=== PATIENT | female | born 1940 | race Hispanic/Latino ===

== ENCOUNTER 2018-08-16 10:13 | Emergency (ER) | payer OTHER ==
[2018-08-16 10:54] LABS: Absolute Lymphocytes (CBC) 1.3 K/uL (0.7-4.9); Absolute Monocytes 0.6 K/uL (0.1-1.3); Absolute Neutrophil 8.6 K/uL (1.8-8.0); Basophils % 0.9 % (0-1.3); Eosinophils % 0.8 % (0-4.4); Hematocrit 32.8 % (36.0-45.0); Lymphocytes % 12.2 % (15.3-44.8); MPV 8.2 fL (7.6-11.3); Monocytes % 5.5 % (3.3-12.3); RBC Red Blood Cell Count 3.62 M/uL (3.86-4.86)
--- NOTE | 2018-08-16 11:08 | RAD REPORT ---
EXAM DESCRIPTION: CT - Head Brain Wo Cont - 08/16/2018 10:46 am CLINICAL HISTORY: CONFUSED CVA symptomology, headache COMPARISON: HEAD BRAIN W O CONTRAST dated 12/27/2009; HEAD BRAIN W O CONTRAST dated 11/13/2009 TECHNIQUE: All CT scans are performed using dose optimization technique as appropriate and may inclu de automated exposure control or mA/KV adjustment according to patient size. FINDINGS: No intracranial hemorrhage, hydrocephalus or extra-axial fluid collection.7 cm area of dim inished density is seen in the right frontoparietal region compatible with nonhemorrhagic CVA. The paranasal sinuses and mastoids are clear. The calvarium is intact. IMPRESSION: 7 cm area of non-hemorrhagic CVA right frontoparietal region. The findings were discussed with Dr. Cordero On 08/16/2018 at 11 a.m. by telephone.
[2018-08-16] MEDS ORDERED: ONDANSETRON 4 MG/2 ML VIAL ONE (11:21)
[2018-08-16 11:24] LABS: Urine Bacteria 20-50 /HPF (<20); Urine Culture Reflex Order NOT NEEDED
--- NOTE | 2018-08-16 11:31 | RAD REPORT ---
EXAM DESCRIPTION: RAD - Chest Single View - 08/16/2018 11:11 am CLINICAL HISTORY: AMS, ESRD Chest pain. COMPARISON: Chest Single View dated 12/15/2016; Chest Single View dated 04/19/2016; Chest Single View da kayleen 04/17/2016; CHEST SINGLE VIEW dated 10/22/2013 FINDINGS: Portable technique limits examination quality. Moderate pulmonary edema is seen. The heart is significantly enlarged in size. No displaced fractures . IMPRESSION: Moderate CHF versus volume overload pattern.
[2018-08-16 11:34] LABS: Potassium 3.2 mmol/L (3.5-5.1)
[2018-08-16] MEDS ORDERED: ASPIRIN 81 MG CHEWABLE TABLET ONE (11:39)
--- NOTE | 2018-08-16 11:42 | ER ---
Nurse's Notes [facility] Name: Beti Sanchez Age: 77 yrs Sex: Female : 1940 Arrival Date: 08/16/2018 Time: 10:18 Bed 6 Private MD: Diagnosis: Ischemic stroke;Altered mental status, unspecified;End stage renal disease Presentation: 08/16 10:20 Presenting complaint: EMS states: pt was taken to dialysis this morning, had missed sg dialysis on Sunday, dialysis nurse reported the pt to be altered and confused so notified family, family reported that the patient became confused last night around 7 pm. pt aa\T\ox1 to self, pt family reports that the patient is normally aa\T\ox3 at home. Transition of care: patient was not received from another setting of care. Onset of symptoms was August 16, 2018. Risk Assessment: Do you want to hurt yourself or someone else? Patient reports no desire to harm self or others. Initial Sepsis Screen: Does the patient meet any 2 criteria? HR > 90 bpm. Does the patient have a suspected source of infection? Yes: Other: dialysis pt. Care prior to arrival: IV initiated. 22 GA, in the right forearm, Glucose check: 127. 10:20 Method Of Arrival: EMS: [facility] sg 10:20 Acuity: KEANU 2 sg 10:20 No acute neurological deficit is noted. The patients blood glucose was checked before iw arriving to the hospital and was found to be normal. Triage Assessment: 10:50 The onset of the patients symptoms was August 15, 2018 at 19:00. iw 10:50 Neuro: Reports. iw Stroke Activation: Symptom onset > 6 hours Physician: Stroke Attending; Name: ; Notified At: ; Arrived At: Physician: Chief Stroke Resident; Name: ; Notified At: ; Arrived At: Physician: Stroke Resident; Name: ; Notified At: ; Arrived At: Physician: ED Attending; Name: ; Notified At: ; Arrived At: Physician: ED Resident; Name: ; Notified At: ; Arrived At: Historical: - Allergies: 10:34 No Known Allergies; sg - Home Meds: 11:22 Bumex Oral 4 mg daily [Active]; Lantus 100 unit/mL Sub-Q soln 15 units daily [Active]; sg metaxalone 400 mg Oral tab daily [Active]; omeprazole 40 mg Oral cpDR 1 cap once daily [Active]; Phenergan Oral 25 mg daily [Active]; ropinirole 0.25 mg Oral tab 1 tab every 6 hours PRN [Active]; clonidine HCl 0.1 mg Oral tab 1 tab once daily [Active]; PhosLo 667 mg Oral cap 2 caps 3 times per day [Active]; - PMHx: 10:34 Diabetes - NIDDM; ESRD; sg - PSHx: 10:34 HD left arm access; sg - Immunization history:: Adult Immunizations unknown. - Social history:: Smoking status: Patient/guardian denies using tobacco. - Family history:: not pertinent. - Ebola Screening: : Patient negative for fever greater than or equal to 101.5 degrees Fahrenheit, and additional compatible Ebola Virus Disease symptoms Patient denies exposure to infectious person Patient denies travel to an Ebola-affected area in the 21 days before illness onset No symptoms or risks identified at this time. - Hospitalizations: : No recent hospitalization is reported. Screenin:42 Abuse screen: Denies threats or abuse. Denies injuries from another. Nutritional iw screening: No deficits noted. Tuberculosis screening: No symptoms or risk factors identified. Fall Risk IV access (20 points). Assessment: 10:35 General: Appears in no apparent distress. Behavior is calm. General: Denies fever, iw feeling ill. Pain: Denies pain. Neuro: Level of Consciousness is awake, alert, obeys commands, Oriented to person, place, time, Moves all extremities. Cardiovascular: Heart tones S1 S2 present Patient's skin is warm and dry. Dialysis shunt: in the dorsal aspect of left forearm, with palpable thrill, with auscultated bruit, with no erythema, with no edema, no bleeding noted. Cardiovascular: Denies chest pain, shortness of breath, Pulses are all present. Edema is absent. Respiratory: Respiratory effort is even, unlabored, Respiratory pattern is regular, symmetrical, Breath sounds are clear bilaterally. Denies cough, shortness of breath. GI: Abdomen is round Bowel sounds present X 4 quads. Abd is soft and non tender X 4 quads. Patient currently denies diarrhea, vomiting. Derm: Skin is intact, is healthy with good turgor. Musculoskeletal: Range of motion: intact in all extremities. 10:35 Reassessment: pt completed almost all dialysis, stopped 30 minutes short, pt is A\T\OX3, iw keeps repeating same sentence, states she wants to go home, daughter in law at bedside but states she does not normally see her every day and does not know how pt normally acts. 10:35 VAN Scoring: Arm Drift: Patients demonstrates NO arm weakness. Patient is VAN Negative. iw 10:40 T-PA (Activase) Screening: Contraindications: Patient reports onset of signs and iw symptoms of stroke greater than 6 hours ago: Yes. 11:10 Patient has been NPO before screening. The patient is alert, and able to follow iw commands. The patient does not exhibit slurred or garbled speech. The patient is not exhibiting difficulty speaking. The patient does not exhibit difficulty understanding words. The patient is able to swallow own secretions with no drooling or need for suction. Patient tolerated one teaspoon of water. No drooling, immediate coughing, gurgling, or clearing of the throat was noted. The patient tolerated 90mL of water. No drooling, immediate coughing, gurgling, or clearing of the throat was noted. The patient passed the bedside swallow screening. Oral medications may be given as ordered. Contact Physician for further diet orders. Provider notified of bedside swallow screening results: Ervin Cordero MD. 11:14 Reassessment: Spoke with daughter on phone, will come to ER. iw 12:48 Reassessment: Patient appears in no apparent distress at this time. No changes from iw previously documented assessment. 13:30 Reassessment: Patient appears in no apparent distress at this time. Patient and/or iw family updated on plan of care and expected duration. Pain level reassessed. Patient denies pain at this time. Vital Signs: 10:32 BP 136 / 77; Pulse 127 MON; Resp 17; Temp 97.6; Pulse Ox 98% on R/A; sg 10:55 BP 135 / 65; Pulse 118; Resp 16 S; Pulse Ox 98% on R/A; Pain 0/10; iw 12:48 BP 146 / 79; Pulse 118; Resp 16 S; Pulse Ox 99% on R/A; Pain 0/10; iw 13:20 BP 114 / 63; Pulse 107; Resp 16; Temp 98.0(TE); Pulse Ox 98% on R/A; Pain 0/10; iw 10:32 A fib sg NIH Stroke Scale Scores: 11:10 NIHSS Score: 3 iw ED Course: 10:18 Patient arrived in ED. rn 10:19 Ervin Cordero MD is Attending Physician. rn 10:25 Patient has correct armband on for positive identification. iw 10:30 Maintain EMS IV. Dressing intact. Good blood return noted. Site clean \T\ dry. Gauge \T\ iw site: 22RFA. 10:32 Triage completed. sg 10:33 Arm band placed on. sg 10:36 EKG done, by agricultural engineering technicians. reviewed by Ervin Cordero MD. sm3 10:39 Jumana Malik, GUILLERMO is Primary Nurse. iw 10:40 Initial lab(s) drawn, by me, sent to lab. iw 10:45 CT completed. Patient tolerated procedure well. Patient moved to CT via stretcher. sj Patient moved back from CT. 10:46 CT Head Brain wo Cont In Process Unspecified. EDMS 10:57 First set of blood cultures drawn by ED staff. dh3 10:57 Inserted saline lock: 22 gauge in right antecubital area, using aseptic technique. 3 Blood collected. by Tim Ramos. 11:11 XRAY Chest (1 view) In Process Unspecified. EDMS 11:39 transfer initiated with Alysa at the [facility] transfer center. ms 11:59 Repeat lab(s) drawn. by ny, sent to lab. 3 12:[address] Flores the hospitalist and Dr. De La Cruz the neurologist manager of broadcast content for [facility] with Dr. Cordero for patient transfer consultation. 12:11 administrative approval given by Sarah Dunham RN transfer center/ patient has been eb accepted to the [facility] 22 tower bed 2222/ Dr. Flores has accepted the patient in transfer/ report to be called to [phone]. 14:01 No provider procedures requiring assistance completed. Patient transferred, IV remains iw in place. Administered Medications: 11:00 Drug: Zofran 4 mg Route: IVP; Site: right forearm; iw 11:20 Drug: Aspirin Chewable Tablet 324 mg Route: PO; iw Point of Care Testing: Blood Glucose: 10:32 Blood Glucose: 127 mg/dL; iw Ranges: Outcome: 11:41 ER care complete, transfer ordered by . guillermo 14:04 Transferred by ground EMS to [facility], [facility] [place], Transfer form completed. iw X-rays sent w/ patient. 14:04 Condition: good 14:04 Discharge instructions given to patient, family, Instructed on the need for transfer, Demonstrated understanding of instructions. 14:05 Patient left the ED. NIH Stroke Scale - NIH Stroke Score Date: 08/16/2018 Time: 11:10 Total Score = 3 1a. Level of Consciousness (LOC) - 0(Alert) 1b. Level of Consciousness (LOC) (Year \T\ Age) - 1(One) 1c. LOC Commands (Open \T\ Closes Eyes/Fugitive Detective) - 0(Both) 2. Best Gaze (Lateral Gaze Paresis) - 0(Normal) 3. Visual Field Loss - 0(No visual loss) 4. Facial Palsy - 0(Normal) 5a. Left Arm: Motor (10-second hold) - 0(No drift) 5b. Right Arm: Motor (10-second hold) - 0(No drift) 6a. Left Leg: Motor (5-second hold - always test supine) - 0(No drift) 6b. Right Leg: Motor (5-second hold - always test supine) - 0(No drift) 7. Limb Ataxia (finger/nose \T\ heel/christianson - test with eyes open) - 0(Absent) 8. Sensory Loss (pinprick arms/legs/face) - 0(Normal) 9. Best Language: Aphasia (description/naming/reading) - 1(Mild to moderate aphasia) 10. Dysarthria (speech clarity - read or repeat words) - 0(Normal) 11. Extinction and Inattention (visual/tactile/auditory/spatial/personal) - 1(Present) Initials: Signatures: Dispatcher [employer] EDMarino Serna RN RN sg Jones, Susan sj Williams, Irene, RN RN iw Amber Perez ms, Roman, MD MD rn Herrera, Miesha 3 Carlene Delgado Shakira sm3 Corrections: (The following items were deleted from the chart) 11:17 10:20 Care prior to arrival: IV initiated. 22 GA, in the right forearm, sg sg
--- NOTE | 2018-08-16 11:42 | EDPHYS ---
Physician Documentation [facility] Name: Beti Sanchez Age: 77 yrs Sex: Female : 1940 Arrival Date: 08/16/2018 Time: 10:18 Bed 6 Private MD: ED Physician Ervin Cordero HPI: 08/16 10:20 This 77 yrs old Female presents to ER via Unassigned with complaints of AMS. rn 10:20 The patient presents with confusion, decreased responsiveness. Onset: The rn symptoms/episode began/occurred last night, at 20:00. Possible causes: unknown. Associated signs and symptoms: Pertinent positives: confusion, Pertinent negatives: abdominal pain, chest pain, headache, seizure, shortness of breath. Current symptoms: In the emergency department the patient's symptoms have improved. It is unknown whether or not the patient has had similar symptoms in the past. Sent from dialysis for AMS, family reported to EMS that noticed change in sensorium last night around 1999, patient denies pain, only reports generalized weakness. NO fever. Normal glucose for EMS. Only did about 30 min of dialysis today and sent for AMS. NO known trauma. . Historical: - Allergies: 10:34 No Known Allergies; sg - Home Meds: 11:22 Bumex Oral 4 mg daily [Active]; Lantus 100 unit/mL Sub-Q soln 15 units daily [Active]; sg metaxalone 400 mg Oral tab daily [Active]; omeprazole 40 mg Oral cpDR 1 cap once daily [Active]; Phenergan Oral 25 mg daily [Active]; ropinirole 0.25 mg Oral tab 1 tab every 6 hours PRN [Active]; clonidine HCl 0.1 mg Oral tab 1 tab once daily [Active]; PhosLo 667 mg Oral cap 2 caps 3 times per day [Active]; - PMHx: 10:34 Diabetes - NIDDM; ESRD; sg - PSHx: 10:34 HD left arm access; sg - Immunization history:: Adult Immunizations unknown. - Social history:: Smoking status: Patient/guardian denies using tobacco. - Family history:: not pertinent. - Ebola Screening: : Patient negative for fever greater than or equal to 101.5 degrees Fahrenheit, and additional compatible Ebola Virus Disease symptoms Patient denies exposure to infectious person Patient denies travel to an Ebola-affected area in the 21 days before illness onset No symptoms or risks identified at this time. - Hospitalizations: : No recent hospitalization is reported. ROS: 10:20 Constitutional: Negative for fever, chills, and weight loss, Eyes: Negative for injury, rn pain, redness, and discharge, Neck: Negative for injury, pain, and swelling, Cardiovascular: Negative for chest pain, palpitations, and edema, Respiratory: Negative for shortness of breath, cough, wheezing, and pleuritic chest pain, Abdomen/GI: Negative for abdominal pain, nausea, vomiting, diarrhea, and constipation, MS/Extremity: Negative for injury and deformity, Skin: Negative for injury, rash, and discoloration, Neuro: Negative for headache, numbness, tingling, and seizure. Exam: 10:20 Constitutional: This is a well developed, well nourished patient who is awake, alert, rn and in no acute distress. Head/Face: Normocephalic, atraumatic. Eyes: Pupils equal round and reactive to light, extra-ocular motions intact. Lids and lashes normal. Conjunctiva and sclera are non-icteric and not injected. Cornea within normal limits. Periorbital areas with no swelling, redness, or edema. ENT: dry MM Neck: Trachea midline, no thyromegaly or masses palpated, and no cervical lymphadenopathy. Supple, full range of motion without nuchal rigidity, or vertebral point tenderness. No Meningismus. Cardiovascular: Irregular rate and rhythm. No pulse deficits. Respiratory: Lungs have equal breath sounds bilaterally, diminished bilateral bases. Abdomen/GI: soft, non-tender Skin: Warm, dry, no evidence of cellulitis. MS/ Extremity: Pulses equal, no cyanosis. Neurovascular intact. Full, normal range of motion. Equal circumference. Neuro: Awake and alert, GCS 15, oriented to person, place, time, and situation. Cranial nerves II-XII grossly intact. Motor strength 4/5 in all extremities. Sensory grossly intact. 10:38 ECG was reviewed by the Attending Physician. rn Vital Signs: 10:32 BP 136 / 77; Pulse 127 MON; Resp 17; Temp 97.6; Pulse Ox 98% on R/A; sg 10:55 BP 135 / 65; Pulse 118; Resp 16 S; Pulse Ox 98% on R/A; Pain 0/10; iw 12:48 BP 146 / 79; Pulse 118; Resp 16 S; Pulse Ox 99% on R/A; Pain 0/10; iw 13:20 BP 114 / 63; Pulse 107; Resp 16; Temp 98.0(TE); Pulse Ox 98% on R/A; Pain 0/10; iw 10:32 A fib sg NIH Stroke Scale Scores: 11:10 NIHSS Score: 3 iw MDM: 10:19 Patient medically screened. rn 11:07 ED course: No TPA indicated due to last known normal last night and large cerebral rn infarction on CT. Family contacted and are coming in to hospital. . 11:39 Differential Diagnosis: CVA, electrolyte abnormality, hypoglycemia, intracranial bleed, rn volume depletion. Differential Diagnosis: UTI. Data reviewed: vital signs, nurses notes. Data reviewed: lab test result(s), EKG, radiologic studies, CT scan, and as a result, I will admit patient. Counseling: I had a detailed discussion with the patient and/or guardian regarding: the historical points, exam findings, and any diagnostic results supporting the discharge/admit diagnosis, lab results, radiology results, the need for further work-up and treatment in the hospital, the need to transfer to another facility. Medical screen evaluation completed. EMTALA emergency medical condition absent. Response to treatment: There is no appreciated change of the patient's symptoms at this time, and as a result, I will admit patient. 12:04 ED course: Accepted for transfer to [facility] for ischemic stroke. Still waiting on rn patient care. . 08/16 10:20 Order name: CBC with Diff rn 08/16 10:20 Order name: Basic Metabolic Panel; Complete Time: 11:38 rn 08/16 10:20 Order name: Lactate; Complete Time: 11:08 rn 08/16 10:20 Order name: Urine Culture rn 08/16 10:20 Order name: Urine Microscopic Only; Complete Time: 11:38 rn 08/16 10:20 Order name: Procalcitonin; Complete Time: 13:12 rn 08/16 10:20 Order name: XRAY Chest (1 view); Complete Time: 11:38 rn 08/16 10:20 Order name: CT Head Brain wo Cont; Complete Time: 11:21 rn 08/16 10:20 Order name: Blood Culture Adult (2) rn 08/16 10:20 Order name: N-Terminal Pro-brain Natriuretic Peptide; Complete Time: 11:38 rn 08/16 10:20 Order name: CBC with Automated Diff; Complete Time: 11:02 EDMS 08/16 10:42 Order name: Urine Dipstick--Ancillary (enter results) eb 08/16 11:41 Order name: BUN; Complete Time: 13:12 hb 08/16 10:20 Order name: IV Start; Complete Time: 10:41 rn 08/16 10:20 Order name: Urine Dipstick-Ancillary (obtain specimen); Complete Time: 10:41 rn 08/16 10:30 Order name: EKG; Complete Time: 10:30 rn 08/16 10:30 Order name: EKG - Nurse/Tech; Complete Time: 10:41 rn EC:38 Rate is 122 beats/min. Rhythm is irregularly irregular. QRS [place] is Normal. [place] interval rn is normal. QRS interval is normal. QT interval is normal. No Q waves. T waves are Inverted in leads I, aVL. ST Segment is depressed in leads V4, V5, V6. Clinical impression: Atrial Fibrillation. Interpreted by me. Reviewed by me. Administered Medications: 11:00 Drug: Zofran 4 mg Route: IVP; Site: right forearm; iw 11:20 Drug: Aspirin Chewable Tablet 324 mg Route: PO; iw Point of Care Testing: Blood Glucose: 10:32 Blood Glucose: 127 mg/dL; iw Ranges: Critical Glucose Levels:Adult <50 mg/dl or >400 mg/dl <40 mg/dl or >180 mg/dl Disposition: 08/16/18 11:41 Transfer ordered to [facility]. Diagnosis are Ischemic stroke, Altered mental status, unspecified, End stage renal disease. - Reason for transfer: Higher level of care. - Accepting physician is . - Condition is Stable. - Problem is new. - Symptoms are unchanged. NIH Stroke Scale - NIH Stroke Score Date: 08/16/2018 Time: 11:10 Total Score = 3 1a. Level of Consciousness (LOC) - 0(Alert) 1b. Level of Consciousness (LOC) (Year \T\ Age) - 1(One) 1c. LOC Commands (Open \T\ Closes Eyes/Alternative Financing Specialist) - 0(Both) 2. Best Gaze (Lateral Gaze Paresis) - 0(Normal) 3. Visual Field Loss - 0(No visual loss) 4. Facial Palsy - 0(Normal) 5a. Left Arm: Motor (10-second hold) - 0(No drift) 5b. Right Arm: Motor (10-second hold) - 0(No drift) 6a. Left Leg: Motor (5-second hold - always test supine) - 0(No drift) 6b. Right Leg: Motor (5-second hold - always test supine) - 0(No drift) 7. Limb Ataxia (finger/nose \T\ heel/christianson - test with eyes open) - 0(Absent) 8. Sensory Loss (pinprick arms/legs/face) - 0(Normal) 9. Best Language: Aphasia (description/naming/reading) - 1(Mild to moderate aphasia) 10. Dysarthria (speech clarity - read or repeat words) - 0(Normal) 11. Extinction and Inattention (visual/tactile/auditory/spatial/personal) - 1(Present) Initials: iw Signatures: Dispatcher [employer] EDMarino Serna RN RN sg Williams, Irene, RN RN iw Nieto, Roman, MD MD record label internship: (The following items were deleted from the chart) 10:40 10:20 Constitutional: This is a well developed, well nourished patient who is rn awake, alert, and in no acute distress. Head/Face: Normocephalic, atraumatic. Eyes: Pupils equal round and reactive to light, extra-ocular motions intact. Lids and lashes normal. Conjunctiva and sclera are non-icteric and not injected. Cornea within normal limits. Periorbital areas with no swelling, redness, or edema. ENT: dry MM Neck: Trachea midline, no thyromegaly or masses palpated, and no cervical lymphadenopathy. Supple, full range of motion without nuchal rigidity, or vertebral point tenderness. No Meningismus. Cardiovascular: Regular rate and rhythm. No pulse deficits. Respiratory: Lungs have equal breath sounds bilaterally, diminished bilateral bases. Abdomen/GI: soft, non-tender Skin: Warm, dry, no evidence of cellulitis. MS/ Extremity: Pulses equal, no cyanosis. Neurovascular intact. Full, normal range of motion. Equal circumference. Neuro: Awake and alert, GCS 15, oriented to person, place, time, and situation. Cranial nerves II-XII grossly intact. Motor strength 4/5 in all extremities. Sensory grossly intact. rn 11:43 11:41 CREATININE, SERUM+C.LAB.BRZ ordered. EDMS EDMS 14:05 11:41 08/16/2018 11:41 Transfer ordered to [facility]. iw Diagnosis is Ischemic stroke; Altered mental status, unspecified; End stage renal disease. Reason for transfer: Higher level of care. Accepting physician is . Condition is Stable. Problem is new. Symptoms are unchanged. rn
[2018-08-16 13:51] LABS: Urine Blood TRACE (NEG); Urine Glucose TRACE (NEG); Urine Protein 3+ (NEG)
[2018-08-16 14:39] VITALS: BP 114/63; TEMP 98; O2SAT 98
--- NOTE | 2018-08-16 15:16 | EKG ---
Test Date: 2018-08-16 Test Time: 10:36:33 Beck Tender: LUIS F MEASUREMENT RESULTS: Intervals: Rate: 122 NM: QRSD: 86 QT: 358 QTc: 510 Erwin: P: NM: QRS: -3 T: 189 INTERPRETIVE STATEMENTS: Atrial fibrillation with rapid ventricular response with premature ventricular or aberrantly conducted complexes Marked ST abnormality, possible inferior subendocardial injury Abnormal ECG Compared to ECG 12/15/2016 08:16:25 Ventricular premature complex(es) now present ST (T wave) deviation now present Sinus rhythm no longer present Left-axis deviation no longer present T-wave abnormality no longer present Electronically Signed On 08-16-18 15:15:35 CDT by Haroldo Arizmendi
== END 2018-08-16 14:05 | disposition short-term general hospital (02) ==
LOC: ER 10:13
DX: I63.9 Cerebral infarction, unspecified (principal); N18.6 End stage renal disease; E11.9 Type 2 diabetes mellitus without complications; Z79.4 Long term (current) use of insulin
CPT/HCPCS: 93005; 87040 ×2; 87088; 85025; 80048; 36415; 84520; 83605; 84145; 83880; 70450; 71045; 96374; 99285; J2405; 81003; 81015; 87086

== ENCOUNTER 2018-09-05 17:57 | Emergency (ER) | payer MEDICARE, OTHER ==
--- OUTSIDE RECORDS SUMMARY | 2018-09-05 18:00 | XMS REPORT ---
:1940 [facility] Address [address] [place] [address] [address]. [address] [place] [address] Care Team Providers Name Role Phone RENETTA BEASLEY Unavailable Unavailable Problems This patient has no known problems. Allergies, Adverse Reactions, Alerts This patient has no known allergies or adverse reactions. Medications This patient has no known medications. Results Test Description Test Time Test Comments Text Results Atomic Results Result Comments CBC (HEMOGRAM ONLY) 2018-08-20 05:52:00 Test Item Value Reference Range Comments WHITE BLOOD CELL COUNT (BEAKER) (test iohs=271) 10.4 K/ L 3.5-10.5 RED BLOOD CELL COUNT (BEAKER) (test yfyy=304) 4.15 M/ L 3.93-5.22 HEMOGLOBIN (BEAKER) (test jekk=601) 11.8 GM/DL 11.2-15.7 HEMATOCRIT (BEAKER) (test jsiw=167) 39.9 % 34.1-44.9 MEAN CORPUSCULAR VOLUME (BEAKER) (test neqd=897) 96.1 fL 79.4-94.8 MEAN CORPUSCULAR HEMOGLOBIN (BEAKER) (test unlk=087) 28.4 pg 25.6-32.2 MEAN CORPUSCULAR HEMOGLOBIN CONC (BEAKER) (test ycip=495) 29.6 GM/DL 32.2- 35.5 RED CELL DISTRIBUTION WIDTH (BEAKER) (test wkhx=316) 16.2 % 11.7-14.4 PLATELET COUNT (BEAKER) (test qclt=585) 347 K/CU MM 150-450 MEAN PLATELET VOLUME (BEAKER) (test omuq=302) 9.9 fL 9.4-12.3 NUCLEATED RED BLOOD CELLS (BEAKER) (test ouml=662) 0 /100 WBC 0-0 CALCIUM, [id number] 07:30:00 Test Item Value Reference Range Comments CALCIUM IONIZED (BEAKER) (test xgnq=448) 1.00 mmol/L 1.12-1.27 PH, BLOOD (BEAKER) (test vtcb=4834) 7.41 COMPREHENSIVE METABOLIC [id number] 06:54:00 Test Item Value Reference Range Comments TOTAL PROTEIN (BEAKER) 8.0 gm/dL 6.0-8.3 (test ppfq=774) ALBUMIN (BEAKER) (test 3.4 g/dL 3.5-5.0 xndd=7114) ALKALINE PHOSPHATASE 130 U/L 40-150 (BEAKER) (test eagw=680) BILIRUBIN TOTAL (BEAKER) 0.5 mg/dL 0.2-1.2 (test dgin=613) SODIUM (BEAKER) (test 137 meq/L 136-145 myrr=669) POTASSIUM (BEAKER) (test 3.9 meq/L 3.5-5.1 pvwd=366) CHLORIDE (BEAKER) (test 98 meq/L 98-107 mtns=524) CO2 (BEAKER) (test 27 meq/L 22-29 hhke=921) BLOOD UREA NITROGEN 26 mg/dL 7-21 (BEAKER) (test gxxk=181) CREATININE (BEAKER) (test 3.67 mg/dL 0.57-1.25 dfab=635) GLUCOSE RANDOM (BEAKER) 182 mg/dL 70-105 (test pkbt=014) CALCIUM (BEAKER) (test 9.0 mg/dL 8.4-10.2 xwzk=725) AST (SGOT) (BEAKER) (test 28 U/L 5-34 qyny=804) ALT (SGPT) (BEAKER) (test 50 U/L 6-55 kmko=035) EGFR (BEAKER) (test 12 mL/min/1.73 sq m ESTIMATED GFR IS NOT trnv=3883) ACCURATE CREATININE CLEARANCE IN PREDICTING GLOMERULAR FILTRATION RATE. ESTIMATED GFR IS NOT APPLICABLE FOR DIALYSIS PATIENTS. [id number] 06:48:00 Test Item Value Reference Range Comments PHOSPHORUS (BEAKER) (test wmbu=589) 3.7 mg/dL 2.3-4.7 [id number] 06:48:00 Test Item Value Reference Range Comments MAGNESIUM (BEAKER) (test dcwc=454) 2.1 mg/dL 1.6-2.6 CBC W/PLT COUNT & AUTO [id number] 06:33:00 Test Item Value Reference Range Comments WHITE BLOOD CELL COUNT (BEAKER) (test wmur=611) 10.8 K/ L 3.5-10.5 RED BLOOD CELL COUNT (BEAKER) (test pwok=024) 3.53 M/ L 3.93-5.22 HEMOGLOBIN (BEAKER) (test cthk=817) 10.0 GM/DL 11.2-15.7 HEMATOCRIT (BEAKER) (test uivv=579) 33.8 % 34.1-44.9 MEAN CORPUSCULAR VOLUME (BEAKER) (test cyjh=480) 95.8 fL 79.4-94.8 MEAN CORPUSCULAR HEMOGLOBIN (BEAKER) (test 28.3 pg 25.6-32.2 bcpy=491) MEAN CORPUSCULAR HEMOGLOBIN CONC (BEAKER) (test 29.6 GM/DL 32.2-35.5 neio=485) RED CELL DISTRIBUTION WIDTH (BEAKER) (test 16.3 % 11.7-14.4 hawr=576) PLATELET COUNT (BEAKER) (test qvon=707) 338 K/CU MM 150-450 MEAN PLATELET VOLUME (BEAKER) (test inhe=612) 9.7 fL 9.4-12.3 NUCLEATED RED BLOOD CELLS (BEAKER) (test 0 /100 WBC 0-0 lxbn=948) NEUTROPHILS RELATIVE PERCENT (BEAKER) (test 78 % pkpv=979) LYMPHOCYTES RELATIVE PERCENT (BEAKER) (test 11 % ucow=412) MONOCYTES RELATIVE PERCENT (BEAKER) (test 9 % aoee=261) EOSINOPHILS RELATIVE PERCENT (BEAKER) (test 1 % bcbc=789) BASOPHILS RELATIVE PERCENT (BEAKER) (test 1 % rzfo=183) NEUTROPHILS ABSOLUTE COUNT (BEAKER) (test 8.36 K/ L 1.56-6.13 dbwk=958) LYMPHOCYTES ABSOLUTE COUNT (BEAKER) (test 1.22 K/ L 1.18-3.74 tqdz=260) MONOCYTES ABSOLUTE COUNT (BEAKER) (test 0.94 K/ L 0.24-0.36 lfpl=746) EOSINOPHILS ABSOLUTE COUNT (BEAKER) (test 0.10 K/ L 0.04-0.36 pree=013) BASOPHILS ABSOLUTE COUNT (BEAKER) (test 0.08 K/ L 0.01-0.08 vkjt=185) IMMATURE GRANULOCYTES-RELATIVE PERCENT (BEAKER) 1 % 0-1 (test kgkl=0986) CBC (HEMOGRAM ONLY)2018-08-19 05:57:00 Test Item Value Reference Range Comments WHITE BLOOD CELL COUNT (BEAKER) (test ainz=991) 10.8 K/ L 3.5-10.5 RED BLOOD CELL COUNT (BEAKER) (test qwxx=787) 3.53 M/ L 3.93-5.22 HEMOGLOBIN (BEAKER) (test olxm=711) 10.0 GM/DL 11.2-15.7 HEMATOCRIT (BEAKER) (test yfbc=212) 33.8 % 34.1-44.9 MEAN CORPUSCULAR VOLUME (BEAKER) (test agph=950) 95.8 fL 79.4-94.8 MEAN CORPUSCULAR HEMOGLOBIN (BEAKER) (test 28.3 pg 25.6-32.2 wltb=174) MEAN CORPUSCULAR HEMOGLOBIN CONC (BEAKER) (test 29.6 GM/DL 32.2-35.5 usir=746) RED CELL DISTRIBUTION WIDTH (BEAKER) (test 16.3 % 11.7-14.4 azvb=350) PLATELET COUNT (BEAKER) (test jzyn=292) 338 K/CU MM 150-450 MEAN PLATELET VOLUME (BEAKER) (test ykrt=758) 9.7 fL 9.4-12.3 NUCLEATED RED BLOOD CELLS (BEAKER) (test 0 /100 WBC 0-0 thir=799) [id number] 12:10:00 Test Item Value Reference Range Comments PARTIAL THROMBOPLASTIN TIME (BEAKER) (test 37.1 seconds 22.5-36.0 xiqc=947) Prior to initiating heparinPROTHROMBIN TIME/[id number] 12:09:00 Test Item Value Reference Range Comments PROTIME (BEAKER) (test qgus=894) 15.1 seconds 11.7-14.7 INR (BEAKER) (test hmkk=847) 1.3 <=5.9 RECOMMENDED COUMADIN/WARFARIN INR THERAPY RANGESSTANDARD DOSE: 2.0 - 3.0 Includes: PROPHYLAXIS forvenous thrombosis, systemic embolization; TREATMENT for venous thrombosis and/or pulmonary embolus.HIGH RISK: Target INR is 2.5-3.5 for patients with mechanical heart valves.Prior to initiating heparinPLATELET [id number] 11:57:00 Test Item Value Reference Range Comments PLATELET COUNT (BEAKER) (test rvpo=317) 353 K/CU MM 150-450 HEPATITIS B [id number] 07:31:00 Test Item Value Reference Range Comments HEPATITIS B CORE TOTAL ANTIBODY (BEAKER) (test Nonreactive Nonreactive looe=014) HEPATITIS B SURFACE ANTIBODY (BEAKER) (test 193.7 mIU/mL <8.0 mmks=966) HEPATITIS B SURFACE ANTIGEN (2) (BEAKER) (test Nonreactive Nonreactive jwzh=9561) TSH/FREE T4 IF [id number] 06:33:00 Test Item Value Reference Range Comments THYROID STIMULATING HORMONE (BEAKER) (test 1.35 uIU/mL 0.35-4.94 hvrm=121) VITAMIN B12 AND [id number] 06:33:00 Test Item Value Reference Range Comments VITAMIN B12 (BEAKER) (test yfxo=286) 941 pg/mL 213-816 FOLATE (BEAKER) (test wftp=643) 7.1 ng/mL >=7.0 MR, BRAIN, WITHOUT [id number] 17:17:00Reason for exam:->StrokeWhat is the patient's sedation requirement?->No SedationFINAL REPORT MR, BRAIN, WITHOUT CONTRAST INDICATION: StrokeStroke TECHNIQUE: Multiplanar, multisequence MR imaging of the brain was obtained. COMPARISON: None FINDINGS: Restricted diffusion with concomitant decreased signal on ADC and FLAIR hyperintensity corresponding to the right SCIENTIFIC DIRECTOR distribution, with some MCA contribution more cranially, compatible with acute ischemic insult. No evidence of hemorrhagic transformation. Brain parenchyma is otherwise normal in morphology. Midline structures are normally developed. Scattered T2/ FLAIR hyperintense foci within the periventricular and subcortical white matter are nonspecific, however, statistically represent chronic microvascular ischemic changes. No hydrocephalus. Orbits are within normal limits. No obstructive paranasal sinus disease. Calvarium and skull base demonstrate marrow signal within normal limits for age without focal lesion. Additional findings: On sagittal T1-weighted images, intrinsic T1 shortening within the C4 vertebral body is noted and incompletely imaged on single phase exam. Intrinsic T1 shortening, however, statistically represents a benign osseous hemangioma. IMPRESSION: Acute stroke involving the right SCIENTIFIC DIRECTOR and MCA distribution. Upon review of the electronic medical record, clinical team is aware at this time and findings on MRI corresponding to findings on outside institution CT August 16, 2018. Signed: Lizzette Mendesepveronique Verified Date/Time: 08/17/2018 17:17:49 Reading Location: [address] Neuro Reading Room [facility] METABOLIC [id number] 14:58:00 Test Item Value Reference Range Comments SODIUM (BEAKER) (test 136 meq/L 136-145 hiqo=597) POTASSIUM (BEAKER) (test 5.6 meq/L 3.5-5.1 furs=968) CHLORIDE (BEAKER) (test 105 meq/L 98-107 bmcq=514) CO2 (BEAKER) (test 19 meq/L 22-29 zsrl=358) BLOOD UREA NITROGEN 24 mg/dL 7-21 (BEAKER) (test bxkv=929) CREATININE (BEAKER) (test 3.37 mg/dL 0.57-1.25 wzcq=809) GLUCOSE RANDOM (BEAKER) 178 mg/dL 70-105 (test lrtw=879) CALCIUM (BEAKER) (test 8.5 mg/dL 8.4-10.2 todg=806) EGFR (BEAKER) (test 13 mL/min/1.73 sq m ESTIMATED GFR IS NOT qdgw=4797) ACCURATE CREATININE CLEARANCE IN PREDICTING GLOMERULAR FILTRATION RATE. ESTIMATED GFR IS NOT APPLICABLE FOR DIALYSIS PATIENTS. [id number] 14:57:00 Test Item Value Reference Range Comments PHOSPHORUS (BEAKER) (test unqj=114) 5.7 mg/dL 2.3-4.7 [id number] 14:57:00 Test Item Value Reference Range Comments MAGNESIUM (BEAKER) (test ilwx=489) 2.2 mg/dL 1.6-2.6 CALCIUM, [id number] 14:48:00 Test Item Value Reference Range Comments CALCIUM IONIZED (BEAKER) (test mldi=839) 1.00 mmol/L 1.12-1.27 PH, BLOOD (BEAKER) (test pidg=2857) 7.37 HEMOGLOBIN [id number] 08:51:00 Test Item Value Reference Range Comments HEMOGLOBIN A1C (BEAKER) (test rjnz=902) 9.0 % 4.3-6.1 LIPID [id number] 06:30:00 Test Item Value Reference Range Comments TRIGLYCERIDES (BEAKER) (test wxil=068) 124 mg/dL CHOLESTEROL (BEAKER) (test noti=001) 84 mg/dL HDL CHOLESTEROL (BEAKER) (test xsnf=567) 36 mg/dL LDL CHOLESTEROL CALCULATED (BEAKER) (test 23 mg/dL biyl=320) Triglyceride Reference Range: Low Risk <150 Borderline 150- 199 High Risk 200-499 Very High Risk >=500Cholesterol Reference Range: Low Risk <200 Borderline 200-239 High Risk > 240HDL Cholesterol Reference Range: Low Risk >=60 High Risk <40LDL Cholesterol Reference Range: Optimal <100 Near Optimal 100-129 Borderline 130-159 High 160-189 Very High >=190 FastingTROPONIN [id number] 00:45:00 Test Item Value Reference Range Comments TROPONIN I (BEAKER) (test lkrl=761) 0.05 ng/mL 0.00-0.03 Troponin I (TnI) levels must be interpreted in the context of the presenting symptoms and the clinical findings. Elevated TnI levels indicate myocardial damage, but are not specific for ischemic heart disease. Elevated TnI levels are seen in patients with other cardiac conditions (including myocarditis and congestive heart failure), and slight TnI elevations occur in patients with other conditions, including sepsis, renal failure, acidosis, acute neurological disease, and persistent tachyarrhythmia.[id number] 18:40:00 Test Item Value Reference Range Comments RPR SCREEN (BEAKER) (test epak=624) Nonreactive Nonreactive [id number] 17:38:00 Test Item Value Reference Range Comments HOMOCYSTEINE (BEAKER) (test igdj=397) 21.2 umol/L 5.1-15.4 TROPONIN [id number] 17:25:00 Test Item Value Reference Range Comments TROPONIN I (BEAKER) (test aelk=140) 0.04 ng/mL 0.00-0.03 Troponin I (TnI) levels must be interpreted in the context of the presenting symptoms and the clinical findings. Elevated TnI levels indicate myocardial damage, but are not specific for ischemic heart disease. Elevated TnI levels are seen in patients with other cardiac conditions (including myocarditis and congestive heart failure), and slight TnI elevations occur in patients with other conditions, including sepsis, renal failure, acidosis, acute neurological disease, and persistent tachyarrhythmia.HEPATIC FUNCTION [id number] 17:20: 00 Test Item Value Reference Range Comments TOTAL PROTEIN (BEAKER) (test kyrc=568) 7.0 gm/dL 6.0-8.3 ALBUMIN (BEAKER) (test ttas=3421) 3.0 g/dL 3.5-5.0 BILIRUBIN TOTAL (BEAKER) (test btvp=556) 0.3 mg/dL 0.2-1.2 BILIRUBIN DIRECT (BEAKER) (test spdd=088) 0.2 mg/dL 0.1-0.5 ALKALINE PHOSPHATASE (BEAKER) (test cjhe=313) 71 U/L 40-150 AST (SGOT) (BEAKER) (test mwta=672) 11 U/L 5-34 ALT (SGPT) (BEAKER) (test hicl=073) 8 U/L 6-55 [id number] 17:20:00 Test Item Value Reference Range Comments PREALBUMIN (BEAKER) (test ymfk=763) 17 mg/dL 14-45 BASIC METABOLIC [id number] 17:20:00 Test Item Value Reference Range Comments SODIUM (BEAKER) (test 138 meq/L 136-145 lcvg=241) POTASSIUM (BEAKER) (test 3.2 meq/L 3.5-5.1 oqfz=420) CHLORIDE (BEAKER) (test 104 meq/L 98-107 ktxm=998) CO2 (BEAKER) (test 25 meq/L 22-29 tmla=829) BLOOD UREA NITROGEN 11 mg/dL 7-21 (BEAKER) (test mdnr=971) CREATININE (BEAKER) (test 1.92 mg/dL 0.57-1.25 vxbc=708) GLUCOSE RANDOM (BEAKER) 158 mg/dL 70-105 (test zucb=009) CALCIUM (BEAKER) (test 8.2 mg/dL 8.4-10.2 cdgm=557) EGFR (BEAKER) (test 25 mL/min/1.73 sq m ESTIMATED GFR IS NOT hmnl=7500) ACCURATE CREATININE CLEARANCE IN PREDICTING GLOMERULAR FILTRATION RATE. ESTIMATED GFR IS NOT APPLICABLE FOR DIALYSIS PATIENTS. CBC W/PLT COUNT & AUTO [id number] 17:19:00 Test Item Value Reference Range Comments WHITE BLOOD CELL COUNT (BEAKER) (test yiak=435) 11.9 K/ L 3.5-10.5 RED BLOOD CELL COUNT (BEAKER) (test pfrn=544) 3.23 M/ L 3.93-5.22 HEMOGLOBIN (BEAKER) (test gthb=196) 9.2 GM/DL 11.2-15.7 HEMATOCRIT (BEAKER) (test pyqs=723) 30.9 % 34.1-44.9 MEAN CORPUSCULAR VOLUME (BEAKER) (test vfsi=407) 95.7 fL 79.4-94.8 MEAN CORPUSCULAR HEMOGLOBIN (BEAKER) (test 28.5 pg 25.6-32.2 ztkq=900) MEAN CORPUSCULAR HEMOGLOBIN CONC (BEAKER) (test 29.8 GM/DL 32.2-35.5 xrft=289) RED CELL DISTRIBUTION WIDTH (BEAKER) (test 15.6 % 11.7-14.4 zffv=900) PLATELET COUNT (BEAKER) (test dyyy=105) 373 K/CU MM 150-450 MEAN PLATELET VOLUME (BEAKER) (test kdxe=548) 10.0 fL 9.4-12.3 NUCLEATED RED BLOOD CELLS (BEAKER) (test 0 /100 WBC 0-0 shgf=421) NEUTROPHILS RELATIVE PERCENT (BEAKER) (test 81 % lvte=158) LYMPHOCYTES RELATIVE PERCENT (BEAKER) (test 11 % pxhf=509) MONOCYTES RELATIVE PERCENT (BEAKER) (test 6 % derw=557) EOSINOPHILS RELATIVE PERCENT (BEAKER) (test 0 % rqrq=213) BASOPHILS RELATIVE PERCENT (BEAKER) (test 1 % qpcf=364) NEUTROPHILS ABSOLUTE COUNT (BEAKER) (test 9.71 K/ L 1.56-6.13 exky=816) LYMPHOCYTES ABSOLUTE COUNT (BEAKER) (test 1.32 K/ L 1.18-3.74 ueeo=349) MONOCYTES ABSOLUTE COUNT (BEAKER) (test 0.74 K/ L 0.24-0.36 tffi=121) EOSINOPHILS ABSOLUTE COUNT (BEAKER) (test 0.03 K/ L 0.04-0.36 xvxe=463) BASOPHILS ABSOLUTE COUNT (BEAKER) (test 0.07 K/ L 0.01-0.08 kqjw=854) IMMATURE GRANULOCYTES-RELATIVE PERCENT (BEAKER) 1 % 0-1 (test vmvn=6010)
--- OUTSIDE RECORDS SUMMARY | 2018-09-05 18:00 | XMS REPORT | Clinical Summary ---
:1940 Author Organization [facility] Address [address] [place] [address] Care Team Providers Name Role Phone Unavailable Primary Care Provider Unavailable Allergies No Known Allergies Medications Medication Sig Dispensed Refills Start Date End Date Status metaproterenol Take 10 mg 0 Active (ALUPENT) 10 MG by mouth 3 tablet (three) times daily. amLODIPine (NORVASC) Take 10 mg 0 Active 10 MG tablet by mouth daily. losartan (COZAAR) 100 Take 100 mg 0 Active MG tablet by mouth daily. omeprazole (PRILOSEC) Take 40 mg 0 Active 40 MG capsule by mouth daily. promethazine Take 25 mg 0 Active (PHENERGAN) 25 MG by mouth tablet every 6 (six) hours as needed for Nausea. ibuprofen Take 200 mg 0 Active (ADVIL,MOTRIN) 200 MG by mouth tablet every 6 (six) hours as needed for Pain. atorvastatin Take 1 30 tablet 11 08/20/2018 08/20/2019 Active (LIPITOR) 40 MG tablet (40 tablet mg total) by mouth nightly. apixaban (ELIQUIS) Take 1 60 tablet 0 08/20/2018 09/19/2018 Active 2.5 mg Tab tablet tablet (2.5 mg total) by mouth 2 (two) times daily for 30 days. carvedilol (COREG) Take 1 60 tablet 11 08/20/2018 08/20/2019 Active 3.125 MG tablet tablet (3.125 mg total) by mouth 2 (two) times daily. metoprolol Take 25 mg 0 08/20/2018 Discontinued (LOPRESSOR) 25 MG by mouth 2 tablet (two) times daily. Active Problems Problem Noted Date Stroke (cerebrum) 08/16/2018 Encounters Date Type Specialty Care Team Description 08/16/2018 - Hospital Encounter General Internal Sandra, Umar, Cerebrovascular accident (CVA), unspecified mechanism (HCC); 08/20/2018 Medicine Dialysis encephalopathy; Sara, Cerebrovascular accident (CVA) due to embolism of right middle cerebral artery (HCC) Vanessa Fang MD after 09/04/2017 Social History Tobacco Use Types Packs/Day Years Used Date Never Assessed Sex Assigned at Date Recorded Not on file Job Start Date Occupation Industry Not on file Not on file Not on file Travel History Travel Start Travel End No recent travel history available. Last Filed Vital Signs Vital Sign Reading Time Taken Blood Pressure 105/51 08/20/2018 2:26 PM CDT Pulse 72 08/20/2018 2:26 PM CDT Temperature 36.2 C (97.1 F) 08/20/2018 2:26 PM CDT Respiratory Rate 18 08/20/2018 2:26 PM CDT Oxygen Saturation 95% 08/20/2018 2:26 PM CDT Inhaled Oxygen Concentration - - Weight 58 kg (127 lb 13.9 oz) 08/19/2018 1:40 PM CDT Height 149.9 cm (4' 11") 08/16/2018 8:00 PM CDT Body Mass Index 25.83 08/19/2018 1:40 PM CDT Plan of Treatment Not on file Procedures Procedure Name Priority Date/Time Associated Comments Diagnosis REPORT OF PROCEDURE - 08/22/2018 10:51 ENDOSCOPY SCAN AM CDT RHYTHM STRIP - SCAN 08/22/2018 10:51 AM CDT CBC (HEMOGRAM ONLY) Routine 08/20/2018 5:28 Results for this AM CDT procedure are in the results section. CBC W/PLT COUNT & AUTO Routine 08/19/2018 5:39 Results for this DIFFERENTIAL AM CDT procedure are in the results section. CBC (HEMOGRAM ONLY) Routine 08/19/2018 5:39 Results for this AM CDT procedure are in the results section. CBC W/PLT COUNT & AUTO Routine 08/19/2018 5:39 Results for this DIFFERENTIAL AM CDT procedure are in the results section. PHOSPHORUS Routine 08/19/2018 5:39 Results for this AM CDT procedure are in the results section. MAGNESIUM Routine 08/19/2018 5:39 Results for this AM CDT procedure are in the results section. COMPREHENSIVE Routine 08/19/2018 5:39 Results for this METABOLIC PANEL AM CDT procedure are in the results section. CALCIUM, IONIZED Routine 08/19/2018 5:39 Results for this AM CDT procedure are in the results section. PROTHROMBIN TIME/INR Routine 08/18/2018 11:16 Results for this AM CDT procedure are in the results section. APTT Routine 08/18/2018 11:16 Results for this AM CDT procedure are in the results section. PLATELET COUNT Routine 08/18/2018 11:16 Results for this AM CDT procedure are in the results section. VITAMIN B12 AND FOLATE Routine 08/18/2018 3:28 Results for this AM CDT procedure are in the results section. TSH/FREE T4 IF Routine 08/18/2018 3:28 Results for this INDICATED AM CDT procedure are in the results section. HEPATITIS B PANEL Routine 08/17/2018 10:07 Results for this PM CDT procedure are in the results section. HEMODIALYSIS INPATIENT Routine 08/17/2018 9:36 PM CDT MR BRAIN WITHOUT IV Routine 08/17/2018 5:38 Results for this CONTRAST PM CDT procedure are in the results section. MAGNESIUM Routine 08/17/2018 2:24 Results for this PM CDT procedure are in the results section. PHOSPHORUS Routine 08/17/2018 2:24 Results for this PM CDT procedure are in the results section. CALCIUM, IONIZED Routine 08/17/2018 2:24 Results for this PM CDT procedure are in the results section. BASIC METABOLIC PANEL Routine 08/17/2018 2:24 Results for this (7) PM CDT procedure are in the results section. LIPID PANEL Routine 08/17/2018 4:13 Results for this AM CDT procedure are in the results section. TROPONIN I Routine 08/17/2018 12:01 Results for this AM CDT procedure are in the results section. CBC W/PLT COUNT & AUTO Routine 08/16/2018 4:19 Results for this DIFFERENTIAL PM CDT procedure are in the results section. PREALBUMIN Routine 08/16/2018 4:19 Results for this PM CDT procedure are in the results section. RPR Routine 08/16/2018 4:19 Results for this PM CDT procedure are in the results section. HEPATIC FUNCTION PANEL Routine 08/16/2018 4:19 Results for this PM CDT procedure are in the results section. HEMOGLOBIN A1C AP Routine 08/16/2018 4:19 Results for this PM CDT procedure are in the results section. HOMOCYSTEINE Routine 08/16/2018 4:19 Results for this PM CDT procedure are in the results section. TROPONIN I Routine 08/16/2018 4:19 Results for this PM CDT procedure are in the results section. CBC W/PLT COUNT & AUTO Routine 08/16/2018 4:19 Results for this DIFFERENTIAL PM CDT procedure are in the results section. BASIC METABOLIC PANEL Routine 08/16/2018 4:19 Results for this (7) PM CDT procedure are in the results section. after 09/04/2017 Results EKG-SCANNED (08/22/2018 10:51 AM CDT) Narrative Performed At RHYTHM STRIP - SCAN (08/22/2018 10:51 AM CDT) Narrative Performed At CBC (hemogram only) (08/20/2018 5:28 AM CDT)Only the most recent of2 resultswithin the time period is included. WBC 10.4 3.5 - 10.5 K/L [facility] RBC 4.15 3.93 - 5.22 M/L [facility] Hemoglobin 11.8 11.2 - 15.7 GM/DL [facility] Hematocrit 39.9 34.1 - 44.9 % [facility] MCV 96.1 (H) 79.4 - 94.8 fL [facility] MCH 28.4 25.6 - 32.2 pg [facility] MCHC 29.6 (L) 32.2 - 35.5 GM/DL [facility] RDW 16.2 (H) 11.7 - 14.4 % [facility] Platelets 347 150 - 450 K/CU MM [facility] MPV 9.9 9.4 - 12.3 fL [facility] nRBC 0 0 - 0 /100 WBC [facility] Specimen Blood Performing Organization Address City/State/Zipcode Phone Number [facility] [address] [place] [address] CENTER Calcium, Ionized (08/19/2018 5:39 AM CDT)Only the most recent of2 resultswithin the time period is included. Calcium, Ion 1.00 (L) 1.12 - 1.27 mmol/L [facility] pH, Blood 7.41 [facility] Specimen Blood Performing Organization Address City/State/Zipcode Phone Number [facility] [address] [place] [address] [phone] CENTER CBC with platelet count + automated diff (08/19/2018 5:39 AM CDT)Only the most recent of2 resultswithin the time period is included. WBC 10.8 (H) 3.5 - 10.5 K/L [facility] RBC 3.53 (L) 3.93 - 5.22 M/L [facility] Hemoglobin 10.0 (L) 11.2 - 15.7 GM/DL [facility] Hematocrit 33.8 (L) 34.1 - 44.9 % [facility] MCV 95.8 (H) 79.4 - 94.8 fL [facility] MCH 28.3 25.6 - 32.2 pg [facility] MCHC 29.6 (L) 32.2 - 35.5 GM/DL [facility] RDW 16.3 (H) 11.7 - 14.4 % [facility] Platelets 338 150 - 450 K/CU MM [facility] MPV 9.7 9.4 - 12.3 fL [facility] nRBC 0 0 - 0 /100 WBC [facility] % Neutros 78 % [facility] % Lymphs 11 % [facility] % Monos 9 % [facility] % Eos 1 % [facility] % Baso 1 % [facility] # Neutros 8.36 (H) 1.56 - 6.13 K/L [facility] # Lymphs 1.22 1.18 - 3.74 K/L [facility] # Monos 0.94 (H) 0.24 - 0.36 K/L [facility] # Eos 0.10 0.04 - 0.36 K/L [facility] # Baso 0.08 0.01 - 0.08 K/L [facility] Immature Granulocytes-Relative 1 0 - 1 % [facility] Specimen Blood Performing Organization Address City/State/Zipcode Phone Number [address] [address] CENTER Phosphorus (08/19/2018 5:39 AM CDT)Only the most recent of2 resultswithin the time period is included. Phosphorus 3.7 2.3 - 4.7 mg/dL [facility] Specimen Blood Performing Organization Address City/[facility] Phone Number [address] [address] CENTER Magnesium (08/19/2018 5:39 AM CDT)Only the most recent of2 resultswithin the time period is included. Magnesium 2.1 1.6 - 2.6 mg/dL [facility] Specimen Blood Performing Organization Address City/[facility]/Zipcode Phone Number [address] [address] CENTER Comprehensive metabolic panel (08/19/2018 5:39 AM CDT) Protein, Total 8.0 6.0 - 8.3 gm/dL [facility] Albumin 3.4 (L) 3.5 - 5.0 g/dL [facility] Alkaline Phosphatase 130 40 - 150 U/L [facility] Total Bilirubin 0.5 0.2 - 1.2 mg/dL [facility] Sodium 137 136 - 145 meq/L [facility] Potassium 3.9 3.5 - 5.1 meq/L [facility] Chloride 98 98 - 107 meq/L [facility] CO2 27 22 - 29 meq/L [facility] BUN 26 (H) 7 - 21 mg/dL [facility] Creatinine 3.67 (H) 0.57 - 1.25 mg/dL [facility] Glucose 182 (H) 70 - 105 mg/dL [facility] Calcium 9.0 8.4 - 10.2 mg/dL [facility] AST 28 5 - 34 U/L [facility] ALT 50 6 - 55 U/L [facility] EGFR 12Comment: ESTIMATED GFR mL/min/1.73 sq m [facility] IS NOT ACCURATE [facility] CREATININE CLEARANCE IN PREDICTING GLOMERULAR FILTRATION RATE. ESTIMATED GFR IS NOT APPLICABLE FOR DIALYSIS PATIENTS. Specimen Blood Performing Organization Address City/[facility]/Zipcode Phone Number [address] [address] CENTER aPTT (08/18/2018 11:16 AM CDT) PTT 37.1 (H) 22.5 - 36.0 seconds [facility] Specimen Blood Narrative Performed At Prior to initiating heparin [facility] Performing Organization Address City/[facility] Phone Number [address] [address] [phone] CENTER Prothrombin time/INR (08/18/2018 11:16 AM CDT) Protime 15.1 (H) 11.7 - 14.7 seconds [facility] INR 1.3 <=5.9 [facility] Specimen Blood Narrative Performed At RECOMMENDED COUMADIN/WARFARIN INR THERAPY [facility] RANGES STANDARD DOSE: 2.0 - 3.0 Includes: PROPHYLAXIS for venous thrombosis, systemic embolization; TREATMENT for venous thrombosis and/or pulmonary embolus. HIGH RISK: Target INR is 2.5-3.5 for patients with mechanical heart valves. Prior to initiating heparin Performing Organization Address City/[facility] Phone Number [address] [address] [phone] CENTER Platelet count (08/18/2018 11:16 AM CDT) Platelets 353 150 - 450 K/CU MM [facility] Specimen Blood Performing Organization Address [facility] Phone Number [address] [address] CENTER Vitamin B12 and Folate (08/18/2018 3:28 AM CDT) Vitamin B12 941 (H) 213 - 816 pg/mL [facility] Folate 7.1 >=7.0 ng/mL [facility] Specimen Blood Performing Organization Address [facility] Phone Number [address] [address] CENTER TSH/Free T4 If Indicated (08/18/2018 3:28 AM CDT) TSH 1.35 0.35 - 4.94 uIU/mL [facility] Specimen Blood Performing Organization Address [facility] Phone Number [address] [address] CENTER Hepatitis B Panel (08/17/2018 10:07 PM CDT) Hep B Core Total Ab NON-REACTIVE Nonreactive [facility] Hep B S Ab 193.7 (H) <8.0 mIU/mL [facility] hepatitis B Surface Ag NON-REACTIVE Nonreactive [facility] Specimen Blood Performing Organization Address City/State/Zipcode Phone Number [facility] [address] [place] [address] CENTER MR brain without IV contrast (08/17/2018 5:38 PM CDT) Specimen Narrative Performed At FINAL REPORT [facility] MR, BRAIN, WITHOUT CONTRAST INDICATION: Stroke Stroke TECHNIQUE: Multiplanar, multisequence MR imaging of the brain was obtained. COMPARISON: None FINDINGS: Restricted diffusion with concomitant decreased signal on ADC and FLAIR hyperintensity corresponding to the right ROUTE RELIEF DRIVER distribution, with some MCA contribution more cranially, compatible with acute ischemic insult. No evidence of hemorrhagic transformation. Brain parenchyma is otherwise normal in morphology. Midline structures are normally developed. Scattered T2/FLAIR hyperintense foci within the periventricular and subcortical [...] hemangioma. IMPRESSION: Acute stroke involving the right ROUTE RELIEF DRIVER and MCA distribution. Upon review of the electronic medical record, clinical team is aware at this time and findings on MRI corresponding to findings on outside institution CT August 16, 2018. Signed: Lizzette Mendes MD Report Verified Date/Time:08/17/2018 17:17:49 Reading Location: [facility] [id number] Neuro Reading Room Procedure Note Interface, External Ris In - 08/17/2018 5:40 PM CDT FINAL REPORT MR, BRAIN, WITHOUT CONTRAST INDICATION: Stroke Stroke TECHNIQUE: Multiplanar, multisequence MR imaging of the brain was obtained. COMPARISON: None FINDINGS: Restricted diffusion with concomitant decreased signal on ADC and FLAIR hyperintensity corresponding to the right ROUTE RELIEF DRIVER distribution, with some MCA contribution more cranially, compatible with acute ischemic insult. No evidence of hemorrhagic transformation. Brain parenchyma is otherwise normal in morphology. Midline structures are normally developed. Scattered T2/FLAIR hyperintense foci within the periventricular and subcortical [...] hemangioma. IMPRESSION: Acute stroke involving the right ROUTE RELIEF DRIVER and MCA distribution. Upon review of the electronic medical record, clinical team is aware at this time and findings on MRI corresponding to findings on outside institution CT August 16, 2018. Signed: Lizzette Mendes MD Report Verified Date/Time: 08/17/2018 17:17:49 Reading Location: [address] Neuro Reading Room Performing Organization Address City/State/Zipcode Phone Number [email or web address] Basic Metabolic Panel (08/17/2018 2:24 PM CDT)Only the most recent of2 resultswithin the time period is included. Sodium 136 136 - 145 meq/L [facility] Potassium 5.6 (H) 3.5 - 5.1 meq/L [facility] Chloride 105 98 - 107 meq/L [facility] CO2 19 (L) 22 - 29 meq/L [facility] BUN 24 (H) 7 - 21 mg/dL [facility] Creatinine 3.37 (H) 0.57 - 1.25 mg/dL [facility] Glucose 178 (H) 70 - 105 mg/dL [facility] Calcium 8.5 8.4 - 10.2 mg/dL [facility] EGFR 13Comment: ESTIMATED GFR IS mL/min/1.73 sq m [facility] NOT ACCURATE [facility] CLEARANCE IN PREDICTING GLOMERULAR FILTRATION RATE. ESTIMATED GFR IS NOT APPLICABLE FOR DIALYSIS PATIENTS. Specimen Blood Performing Organization Address [facility]/Zipcode Phone Number [address] [address] [place] Fasting lipid panel (08/17/2018 4:13 AM CDT) Triglycerides 124 mg/dL [facility] Cholesterol 84 mg/dL [facility] HDL 36 mg/dL [facility] LDL Calculated 23 mg/dL [facility] Specimen Blood Narrative Performed At Triglyceride Reference Range: [facility] Low Risk <150 [id number] High Risk 200-499 Very High Risk>=500 Cholesterol Reference Range: Low Risk <200 [id number] High Risk>240 HDL Cholesterol Reference Range: Low Risk >=60 High Risk <40 LDL Cholesterol Reference Range: Optimal<100 Near [id number] Very High >=190 Fasting Performing Organization Address [facility] Phone Number [address] [address] [phone] [place] Troponin I (08/17/2018 12:01 AM CDT)Only the most recent of2 resultswithin the time period is included. Troponin I 0.05 (H) 0.00 - 0.03 ng/mL [facility] Specimen Blood Narrative Performed At Troponin I (TnI) levels must be interpreted [facility] in the context of the presenting symptoms and the clinical findings. Elevated TnI levels indicate myocardial damage, but are not specific for ischemic heart disease. Elevated TnI levels are seen in patients with other cardiac conditions (including myocarditis and congestive heart failure), and slight TnI elevations occur in patients with other conditions, including sepsis, renal failure, acidosis, acute neurological disease, and persistent tachyarrhythmia. Performing Organization Address [facility]/Zipcode Phone Number [address] [address] [phone] [place] RPR (08/16/2018 4:19 PM CDT) RPR Nonreactive Nonreactive [facility] Specimen Blood Performing Organization Address City/[facility]/Zipcode Phone Number [address] [phone] [place] Prealbumin (08/16/2018 4:19 PM CDT) Prealbumin 17 14 - 45 mg/dL [facility] Specimen Blood Performing Organization Address City/[facility] Phone Number [address] [address] [place] Homocysteine (08/16/2018 4:19 PM CDT) Homocysteine 21.2 (H) 5.1 - 15.4 umol/L [facility] Specimen Blood Performing Organization Address [facility] Phone Number [address] [address] [place] Hemoglobin A1c (08/16/2018 4:19 PM CDT) Hemoglobin A1C 9.0 (H) 4.3 - 6.1 % [facility] Specimen Blood Performing Organization Address [facility] Phone Number [address] [address] [phone] [place] Hepatic function panel (08/16/2018 4:19 PM CDT) Protein, Total 7.0 6.0 - 8.3 gm/dL [facility] Albumin 3.0 (L) 3.5 - 5.0 g/dL [facility] Total Bilirubin 0.3 0.2 - 1.2 mg/dL [facility] Bilirubin, Direct 0.2 0.1 - 0.5 mg/dL [facility] Alkaline Phosphatase 71 40 - 150 U/L [facility] AST 11 5 - 34 U/L [facility] ALT 8 6 - 55 U/L [facility] Specimen Blood Performing Organization Address City/State/Zipcode Phone Number [facility] [address] [place] [address] CENTER after 09/04/2017 Insurance Payer Benefit Plan / Group Subscriber ID Type Phone Address MEDICARE MEDICARE PART B xxxxxxxxxx Medicare Advance Directives For more information, please contact:[facility] [place], [place] [phone] Code Status Date Activated Date Inactivated Comments Full Code 08/16/2018 3:43 PM 08/20/2018 10:43 PM This code status was determined by: Patient
[2018-09-05 19:02] LABS: Absolute Lymphocytes (CBC) 1.3 K/uL (0.7-4.9); Absolute Monocytes 0.8 K/uL (0.1-1.3); Absolute Neutrophil 6.1 K/uL (1.8-8.0); Basophils % 2.5 % (0-1.3); Eosinophils % 1.8 % (0-4.4); Hematocrit 35.6 % (36.0-45.0); Lymphocytes % 14.8 % (15.3-44.8); MPV 8.4 fL (7.6-11.3); Monocytes % 9.3 % (3.3-12.3); RBC Red Blood Cell Count 3.99 M/uL (3.86-4.86)
[2018-09-05 19:20] LABS: Albumin 2.6 g/dL (3.4-5.0); Bilirubin Direct 0.2 mg/dL (0-0.2); Bilirubin Total 0.4 mg/dL (0.2-1.0); Potassium 3.8 mmol/L (3.5-5.1); Protein, Total 7.9 g/dL (6.4-8.2)
--- NOTE | 2018-09-05 19:27 | RAD REPORT ---
EXAM DESCRIPTION: CT - Abdomen Pelvis Wo Contrast - 09/05/2018 6:58 pm CLINICAL HISTORY: Abdominal pain vomiting and diarrhea COMPARISON: December 2016 TECHNIQUE: Computed axial tomography of the abdomen and pelvis was obtained. IV and oral contrast we re not requested. All CT scans are performed using dose optimization technique as appropriate and may include automated exposure control or mA/KV adjustment according to patient size. FINDINGS: The evaluation of solid organs, vessels and bowel is limited secondary to the lack of con trast administration. Cardiomegaly. Small left pleural effusion The liver, spleen, pancreas, adrenals and kidneys appear grossly normal. The wall of most of the colon is mildly thickened. . There is no evidence of diverticulitis. Vascular calcifications noted. Gallbladder and uterus have been removed. Normal appendix A compression fractures involve thoracic and lumbar spine which probably are Spondylosis involves lumbar spine resulting in spinal stenosis IMPRESSION: Wall of most of the colon mildly thickened probably indicating a colitis
--- NOTE | 2018-09-05 20:51 | ER ---
Nurse's Notes [facility] Name: Beti Sanchez Age: 77 yrs Sex: Female : 1940 Arrival Date: 09/05/2018 Time: 17:59 Bed 17 Private MD: Diagnosis: Colitis;Diarrhea, unspecified Presentation: 09/05 18:02 Presenting complaint: Patient states: abd pain, N/V/D x "a few days". Pt was recently ss admitted for same symptoms at [facility] and discharged home with inconclusive testing. EMS reports that APS was at patient's home with concern that patient has not been taken to her dialysis appointments. Family told EMS that she in fact has been going to her appointments other than when she was in the hospital recently. Transition of care: patient was not received from another setting of care. Onset of symptoms is unknown. Risk Assessment: Do you want to hurt yourself or someone else? Patient reports no desire to harm self or others. Initial Sepsis Screen: Does the patient meet any 2 criteria? No. Patient's initial sepsis screen is negative. Does the patient have a suspected source of infection? No. Patient's initial sepsis screen is negative. Care prior to arrival: None. 18:02 Method Of Arrival: Ambulatory ss 18:02 Acuity: KEANU 3 ss Triage Assessment: 18:05 General: Appears in no apparent distress. comfortable, Behavior is cooperative, bp anxious. Pain: Complains of pain in abdomen. EENT: No deficits noted. Neuro: Level of Consciousness is awake, alert, obeys commands. Cardiovascular: No deficits noted. Respiratory: Airway is patent Respiratory effort is even, unlabored, Respiratory pattern is regular, symmetrical. GI: Abdomen is non-distended, Reports diarrhea, nausea, vomiting. : No signs and/or symptoms were reported regarding the genitourinary system. Derm: No deficits noted. Musculoskeletal: Circulation, motion, and sensation intact. Range of motion: intact in all extremities. Historical: - Allergies: 18:08 No Known Allergies; ss - Home Meds: 19:30 omeprazole 40 mg Oral cpDR 1 cap once daily [Active]; carvedilol 3.125 mg oral tab 1 cc3 tab 2 times per day [Active]; ropinirole 0.25 mg oral tab 1 tab 3 times per day [Active]; amlodipine 10 mg tab 1 tab once daily [Active]; Eliquis 2.5 mg oral tab 1 tab 2 times per day [Active]; atorvastatin 40 mg oral tab 1 tab once daily [Active]; losartan 100 mg oral tab 1 tab once daily [Active]; Lantus 10 units SQ at bedtime Sub-Q [Active]; promethazine 25 mg Oral tab 1 tab every 4-6 hours for as needed [Active]; Bumex Oral 4 mg daily [Active]; clonidine HCl 0.1 mg Oral tab 1 tab once daily [Active]; Lantus 100 unit/mL Sub-Q soln 15 units daily [Active]; metaxalone 400 mg Oral tab daily [Active]; omeprazole 40 mg Oral cpDR 1 cap once daily [Active]; Phenergan Oral 25 mg daily [Active]; PhosLo 667 mg Oral cap 2 caps 3 times per day [Active]; ropinirole 0.25 mg Oral tab 1 tab every 6 hours PRN [Active]; - PMHx: 18:08 Diabetes - NIDDM; ESRD; Dialysis; ss - PSHx: 18:08 HD left arm access; ss - Immunization history:: Adult Immunizations unknown. - Social history:: Smoking status: Patient/guardian denies using tobacco. - Ebola Screening: : Patient denies exposure to infectious person Patient denies travel to an Ebola-affected area in the 21 days before illness onset. Screenin:17 Abuse screen: Denies threats or abuse. Denies injuries from another. Nutritional bp screening: No deficits noted. Tuberculosis screening: No symptoms or risk factors identified. Fall Risk None identified. Assessment: 18:10 General: SEE TRIAGE NOTE. bp 19:15 Reassessment: Patient appears in no apparent distress at this time. Patient and/or cc3 family updated on plan of care and expected duration. Pain level reassessed. Patient is alert, oriented x 3, equal unlabored respirations, skin warm/dry/pink. Received this female patient from morning shift [facility] as a case of abdominal pain and diarrhea just came back from CT scan department, awaiting result. With IV cannula gauge 22 at the right ACV saline locked. On hemodialysis every Sunday, Sunday and Sunday with HD access at the left arm. 19:28 Reassessment: Patient appears in no apparent distress at this time. Patient and/or cc3 family updated on plan of care and expected duration. Pain level reassessed. Patient is alert, oriented x 3, equal unlabored respirations, skin warm/dry/pink. Laboratory staff named Joie Zarate called and relayed critical lab result of creatinine 5.95, SONA Turner informed. 19:30 GI: Bowel sounds present X 4 quads. Abd is soft and non tender X 4 quads. cc3 20:25 Reassessment: Patient appears in no apparent distress at this time. Patient and/or cc3 family updated on plan of care and expected duration. Pain level reassessed. Patient is alert, oriented x 3, equal unlabored respirations, skin warm/dry/pink. 21:35 Reassessment: Patient appears in no apparent distress at this time. Patient and/or cc3 family updated on plan of care and expected duration. Pain level reassessed. Patient is alert, oriented x 3, equal unlabored respirations, skin warm/dry/pink. SONA Turner discharged the patient home with prescription given. IV cannula removed and patient left ER vitally stable by wheelchair escorted by [facility] and the patient's son. Patient denies pain at this time. Patient states feeling better. Patient states symptoms have improved. Vital Signs: 18:08 BP 165 / 61; Pulse 75; Resp 16; Temp 98.4(TE); Pulse Ox 99% on R/A; Pain 10/10; ss 19:20 BP 167 / 81; Pulse 75; Resp 18 S; Temp 98.5(O); Pulse Ox 97% on R/A; cc3 20:45 BP 116 / 64; Pulse 69; Resp 16 S; Temp 98.1(O); Pulse Ox 97% on R/A; cc3 21:15 BP 155 / 67; Pulse 68; Resp 17 S; Temp 98.1(O); Pulse Ox 97% on R/A; cc3 ED Course: 17:59 Patient arrived in ED. bp 18:07 Triage completed. ss 18:08 Arm band placed on right wrist. ss 18:14 Sebastien Crawford, RN is Primary Nurse. bp 18:17 Patient has correct armband on for positive identification. Bed in low position. Call bp light in reach. Side rails up X2. Adult w/ patient. 18:29 Ant Turner NP is PHCP. pm1 18:29 Ahsan Mathews MD is Attending Physician. pm1 18:43 Patient moved to AR. vm2 18:50 Inserted saline lock: 22 gauge in right antecubital area, using aseptic technique. bp Blood collected. 18:56 CT completed. Patient tolerated procedure well. Patient moved back from AR. nv 18:59 CT Abd/Pelvis - Without Cont In Process Unspecified. EDMS 21:35 No provider procedures requiring assistance completed. IV discontinued, intact, cc3 bleeding controlled, No redness/swelling at site. Pressure dressing applied. Administered Medications: 21:20 Drug: Cipro 500 mg Route: PO; cc3 21:35 Follow up: Response: No adverse reaction cc3 21:20 Drug: Flagyl 500 mg Route: PO; cc3 21:35 Follow up: Response: No adverse reaction cc3 Outcome: 20:50 Discharge ordered by . pm1 21:35 Patient left the ED. cc3 21:35 Discharged to home via wheelchair, with family. cc3 21:35 Condition: stable 21:35 Discharge instructions given to patient, family, Instructed on discharge instructions, follow up and referral plans. medication usage, Demonstrated understanding of instructions, follow-up care, medications, Prescriptions given X 2. Signatures: Dispatcher [employer] EDMN Ansley Chao, Ant Motta RN, NP PROMOTIONS MANAGER pm1 Benson Gonzalez Victoria 2 Sebastien Crawford RN RN bp Cordel, Charlene cc3
--- NOTE | 2018-09-05 20:51 | EDPHYS ---
Physician Documentation [facility] Name: Beti Sancehz Age: 77 yrs Sex: Female : 1940 Arrival Date: 09/05/2018 Time: 17:59 Bed 17 Private MD: ED Physician Ahsan Mathews HPI: 09/05 19:33 This 77 yrs old Female presents to ER via Ambulatory with complaints of pm1 Abdominal Pain, Diarrhea. 19:33 The patient presents with abdominal pain that is diffuse. Onset: The symptoms/episode pm1 began/occurred last week. The symptoms do not radiate. Associated signs and symptoms: Pertinent positives: diarrhea, Pertinent negatives: fever, vomiting. The symptoms are described as crampy. Modifying factors: The symptoms are alleviated by nothing, the symptoms are aggravated by nothing. Severity of pain: in the emergency department the pain has resolved. Patient admitted last week for the same complaint at [facility] and was discharged home. After being discharged she went to [facility] with the same complaint and was discharged home. Presenting today with complaints of diarrhea. Abdominal pain has resolved. Historical: - Allergies: 18:08 No Known Allergies; ss - Home Meds: 19:30 omeprazole 40 mg Oral cpDR 1 cap once daily [Active]; carvedilol 3.125 mg oral tab 1 cc3 tab 2 times per day [Active]; ropinirole 0.25 mg oral tab 1 tab 3 times per day [Active]; amlodipine 10 mg tab 1 tab once daily [Active]; Eliquis 2.5 mg oral tab 1 tab 2 times per day [Active]; atorvastatin 40 mg oral tab 1 tab once daily [Active]; losartan 100 mg oral tab 1 tab once daily [Active]; Lantus 10 units SQ at bedtime Sub-Q [Active]; promethazine 25 mg Oral tab 1 tab every 4-6 hours for as needed [Active]; Bumex Oral 4 mg daily [Active]; clonidine HCl 0.1 mg Oral tab 1 tab once daily [Active]; Lantus 100 unit/mL Sub-Q soln 15 units daily [Active]; metaxalone 400 mg Oral tab daily [Active]; omeprazole 40 mg Oral cpDR 1 cap once daily [Active]; Phenergan Oral 25 mg daily [Active]; PhosLo 667 mg Oral cap 2 caps 3 times per day [Active]; ropinirole 0.25 mg Oral tab 1 tab every 6 hours PRN [Active]; - PMHx: 18:08 Diabetes - NIDDM; ESRD; Dialysis; ss - PSHx: 18:08 HD left arm access; ss - Immunization history:: Adult Immunizations unknown. - Social history:: Smoking status: Patient/guardian denies using tobacco. - Ebola Screening: : Patient denies exposure to infectious person Patient denies travel to an Ebola-affected area in the 21 days before illness onset. ROS: 19:33 Constitutional: Negative for fever, chills, and weight loss, Eyes: Negative for injury, pm1 pain, redness, and discharge, ENT: Negative for injury, pain, and discharge, Neck: Negative for injury, pain, and swelling, Cardiovascular: Negative for chest pain, palpitations, and edema, Respiratory: Negative for shortness of breath, cough, wheezing, and pleuritic chest pain. 19:33 Back: Negative for injury and pain, : Negative for injury, bleeding, discharge, and swelling, MS/Extremity: Negative for injury and deformity, Skin: Negative for injury, rash, and discoloration, Neuro: Negative for headache, weakness, numbness, tingling, and seizure. 19:33 Abdomen/GI: Positive for abdominal pain, diarrhea, Negative for nausea and vomiting. Exam: 19:33 Constitutional: This is a well developed, well nourished patient who is awake, alert, pm1 and in no acute distress. Head/Face: Normocephalic, atraumatic. Eyes: Pupils equal round and reactive to light, extra-ocular motions intact. Lids and lashes normal. Conjunctiva and sclera are non-icteric and not injected. Cornea within normal limits. Periorbital areas with no swelling, redness, or edema. ENT: Nares patent. No nasal discharge, no septal abnormalities noted. Tympanic membranes are normal and external auditory canals are clear. Oropharynx with no redness, swelling, or masses, exudates, or evidence of obstruction, uvula midline. Mucous membranes moist. Neck: Trachea midline, no thyromegaly or masses palpated, and no cervical lymphadenopathy. Supple, full range of motion without nuchal rigidity, or vertebral point tenderness. No Meningismus. Chest/axilla: Normal chest wall appearance and motion. Nontender with no deformity. No lesions are appreciated. Cardiovascular: Regular rate and rhythm with a normal S1 and S2. No gallops, murmurs, or rubs. Normal PMI, no JVD. No pulse deficits. Respiratory: Lungs have equal breath sounds bilaterally, clear to auscultation and percussion. No rales, rhonchi or wheezes noted. No increased work of breathing, no retractions or nasal flaring. Abdomen/GI: Soft, non-tender, with normal bowel sounds. No distension or tympany. No guarding or rebound. No evidence of tenderness throughout. Back: No spinal tenderness. No costovertebral tenderness. Full range of motion. Skin: Warm, dry with normal turgor. Normal color with no rashes, no lesions, and no evidence of cellulitis. MS/ Extremity: Pulses equal, no cyanosis. Neurovascular intact. Full, normal range of motion. 19:33 Neuro: Orientation: is normal, Motor: moves all fours. Vital Signs: 18:08 BP 165 / 61; Pulse 75; Resp 16; Temp 98.4(TE); Pulse Ox 99% on R/A; Pain 10/10; ss 19:20 BP 167 / 81; Pulse 75; Resp 18 S; Temp 98.5(O); Pulse Ox 97% on R/A; cc3 20:45 BP 116 / 64; Pulse 69; Resp 16 S; Temp 98.1(O); Pulse Ox 97% on R/A; cc3 21:15 BP 155 / 67; Pulse 68; Resp 17 S; Temp 98.1(O); Pulse Ox 97% on R/A; cc3 MDM: 18:29 Patient medically screened. pm1 20:49 Data reviewed: vital signs. Data interpreted: Pulse oximetry: on room air is 97 %. pm1 Interpretation: normal. Counseling: I had a detailed discussion with the patient and/or guardian regarding: the historical points, exam findings, and any diagnostic results supporting the discharge/admit diagnosis, lab results, radiology results, the need for outpatient follow up, to return to the emergency department if symptoms worsen or persist or if there are any questions or concerns that arise at home. 09/05 18:37 Order name: CBC with Diff; Complete Time: 19:33 pm1 09/05 18:37 Order name: BMP; Complete Time: 19:33 pm1 09/05 18:38 Order name: Hepatic Function; Complete Time: 19:33 pm1 09/05 18:38 Order name: Lipase; Complete Time: 19:33 pm1 09/05 18:38 Order name: CT Abd/Pelvis - Without Cont; Complete Time: 19:33 pm1 09/05 18:37 Order name: IV Saline Lock; Complete Time: 19:40 pm1 09/05 18:38 Order name: Labs collected and sent; Complete Time: 19:40 pm1 Administered Medications: 21:20 Drug: Cipro 500 mg Route: PO; cc3 21:35 Follow up: Response: No adverse reaction cc3 21:20 Drug: Flagyl 500 mg Route: PO; cc3 21:35 Follow up: Response: No adverse reaction cc3 Disposition: 09/06 09:01 Co-signature as Attending Physician, Ahsan Mathews MD I agree with the assessment and kdr plan of care. Disposition: 09/05/18 20:50 Discharged to Home. Impression: Colitis, Diarrhea, unspecified. - Condition is Stable. - Discharge Instructions: Food Choices to Help Relieve Diarrhea, Adult, Diarrhea, Adult, Colitis. - Prescriptions for Cipro 250 mg Oral Tablet - take 1 tablet by ORAL route every 12 hours for 10 days; 20 tablet. Flagyl 500 mg Oral Tablet - take 1 tablet by ORAL route every 8 hours for 10 days; 30 tablet. - Medication Reconciliation Form, Thank You Letter, Antibiotic Education, Prescription Opioid Use form. - Follow up: Emergency Department; When: As needed; Reason: Worsening of condition. Follow up: Private Physician; When: 2 - 3 days; Reason: Recheck today's complaints, Continuance of care, Re-evaluation by your physician. - Problem is new. - Symptoms have improved. Signatures: Dispatcher [employer] EDMS Ahsan Mathews MD MD [facility] Ansley Chao RN RN Ant Stout, SONA MECHANICAL SOUND TECHNICIAN pm1 Renee Clemente cc3 Corrections: (The following items were deleted from the chart) 09/05 21:35 20:50 09/05/2018 20:50 Discharged to Home. Impression: Colitis; Diarrhea, unspecified. cc3 Condition is Stable. Forms are Medication Reconciliation Form, Thank You Letter, Antibiotic Education, Prescription Opioid Use. Follow up: Emergency Department; When: As needed; Reason: Worsening of condition. Follow up: Private Physician; When: 2 - 3 days; Reason: Recheck today's complaints, Continuance of care, Re-evaluation by your physician. Problem is new. Symptoms have improved. pm1
[2018-09-05] MEDS ORDERED: CIPROFLOXACIN HCL 500 MG TAB ONE (21:31)
[2018-09-05] MEDS ORDERED: metroNIDAZOLE 500 MG TABLET ONE (21:31)
[2018-09-05 22:07] VITALS: O2SAT 97
[2018-09-05 22:08] VITALS: BP 116/64; TEMP 98.1
== END 2018-09-05 21:35 | disposition home or self-care (01) ==
LOC: ER 17:57
DX: K52.9 Noninfective gastroenteritis and colitis, unspecified (principal); E11.22 Type 2 diabetes mellitus with diabetic chronic kidney disease; N18.6 End stage renal disease; Z79.01 Long term (current) use of anticoagulants; Z79.4 Long term (current) use of insulin; Z99.2 Dependence on renal dialysis
CPT/HCPCS: 36415; 74176; 80048; 80076; 83690; 85025; 99284

== ENCOUNTER 2018-09-20 20:47 | Emergency (ER) | payer MEDICARE ==
--- OUTSIDE RECORDS SUMMARY | 2018-09-20 20:49 | XMS REPORT | Clinical Summary ---
:1940 Author Organization [facility] Address [address] [place] [address] Care Team Providers Name Role Phone Unavailable [...] (40 tablet mg total) by mouth nightly. carvedilol (COREG) Take 1 60 tablet 11 08/20/2018 08/20/2019 Active 3.125 MG tablet tablet (3.125 mg total) by mouth 2 (two) times daily. metoprolol Take 25 mg 0 08/20/2018 Discontinued (LOPRESSOR) 25 MG by mouth 2 tablet (two) times daily. apixaban (ELIQUIS) Take 1 60 tablet 0 08/20/2018 09/19/2018 2.5 mg Tab tablet tablet (2.5 mg total) by mouth 2 (two) times daily for 30 days. Active Problems Problem Noted Date Stroke (cerebrum) 08/16/2018 Encounters Date Type Specialty Care Team Description 08/16/2018 - Hospital Encounter General Internal Sandra, Umar, Cerebrovascular accident (CVA), unspecified mechanism (HCC); 08/20/2018 Medicine Dialysis encephalopathy; Sara, Cerebrovascular accident (CVA) due to embolism of right middle cerebral artery (HCC) Vanessa Fang MD after 09/19/2017 Social History Tobacco Use Types Packs/Day Years [...] procedure are in the results section. after 09/19/2017 Results EKG-SCANNED (08/22/2018 10:51 AM CDT) Narrative Performed At RHYTHM STRIP - SCAN (08/22/2018 10:51 AM CDT) Narrative Performed At CBC (hemogram only) (08/20/2018 5:28 AM CDT)Only the most recent of2 resultswithin the time period is included. WBC 10.4 3.5 - 10.5 K/L [facility] RBC 4.15 3.93 - 5.22 M/L [facility] Hemoglobin 11.8 11.2 - 15.7 GM/DL [facility] Hematocrit 39.9 34.1 - 44.9 % [facility] MCV 96.1 (H) 79.4 - 94.8 fL [facility] MCH 28.4 25.6 - 32.2 pg [facility] MCHC 29.6 (L) 32.2 - 35.5 GM/DL [facility] RDW 16.2 (H) 11.7 - 14.4 % [facility] Platelets 347 150 - 450 K/CU MM [facility] MPV 9.9 9.4 - 12.3 fL [facility] nRBC 0 0 - 0 /100 WBC [facility] Specimen Blood Performing Organization Address City/State/Zipcode Phone Number [facility] [address] [place] [address] CENTER Calcium, Ionized (08/19/2018 5:39 AM CDT)Only the most recent of2 resultswithin the time period is included. Calcium, Ion 1.00 (L) 1.12 - 1.27 mmol/L [facility] pH, Blood 7.41 [facility] Specimen Blood Performing Organization Address City/State/Zipcode Phone Number [facility] [address] [place] [address] CENTER CBC with platelet count + automated diff (08/19/2018 5:39 AM CDT)Only the most recent of2 resultswithin the time period is included. WBC 10.8 (H) 3.5 - 10.5 K/L [facility] RBC 3.53 (L) 3.93 - 5.22 M/L [facility] Hemoglobin 10.0 (L) 11.2 - 15.7 GM/DL [facility] Hematocrit 33.8 (L) 34.1 - 44.9 % [facility] MCV 95.8 (H) 79.4 - 94.8 fL [facility] MCH 28.3 25.6 - 32.2 pg [facility] MCHC 29.6 (L) 32.2 - 35.5 GM/DL [facility] RDW 16.3 (H) 11.7 - 14.4 % [facility] Platelets 338 150 - 450 K/CU MM [facility] MPV 9.7 9.4 - 12.3 fL [facility] nRBC 0 0 - 0 /100 WBC [facility] % Neutros 78 % [facility] % Lymphs 11 % [facility] % Monos 9 % [facility] % Eos 1 % [facility] % Baso 1 % [facility] # Neutros 8.36 (H) 1.56 - 6.13 K/L [facility] # Lymphs 1.22 1.18 - 3.74 K/L [facility] # Monos 0.94 (H) 0.24 - 0.36 K/L [facility] # Eos 0.10 0.04 - 0.36 K/L [facility] # Baso 0.08 0.01 - 0.08 K/L [facility] Immature Granulocytes-Relative 1 0 - 1 % [facility] Specimen Blood Performing Organization Address City/State/Zipcode Phone Number [address] [address] [phone] CENTER Phosphorus (08/19/2018 5:39 AM CDT)Only the most recent of2 resultswithin the time period is included. Phosphorus 3.7 2.3 - 4.7 mg/dL [facility] Specimen Blood Performing Organization Address City/[facility] Phone Number [address] [address] [phone] CENTER Magnesium (08/19/2018 5:39 AM CDT)Only the most recent of2 resultswithin the time period is included. Magnesium 2.1 1.6 - 2.6 mg/dL [facility] Specimen Blood Performing Organization Address City/[facility]/Zipcode Phone Number [address] [address] [phone] CENTER Comprehensive metabolic panel (08/19/2018 5:39 AM CDT) Protein, Total 8.0 6.0 - 8.3 gm/dL [facility] Albumin 3.4 (L) 3.5 - 5.0 g/dL [facility] Alkaline Phosphatase 130 40 - 150 U/L [facility] Total Bilirubin 0.5 0.2 - 1.2 mg/dL [facility] Sodium 137 136 - 145 meq/L [facility] Potassium 3.9 3.5 - 5.1 meq/L [facility] Chloride 98 98 - 107 meq/L [facility] CO2 27 22 - 29 meq/L [facility] BUN 26 (H) 7 - 21 mg/dL [facility] Creatinine 3.67 (H) 0.57 - 1.25 mg/dL [facility] Glucose 182 (H) 70 - 105 mg/dL [facility] Calcium 9.0 8.4 - 10.2 mg/dL [facility] AST 28 5 - 34 U/L [facility] ALT 50 6 - 55 U/L [facility] EGFR 12Comment: ESTIMATED GFR mL/min/1.73 sq m [facility] IS NOT ACCURATE [facility] CREATININE CLEARANCE IN PREDICTING GLOMERULAR FILTRATION RATE. ESTIMATED GFR IS NOT APPLICABLE FOR DIALYSIS PATIENTS. Specimen Blood Performing Organization Address City/[facility]/Zipcode Phone Number [address] [address] CENTER aPTT (08/18/2018 11:16 AM CDT) PTT 37.1 (H) 22.5 - 36.0 seconds [facility] Specimen Blood Narrative Performed At Prior to initiating heparin [facility] Performing Organization Address City/[facility] Centercode Phone Number [address] [address] CENTER Prothrombin time/INR (08/18/2018 11:16 AM CDT) Protime 15.1 (H) 11.7 - 14.7 seconds [facility] INR 1.3 <=5.9 [facility] Specimen Blood Narrative Performed At RECOMMENDED COUMADIN/WARFARIN INR THERAPY [facility] RANGES STANDARD DOSE: 2.0 - 3.0 Includes: PROPHYLAXIS for venous thrombosis, systemic embolization; TREATMENT for venous thrombosis and/or pulmonary embolus. HIGH RISK: Target INR is 2.5-3.5 for patients with mechanical heart valves. Prior to initiating heparin Performing Organization Address City/[facility] Cent[facility]ode Phone Number [address] [address] CENTER Platelet count (08/18/2018 11:16 AM CDT) Platelets 353 150 - 450 K/CU MM [facility] Specimen Blood Performing Organization Address [facility] Centercoal Phone Number [address] [address] [phone] CENTER Vitamin B12 and Folate (08/18/2018 3:28 AM CDT) Vitamin B12 941 (H) 213 - 816 pg/mL [facility] Folate 7.1 >=7.0 ng/mL [facility] Specimen Blood Performing Organization Address [facility]coal Phone Number [address] [address] CENTER TSH/Free T4 If Indicated (08/18/2018 3:28 AM CDT) TSH 1.35 0.35 - 4.94 uIU/mL [facility] Specimen Blood Performing Organization Address [facility] Centercode Phone Number [address] [address] [phone] CENTER Hepatitis B Panel (08/17/2018 10:07 PM CDT) Hep B Core Total Ab NON-REACTIVE Nonreactive [facility] Hep B S Ab 193.7 (H) <8.0 mIU/mL [facility] hepatitis B Surface Ag NON-REACTIVE Nonreactive [facility] Specimen Blood Performing Organization Address City/State/Zipcode Phone Number [facility] [address] [place] [address] CENTER MR brain without IV contrast (08/17/2018 5:38 PM CDT) Specimen Narrative Performed At FINAL REPORT [facility] MR, BRAIN, WITHOUT CONTRAST INDICATION: Stroke Stroke TECHNIQUE: Multiplanar, multisequence MR imaging of the brain was obtained. COMPARISON: None FINDINGS: Restricted diffusion with concomitant decreased signal on ADC and FLAIR hyperintensity corresponding to the right BEST SECOND JOBS distribution, with some MCA contribution more cranially, [...] hemangioma. IMPRESSION: Acute stroke involving the right BEST SECOND JOBS and MCA distribution. Upon review of the electronic medical record, clinical team is aware at this time and findings on MRI corresponding to findings on outside institution CT August 16, 2018. Signed: Lizzette Mendes MD Report Verified Date/Time:08/17/2018 17:17:49 Reading Location: [facility] C0[facility] Neuro Reading Room Procedure Note Interface, External Ris In - 08/17/2018 5:40 PM CDT FINAL REPORT MR, BRAIN, WITHOUT CONTRAST INDICATION: Stroke Stroke TECHNIQUE: Multiplanar, multisequence MR imaging of the brain was obtained. COMPARISON: None FINDINGS: Restricted diffusion with concomitant decreased signal on ADC and FLAIR hyperintensity corresponding to the right BEST SECOND JOBS distribution, with some MCA contribution more cranially, [...] hemangioma. IMPRESSION: Acute stroke involving the right BEST SECOND JOBS and MCA distribution. Upon review of the electronic medical record, clinical team is aware at this time and findings on MRI corresponding to findings on outside institution CT August 16, 2018. Signed: Lizzette Mendes MD Report Verified Date/Time: 08/17/2018 17:17:49 Reading Location: [address] Neuro Reading Room Performing Organization Address City/State/Zipcode Phone Number [place] Basic Metabolic Panel (08/17/2018 2:24 PM CDT)Only the most recent of2 resultswithin the time period is included. Sodium 136 136 - 145 meq/L [facility] Potassium 5.6 (H) 3.5 - 5.1 meq/L [facility] Chloride 105 98 - 107 meq/L [facility] CO2 19 (L) 22 - 29 meq/L [facility] BUN 24 (H) 7 - 21 mg/dL [facility] Creatinine 3.37 (H) 0.57 - 1.25 mg/dL [facility] Glucose 178 (H) 70 - 105 mg/dL [facility] Calcium 8.5 8.4 - 10.2 mg/dL [facility] EGFR 13Comment: ESTIMATED GFR IS mL/min/1.[address] [facility] B[facility] NOT ACCURATE [facility] CLEARANCE IN PREDICTING GLOMERULAR FILTRATION RATE. ESTIMATED GFR IS NOT APPLICABLE FOR DIALYSIS PATIENTS. Specimen Blood Performing Organization Address [facility]/Zipcode Phone Number [address] [address] [place] Fasting lipid panel (08/17/2018 4:13 AM CDT) Triglycerides 124 mg/dL [facility] Cholesterol 84 mg/dL [facility] HDL 36 mg/dL [facility] LDL Calculated 23 mg/dL [facility] Specimen Blood Narrative Performed At Triglyceride Reference Range: [facility] Low Risk <150 [id number] High Risk 200-499 Very High Risk>=500 Cholesterol Reference Range: Low Risk <200 [id number] High Risk>240 HDL Cholesterol Reference Range: Low Risk >=60 High Risk <40 LDL Cholesterol Reference Range: Optimal<100 Near [id number] Very High >=190 Fasting Performing Organization Address [facility] Phone Number [address] [address] [place] Troponin I (08/17/2018 12:01 AM CDT)Only the most recent of2 resultswithin the time period is included. Troponin I 0.05 (H) 0.00 - 0.03 ng/mL [facility] Specimen Blood Narrative Performed At Troponin I (TnI) levels must be interpreted [facility] in the context of the presenting symptoms [...] disease, and persistent tachyarrhythmia. Performing Organization Address [facility]/Zipcode Phone Number [address] [address] [place] RPR (08/16/2018 4:19 PM CDT) RPR Nonreactive Nonreactive [facility] Specimen Blood Performing Organization Address City/[facility]/Zipcode Phone Number [address] [address] [place] Prealbumin (08/16/2018 4:19 PM CDT) Prealbumin 17 14 - 45 mg/dL [facility] Specimen Blood Performing Organization Address City/[facility] Centercode Phone Number [address] [address] [place] Homocysteine (08/16/2018 4:19 PM CDT) Homocysteine 21.2 (H) 5.1 - 15.4 umol/L [facility] Specimen Blood Performing Organization Address [facility]coal Phone Number [address] [address] [place] Hemoglobin A1c (08/16/2018 4:19 PM CDT) Hemoglobin A1C 9.0 (H) 4.3 - 6.1 % [facility] Specimen Blood Performing Organization Address [facility]coal Phone Number [address] [address] [phone] [place] Hepatic function panel (08/16/2018 4:19 PM CDT) Protein, Total 7.0 6.0 - 8.3 gm/dL [facility] Albumin 3.0 (L) 3.5 - 5.0 g/dL [facility] Total Bilirubin 0.3 0.2 - 1.2 mg/dL [facility] Bilirubin, Direct 0.2 0.1 - 0.5 mg/dL [facility] Alkaline Phosphatase 71 40 - 150 U/L [facility] AST 11 5 - 34 U/L [facility] ALT 8 6 - 55 U/L [facility] Specimen Blood Performing Organization Address City/State/Zipcode Phone Number [facility] [address] [place] [address] CENTER after 09/19/2017 Insurance Payer Benefit Plan / Group Subscriber ID Type Phone Address MEDICARE MEDICARE PART B xxxxxxxxxx Medicare Advance Directives For more information, please contact:[facility] [place], [place] [phone] Code Status Date Activated Date Inactivated Comments Full Code 08/16/2018 3:43 PM 08/20/2018 10:43 PM This code status was determined by: Patient
--- OUTSIDE RECORDS SUMMARY | 2018-09-20 20:50 | XMS REPORT ---
:1940 [facility] Address [address] [place] [address] [address]. [address]. [address] [place] [address] Care Team Providers Name Role Phone RENETTA [...] Comments WHITE BLOOD CELL COUNT (BEAKER) (test dnrc=419) 10.4 K/ L 3.5-10.5 RED BLOOD CELL COUNT (BEAKER) (test wcbg=197) 4.15 M/ L 3.93-5.22 HEMOGLOBIN (BEAKER) (test yzfn=306) 11.8 GM/DL 11.2-15.7 HEMATOCRIT (BEAKER) (test bblq=871) 39.9 % 34.1-44.9 MEAN CORPUSCULAR VOLUME (BEAKER) (test srrh=012) 96.1 fL 79.4-94.8 MEAN CORPUSCULAR HEMOGLOBIN (BEAKER) (test iodg=477) 28.4 pg 25.6-32.2 MEAN CORPUSCULAR HEMOGLOBIN CONC (BEAKER) (test enlv=370) 29.6 GM/DL 32.2- 35.5 RED CELL DISTRIBUTION WIDTH (BEAKER) (test vnpy=926) 16.2 % 11.7-14.4 PLATELET COUNT (BEAKER) (test cnbw=351) 347 K/CU MM 150-450 MEAN PLATELET VOLUME (BEAKER) (test unrt=062) 9.9 fL 9.4-12.3 NUCLEATED RED BLOOD CELLS (BEAKER) (test msyz=196) 0 /100 WBC 0-0 CALCIUM, [id number] 07:30:00 Test Item Value Reference Range Comments CALCIUM IONIZED (BEAKER) (test bfzu=666) 1.00 mmol/L 1.12-1.27 PH, BLOOD (BEAKER) (test pjdh=6629) 7.41 COMPREHENSIVE METABOLIC [id number] 06:54:00 Test Item Value Reference Range Comments TOTAL PROTEIN (BEAKER) 8.0 gm/dL 6.0-8.3 (test vfif=758) ALBUMIN (BEAKER) (test 3.4 g/dL 3.5-5.0 toxx=0774) ALKALINE PHOSPHATASE 130 U/L 40-150 (BEAKER) (test othn=924) BILIRUBIN TOTAL (BEAKER) 0.5 mg/dL 0.2-1.2 (test gtrj=725) SODIUM (BEAKER) (test 137 meq/L 136-145 esji=276) POTASSIUM (BEAKER) (test 3.9 meq/L 3.5-5.1 gttx=531) CHLORIDE (BEAKER) (test 98 meq/L 98-107 rgls=857) CO2 (BEAKER) (test 27 meq/L 22-29 srku=721) BLOOD UREA NITROGEN 26 mg/dL 7-21 (BEAKER) (test ezhv=567) CREATININE (BEAKER) (test 3.67 mg/dL 0.57-1.25 etnp=984) GLUCOSE RANDOM (BEAKER) 182 mg/dL 70-105 (test hfme=495) CALCIUM (BEAKER) (test 9.0 mg/dL 8.4-10.2 zcwc=692) AST (SGOT) (BEAKER) (test 28 U/L 5-34 jjqb=130) ALT (SGPT) (BEAKER) (test 50 U/L 6-55 sbgc=443) EGFR (BEAKER) (test 12 mL/min/1.73 sq m ESTIMATED GFR IS NOT xsvl=1450) ACCURATE CREATININE CLEARANCE IN PREDICTING GLOMERULAR FILTRATION RATE. ESTIMATED GFR IS NOT APPLICABLE FOR DIALYSIS PATIENTS. [id number] 06:48:00 Test Item Value Reference Range Comments PHOSPHORUS (BEAKER) (test idrz=840) 3.7 mg/dL 2.3-4.7 [id number] 06:48:00 Test Item Value Reference Range Comments MAGNESIUM (BEAKER) (test gwas=861) 2.1 mg/dL 1.6-2.6 CBC W/PLT COUNT & AUTO [id number] 06:33:00 Test Item Value Reference Range Comments WHITE BLOOD CELL COUNT (BEAKER) (test gxkx=750) 10.8 K/ L 3.5-10.5 RED BLOOD CELL COUNT (BEAKER) (test yyrz=245) 3.53 M/ L 3.93-5.22 HEMOGLOBIN (BEAKER) (test ugie=424) 10.0 GM/DL 11.2-15.7 HEMATOCRIT (BEAKER) (test trfp=539) 33.8 % 34.1-44.9 MEAN CORPUSCULAR VOLUME (BEAKER) (test igjp=922) 95.8 fL 79.4-94.8 MEAN CORPUSCULAR HEMOGLOBIN (BEAKER) (test 28.3 pg 25.6-32.2 vumo=727) MEAN CORPUSCULAR HEMOGLOBIN CONC (BEAKER) (test 29.6 GM/DL 32.2-35.5 clos=002) RED CELL DISTRIBUTION WIDTH (BEAKER) (test 16.3 % 11.7-14.4 lcce=167) PLATELET COUNT (BEAKER) (test dpwr=074) 338 K/CU MM 150-450 MEAN PLATELET VOLUME (BEAKER) (test tqfz=018) 9.7 fL 9.4-12.3 NUCLEATED RED BLOOD CELLS (BEAKER) (test 0 /100 WBC 0-0 jmoq=203) NEUTROPHILS RELATIVE PERCENT (BEAKER) (test 78 % nhvm=823) LYMPHOCYTES RELATIVE PERCENT (BEAKER) (test 11 % orra=681) MONOCYTES RELATIVE PERCENT (BEAKER) (test 9 % bbkd=512) EOSINOPHILS RELATIVE PERCENT (BEAKER) (test 1 % znnd=397) BASOPHILS RELATIVE PERCENT (BEAKER) (test 1 % ruzt=262) NEUTROPHILS ABSOLUTE COUNT (BEAKER) (test 8.36 K/ L 1.56-6.13 jrki=579) LYMPHOCYTES ABSOLUTE COUNT (BEAKER) (test 1.22 K/ L 1.18-3.74 bbqc=641) MONOCYTES ABSOLUTE COUNT (BEAKER) (test 0.94 K/ L 0.24-0.36 yrwv=480) EOSINOPHILS ABSOLUTE COUNT (BEAKER) (test 0.10 K/ L 0.04-0.36 vvyq=486) BASOPHILS ABSOLUTE COUNT (BEAKER) (test 0.08 K/ L 0.01-0.08 vpmd=410) IMMATURE GRANULOCYTES-RELATIVE PERCENT (BEAKER) 1 % 0-1 (test ocdl=6623) CBC (HEMOGRAM ONLY)2018-08-19 05:57:00 Test Item Value Reference Range Comments WHITE BLOOD CELL COUNT (BEAKER) (test wdqc=955) 10.8 K/ L 3.5-10.5 RED BLOOD CELL COUNT (BEAKER) (test obmq=385) 3.53 M/ L 3.93-5.22 HEMOGLOBIN (BEAKER) (test fymg=760) 10.0 GM/DL 11.2-15.7 HEMATOCRIT (BEAKER) (test hmqp=441) 33.8 % 34.1-44.9 MEAN CORPUSCULAR VOLUME (BEAKER) (test jkpv=688) 95.8 fL 79.4-94.8 MEAN CORPUSCULAR HEMOGLOBIN (BEAKER) (test 28.3 pg 25.6-32.2 zkub=023) MEAN CORPUSCULAR HEMOGLOBIN CONC (BEAKER) (test 29.6 GM/DL 32.2-35.5 bkvt=061) RED CELL DISTRIBUTION WIDTH (BEAKER) (test 16.3 % 11.7-14.4 twko=752) PLATELET COUNT (BEAKER) (test gryr=363) 338 K/CU MM 150-450 MEAN PLATELET VOLUME (BEAKER) (test mmmw=722) 9.7 fL 9.4-12.3 NUCLEATED RED BLOOD CELLS (BEAKER) (test 0 /100 WBC 0-0 phps=355) [id number] 12:10:00 Test Item Value Reference Range Comments PARTIAL THROMBOPLASTIN TIME (BEAKER) (test 37.1 seconds 22.5-36.0 robe=798) Prior to initiating heparinPROTHROMBIN [id number] 12:09:00 Test Item Value Reference Range Comments PROTIME (BEAKER) (test zpti=399) 15.1 seconds 11.7-14.7 INR (BEAKER) (test lska=000) 1.3 <=5.9 RECOMMENDED COUMADIN/WARFARIN INR THERAPY RANGESSTANDARD DOSE: 2.0 - 3.0 Includes: PROPHYLAXIS forvenous thrombosis, systemic embolization; TREATMENT for venous thrombosis and/or pulmonary embolus.HIGH RISK: Target INR is 2.5-3.5 for patients with mechanical heart valves.Prior to initiating heparinPLATELET [id number] 11:57:00 Test Item Value Reference Range Comments PLATELET COUNT (BEAKER) (test qqhx=020) 353 K/CU MM 150-450 HEPATITIS B [id number] 07:31:00 Test Item Value Reference Range Comments HEPATITIS B CORE TOTAL ANTIBODY (BEAKER) (test Nonreactive Nonreactive cssx=276) HEPATITIS B SURFACE ANTIBODY (BEAKER) (test 193.7 mIU/mL <8.0 xgye=580) HEPATITIS B SURFACE ANTIGEN (2) (BEAKER) (test Nonreactive Nonreactive fmcc=8083) TSH/FREE T4 IF [id number] 06:33:00 Test Item Value Reference Range Comments THYROID STIMULATING HORMONE (BEAKER) (test 1.35 uIU/mL 0.35-4.94 okql=020) VITAMIN B12 AND [id number] 06:33:00 Test Item Value Reference Range Comments VITAMIN B12 (BEAKER) (test hrph=157) 941 pg/mL 213-816 FOLATE (BEAKER) (test hkgg=848) 7.1 ng/mL >=7.0 MR, BRAIN, WITHOUT [id number] 17:17:00Reason for exam:->StrokeWhat is the patient's sedation requirement?->No SedationFINAL REPORT MR, BRAIN, WITHOUT CONTRAST INDICATION: StrokeStroke TECHNIQUE: Multiplanar, multisequence MR imaging of the brain was obtained. COMPARISON: None FINDINGS: Restricted diffusion with concomitant decreased signal on ADC and FLAIR hyperintensity corresponding to the right APPLIANCES SAMPLE MAKER distribution, with some MCA contribution more cranially, [...] hemangioma. 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 Upon review of the electronic medical record, clinical team is aware at this time and findings on MRI corresponding to findings on outside institution CT August 16, 2018. Signed: Lizzette Mendes Verified Date/Time: 08/17/2018 17:17:49 Reading Location: [address] Neuro Reading Room [facility] METABOLIC [id number] 14:58:00 Test Item Value Reference Range Comments SODIUM (BEAKER) (test 136 meq/L 136-145 aztl=834) POTASSIUM (BEAKER) (test 5.6 meq/L 3.5-5.1 sgqc=745) CHLORIDE (BEAKER) (test 105 meq/L 98-107 ycjz=713) CO2 (BEAKER) (test 19 meq/L 22-29 hcec=145) BLOOD UREA NITROGEN 24 mg/dL 7-21 (BEAKER) (test siwh=529) CREATININE (BEAKER) (test 3.37 mg/dL 0.57-1.25 axqm=347) GLUCOSE RANDOM (BEAKER) 178 mg/dL 70-105 (test oqxu=005) CALCIUM (BEAKER) (test 8.5 mg/dL 8.4-10.2 robb=315) EGFR (BEAKER) (test 13 mL/min/1.73 sq m ESTIMATED GFR IS NOT nesb=5369) ACCURATE CREATININE CLEARANCE IN PREDICTING GLOMERULAR FILTRATION RATE. ESTIMATED GFR IS NOT APPLICABLE FOR DIALYSIS PATIENTS. [id number] 14:57:00 Test Item Value Reference Range Comments PHOSPHORUS (BEAKER) (test biek=976) 5.7 mg/dL 2.3-4.7 [id number] 14:57:00 Test Item Value Reference Range Comments MAGNESIUM (BEAKER) (test okwn=112) 2.2 mg/dL 1.6-2.6 CALCIUM, [id number] 14:48:00 Test Item Value Reference Range Comments CALCIUM IONIZED (BEAKER) (test uvme=842) 1.00 mmol/L 1.12-1.27 PH, BLOOD (BEAKER) (test etnm=1866) 7.37 HEMOGLOBIN [id number] 08:51:00 Test Item Value Reference Range Comments HEMOGLOBIN A1C (BEAKER) (test dydw=991) 9.0 % 4.3-6.1 LIPID [id number] 06:30:00 Test Item Value Reference Range Comments TRIGLYCERIDES (BEAKER) (test uceg=289) 124 mg/dL CHOLESTEROL (BEAKER) (test ktij=786) 84 mg/dL HDL CHOLESTEROL (BEAKER) (test ilxb=345) 36 mg/dL LDL CHOLESTEROL CALCULATED (BEAKER) (test 23 mg/dL vmuf=301) Triglyceride Reference Range: Low Risk <150 Borderline 150- 199 High Risk 200-499 Very High Risk >=500Cholesterol Reference Range: Low Risk <200 Borderline 200-239 High Risk > 240HDL Cholesterol Reference Range: Low Risk >=60 High Risk <40LDL Cholesterol Reference Range: Optimal <100 Near Optimal 100-129 Borderline 130-159 High 160-189 Very High >=190 FastingTROPONIN [id number] 00:45:00 Test Item Value Reference Range Comments TROPONIN I (BEAKER) (test voch=624) 0.05 ng/mL 0.00-0.03 Troponin I (TnI) levels [...] failure, acidosis, acute neurological disease, and persistent tachyarrhythmia.[id number] 18:40:00 Test Item Value Reference Range Comments RPR SCREEN (BEAKER) (test fjnh=106) Nonreactive Nonreactive [id number] 17:38:00 Test Item Value Reference Range Comments HOMOCYSTEINE (BEAKER) (test zvxm=327) 21.2 umol/L 5.1-15.4 TROPONIN [id number] 17:25:00 Test Item Value Reference Range Comments TROPONIN I (BEAKER) (test gjcc=351) 0.04 ng/mL 0.00-0.03 Troponin I (TnI) levels [...] acute neurological disease, and persistent tachyarrhythmia.HEPATIC FUNCTION [id number] 17:20: 00 Test Item Value Reference Range Comments TOTAL PROTEIN (BEAKER) (test uvaz=990) 7.0 gm/dL 6.0-8.3 ALBUMIN (BEAKER) (test hhjs=0019) 3.0 g/dL 3.5-5.0 BILIRUBIN TOTAL (BEAKER) (test lhiw=979) 0.3 mg/dL 0.2-1.2 BILIRUBIN DIRECT (BEAKER) (test aekl=406) 0.2 mg/dL 0.1-0.5 ALKALINE PHOSPHATASE (BEAKER) (test yifx=557) 71 U/L 40-150 AST (SGOT) (BEAKER) (test ckva=717) 11 U/L 5-34 ALT (SGPT) (BEAKER) (test exhh=805) 8 U/L 6-55 [id number] 17:20:00 Test Item Value Reference Range Comments PREALBUMIN (BEAKER) (test gdnl=444) 17 mg/dL 14-45 BASIC METABOLIC [id number] 17:20:00 Test Item Value Reference Range Comments SODIUM (BEAKER) (test 138 meq/L 136-145 imzj=345) POTASSIUM (BEAKER) (test 3.2 meq/L 3.5-5.1 pbkl=665) CHLORIDE (BEAKER) (test 104 meq/L 98-107 hhoa=963) CO2 (BEAKER) (test 25 meq/L 22-29 ixwj=999) BLOOD UREA NITROGEN 11 mg/dL 7-21 (BEAKER) (test ronl=043) CREATININE (BEAKER) (test 1.92 mg/dL 0.57-1.25 iqxn=747) GLUCOSE RANDOM (BEAKER) 158 mg/dL 70-105 (test xfgw=438) CALCIUM (BEAKER) (test 8.2 mg/dL 8.4-10.2 xtzn=788) EGFR (BEAKER) (test 25 mL/min/1.73 sq m ESTIMATED GFR IS NOT gggh=6278) ACCURATE CREATININE CLEARANCE IN PREDICTING GLOMERULAR FILTRATION RATE. ESTIMATED GFR IS NOT APPLICABLE FOR DIALYSIS PATIENTS. CBC W/PLT COUNT & AUTO [id number] 17:19:00 Test Item Value Reference Range Comments WHITE BLOOD CELL COUNT (BEAKER) (test adzr=234) 11.9 K/ L 3.5-10.5 RED BLOOD CELL COUNT (BEAKER) (test xqtp=961) 3.23 M/ L 3.93-5.22 HEMOGLOBIN (BEAKER) (test wnul=094) 9.2 GM/DL 11.2-15.7 HEMATOCRIT (BEAKER) (test azql=982) 30.9 % 34.1-44.9 MEAN CORPUSCULAR VOLUME (BEAKER) (test inki=360) 95.7 fL 79.4-94.8 MEAN CORPUSCULAR HEMOGLOBIN (BEAKER) (test 28.5 pg 25.6-32.2 erfm=226) MEAN CORPUSCULAR HEMOGLOBIN CONC (BEAKER) (test 29.8 GM/DL 32.2-35.5 zgqz=015) RED CELL DISTRIBUTION WIDTH (BEAKER) (test 15.6 % 11.7-14.4 monq=234) PLATELET COUNT (BEAKER) (test brkj=927) 373 K/CU MM 150-450 MEAN PLATELET VOLUME (BEAKER) (test kjtx=027) 10.0 fL 9.4-12.3 NUCLEATED RED BLOOD CELLS (BEAKER) (test 0 /100 WBC 0-0 mgfx=988) NEUTROPHILS RELATIVE PERCENT (BEAKER) (test 81 % jbue=502) LYMPHOCYTES RELATIVE PERCENT (BEAKER) (test 11 % bkhs=998) MONOCYTES RELATIVE PERCENT (BEAKER) (test 6 % cmrr=458) EOSINOPHILS RELATIVE PERCENT (BEAKER) (test 0 % btbj=862) BASOPHILS RELATIVE PERCENT (BEAKER) (test 1 % owmw=011) NEUTROPHILS ABSOLUTE COUNT (BEAKER) (test 9.71 K/ L 1.56-6.13 lbve=668) LYMPHOCYTES ABSOLUTE COUNT (BEAKER) (test 1.32 K/ L 1.18-3.74 oqwc=736) MONOCYTES ABSOLUTE COUNT (BEAKER) (test 0.74 K/ L 0.24-0.36 tldi=059) EOSINOPHILS ABSOLUTE COUNT (BEAKER) (test 0.03 K/ L 0.04-0.36 femz=817) BASOPHILS ABSOLUTE COUNT (BEAKER) (test 0.07 K/ L 0.01-0.08 kzim=796) IMMATURE GRANULOCYTES-RELATIVE PERCENT (BEAKER) 1 % 0-1 (test ixea=9876)
[2018-09-20 21:45] LABS: Absolute Lymphocytes (CBC) 1.4 K/uL (0.7-4.9); Absolute Monocytes 0.9 K/uL (0.1-1.3); Absolute Neutrophil 5.8 K/uL (1.8-8.0); Basophils % 1.1 % (0-1.3); Eosinophils % 1.1 % (0-4.4); Hematocrit 38.7 % (36.0-45.0); MPV 9.1 fL (7.6-11.3); Monocytes % 10.6 % (3.3-12.3); RBC Red Blood Cell Count 4.23 M/uL (3.86-4.86)
[2018-09-20 22:06] LABS: Albumin 2.7 g/dL (3.4-5.0); Bilirubin Direct 0.2 mg/dL (0-0.2); Bilirubin Total 0.5 mg/dL (0.2-1.0); Protein, Total 8.2 g/dL (6.4-8.2)
[2018-09-20 22:08] LABS: Potassium 2.7 mmol/L (3.5-5.1)
[2018-09-20] MEDS ORDERED: POTASSIUM CL SA 10 MEQ TAB PO ONE (22:34)
[2018-09-20] MEDS ORDERED: DICYCLOMINE HCL 10 MG CAP ONE (23:02)
[2018-09-20] MEDS ORDERED: NA CHLORIDE 0.9% 500 ML ONE (23:03)
[2018-09-20] MEDS ORDERED: MORPHINE 2 MG/ML SYR ONE (23:03)
--- NOTE | 2018-09-21 00:41 | EDPHYS ---
Physician Documentation [facility] Name: Beti Sanchez Age: 77 yrs Sex: Female : 1940 Arrival Date: 09/20/2018 Time: 20:50 Bed 27 Private MD: ED Physician Scott Tenorio HPI: 09/21 06:11 This 77 yrs old Female presents to ER via Ambulatory with complaints of tw4 Abdominal Pain. 06:11 The patient presents to the emergency department with diarrhea, abdominal pain. Onset: tw4 The symptoms/episode began/occurred 1 week(s) ago. Possible causes: unknown. The symptoms are aggravated by nothing. The symptoms are alleviated by nothing. Severity of symptoms: At their worst the symptoms were moderate in the emergency department the symptoms are unchanged. Historical: - Allergies: 09/20 21:16 No Known Allergies; jd3 - Home Meds: 21:16 metaxalone 400 mg Oral tab daily [Active]; amlodipine 10 mg tab 1 tab once daily jd3 [Active]; atorvastatin 40 mg Oral tab 1 tab once daily [Active]; Bumex Oral 4 mg daily [Active]; carvedilol 3.125 mg Oral tab 1 tab 2 times per day [Active]; clonidine HCl 0.1 mg Oral tab 1 tab once daily [Active]; Eliquis 2.5 mg Oral tab 1 tab 2 times per day [Active]; Lantus 100 unit/mL Sub-Q soln 15 units daily [Active]; Lantus 10 units SQ at bedtime Sub-Q [Active]; losartan 100 mg Oral tab 1 tab once daily [Active]; omeprazole 40 mg Oral cpDR 1 cap once daily [Active]; omeprazole 40 mg Oral cpDR 1 cap once daily [Active]; Phenergan Oral 25 mg daily [Active]; promethazine 25 mg Oral tab 1 tab every 4-6 hours for as needed [Active]; PhosLo 667 mg Oral cap 2 caps 3 times per day [Active]; ropinirole 0.25 mg Oral tab 1 tab every 6 hours PRN [Active]; ropinirole 0.25 mg Oral tab 1 tab 3 times per day [Active]; - PMHx: 21:16 Diabetes - NIDDM; ESRD; Dialysis; Hypertension; CVA; jd3 - PSHx: 21:16 Cholecystectomy; Hysterectomy; dialysis port left arm; jd3 - Immunization history:: Adult Immunizations up to date. - Social history:: Smoking status: Patient/guardian denies using tobacco. - Ebola Screening: : Patient negative for fever greater than or equal to 101.5 degrees Fahrenheit, and additional compatible Ebola Virus Disease symptoms. ROS: 09/21 06:11 Constitutional: Negative for fever, chills, and weight loss, Eyes: Negative for injury, tw4 pain, redness, and discharge, Cardiovascular: Negative for chest pain, palpitations, and edema, Respiratory: Negative for shortness of breath, cough, wheezing, and pleuritic chest pain. MS/Extremity: Negative for injury and deformity, Skin: Negative for injury, rash, and discoloration. Abdomen/GI: Positive for abdominal pain, diarrhea, Negative for nausea and vomiting, nausea, vomiting, and diarrhea, nausea, vomiting, abdominal cramps, abdominal distension, black/tarry stool, rectal pain, rectal bleeding. Exam: 06:11 Constitutional: This is a well developed, well nourished patient who is awake, alert, tw4 and in no acute distress. Head/Face: Normocephalic, atraumatic. Chest/axilla: Normal chest wall appearance and motion. Nontender with no deformity. No lesions are appreciated. Cardiovascular: Regular rate and rhythm with a normal S1 and S2. No gallops, murmurs, or rubs. Normal PMI, no JVD. No pulse deficits. Respiratory: Lungs have equal breath sounds bilaterally, clear to auscultation and percussion. No rales, rhonchi or wheezes noted. No increased work of breathing, no retractions or nasal flaring. 06:11 Abdomen/GI: Soft, non-tender, with normal bowel sounds. No distension or tympany. No guarding or rebound. No evidence of tenderness throughout. MS/ Extremity: Pulses equal, no cyanosis. Neurovascular intact. Full, normal range of motion. Neuro: Awake and alert, GCS 15, oriented to person, place, time, and situation. Cranial nerves II-XII grossly intact. Motor strength 5/5 in all extremities. Sensory grossly intact. Cerebellar exam normal. Normal gait. 06:11 Abdomen/GI: Inspection: abdomen appears normal, Bowel sounds: hyperactive, Palpation: mild abdominal tenderness, in all quadrants. Vital Signs: 09/20 21:16 BP 104 / 53; Pulse 80; Resp 28 S; Temp 97.6(O); Pulse Ox 95% on R/A; Weight 58.97 kg jd3 (R); Height 4 ft. 11 in. (149.86 cm) (R); Pain 8/10; 22:06 BP 102 / 42; Pulse 83; Resp 19 S; Pulse Ox 96% on R/A; ca1 23:00 BP 105 / 56; Pulse 87; Resp 21; Pulse Ox 97% on R/A; ca1 08 00:00 BP 91 / 60; Pulse 84; Resp 13; Pulse Ox 97% ; rv 00:30 BP 104 / 56; Pulse 86; Resp 12; Temp 97.8; Pulse Ox 97% ; rv 01:07 BP 101 / 64; Pulse 78; Resp 15; Temp 98; Pulse Ox 97% ; rv 09/20 21:16 Body Mass Index 26.26 (58.97 kg, 149.86 cm) jd3 MDM: 09/20 21:15 Patient medically screened. tw4 09/21 06:11 Differential diagnosis: Nonspecific abd pain, gastritis, viral gastroenteritis, tw4 gastroenteritis. Data reviewed: vital signs, nurses notes. Counseling: I had a detailed discussion with the patient and/or guardian regarding: the historical points, exam findings, and any diagnostic results supporting the discharge/admit diagnosis, lab results, radiology results. Medication response: morphine markedly relieved the patient's pain. Symptoms have improved. Response to treatment: the patient's symptoms have markedly improved after treatment, and as a result, I will discharge patient. Special discussion: I discussed with the patient/guardian in detail that at this point there is no indication for admission to the hospital. It is understood, however, that if the symptoms persist or worsen the patient needs to return immediately for re-evaluation. 09/20 21:16 Order name: Basic Metabolic Panel; Complete Time: 22:41 tw4 09/20 22:41 Interpretation: Normal except: GLUC 139; K 2.7; CRE 3.62; GFR 12. tw4 09/20 21:16 Order name: CBC with Diff; Complete Time: 22:41 tw4 09/20 22:41 Interpretation: Normal except: MCHC 30.9; RDW 18.4. tw4 09/20 21:16 Order name: Creatinine for Radiology; Complete Time: 22:41 tw4 09/20 22:42 Interpretation: Normal except: CRE 3.63; GFR 12. tw4 09/20 21:16 Order name: Hepatic Function; Complete Time: 22:43 tw4 09/20 22:43 Interpretation: Normal except: ALK 220; ALB 2.7; GLOB 5.5; A/G 0.5. 4 09/20 21:16 Order name: Lipase; Complete Time: 22:43 tw4 09/20 22:43 Interpretation: Within normal limits: LIP 172. 4 09/20 22:32 Order name: Abdomen EDMS 06 00:00 Order name: CDIFF 09/21 00:00 Order name: Stool Culture 09/21 00:00 Order name: Ova And Parasites [facility] [place] 09/21 00:00 Order name: Fecal Leukocyte Stain [facility] [place] 09/20 21:16 Order name: IV Saline Lock; Complete Time: 21:40 tw 09/20 21:16 Order name: Labs collected and sent; Complete Time: 21:40 tw4 Administered Medications: 09/20 22:24 Drug: Potassium Chloride 40 mEq Route: PO; rv 22:54 Follow up: Response: No adverse reaction rv 22:54 Drug: Bentyl 20 mg Route: PO; rv 09/21 00:37 Follow up: Response: Marked relief of symptoms; Pain is decreased rv 09/20 22:54 Drug: morphine 2 mg Route: IVP; Site: right antecubital; rv 09/21 00:37 Follow up: Response: Marked relief of symptoms; Pain is decreased rv 09/20 22:54 Drug: NS 0.9% 500 ml Route: IV; Rate: bolus; Site: right antecubital; rv 09/21 00:37 Follow up: IV Status: Completed infusion; IV Intake: 500ml rv Disposition: 09/21/18 00:40 Discharged to Home. Impression: Infectious gastroenteritis and colitis, unspecified. - Condition is Stable. - Discharge Instructions: Food Choices to Help Relieve Diarrhea, Adult, Chronic Diarrhea, Diarrhea, Adult. - Prescriptions for Vancocin 250 mg Oral capsule - take 1 capsule by ORAL route every 8 hours for 10 days; 30 capsule. - Medication Reconciliation Form, Thank You Letter, Antibiotic Education, Prescription Opioid Use form. - Follow up: Private Physician; When: Upon discharge from the Emergency Department; Reason: If symptoms return, Recheck today's complaints, Continuance of care. Follow up: Alfred Luis MD; When: Upon discharge from the Emergency Department; Reason: If symptoms return, Recheck today's complaints, Continuance of care. - Problem is an ongoing problem. - Symptoms have improved. Signatures: Dispatcher [employer] [facility] Cristóbal Reardon RN RN jd3 Scott Tenorio MD MD tw4 Wyatt Humphrey RN RN rv Corrections: (The following items were deleted from the chart) 09/20 22:32 21:18 Abdomen Pelvis W Con+CT.RAD.BRZ ordered. [facility] 09/21 00:15 00:04 Occult Blood+PA.LAB.BRZ ordered. [facility] 01:09 00:40 09/21/2018 00:40 Discharged to Home. Impression: Infectious gastroenteritis and rv colitis, unspecified. Condition is Stable. Forms are Medication Reconciliation Form, Thank You Letter, Antibiotic Education, Prescription Opioid Use. Follow up: Private Physician; When: Upon discharge from the Emergency Department; Reason: If symptoms return, Recheck today's complaints, Continuance of care. Follow up: Alfred Luis; When: Upon discharge from the Emergency Department; Reason: If symptoms return, Recheck today's complaints, Continuance of care. Problem is an ongoing problem. Symptoms have improved. tw4
--- NOTE | 2018-09-21 00:41 | ER ---
Nurse's Notes [facility] Name: Beti Sanchez Age: 77 yrs Sex: Female : 1940 Arrival Date: 09/20/2018 Time: 20:50 Bed 27 Private MD: Diagnosis: Infectious gastroenteritis and colitis, unspecified Presentation: 09/20 21:10 Presenting complaint: Child states: "She was at [facility] with a cerebral hemorrhage jd3 about a month ago. since we got home she has had worsening diarrhea and vomiting.". Transition of care: patient was not received from another setting of care. Onset of symptoms was September 20, 2018. Risk Assessment: Do you want to hurt yourself or someone else? Patient reports no desire to harm self or others. Initial Sepsis Screen: Does the patient meet any 2 criteria? RR > 20 per min. Mean Arterial Pressure (MAP) < 65. Yes Does the patient have a suspected source of infection? No. Patient's initial sepsis screen is negative. If YES to both, name of provider notified: Scott Tenorio MD. Care prior to arrival: None. 21:10 Method Of Arrival: Ambulatory jd3 21:10 Acuity: KEANU 2 jd3 Historical: - Allergies: 21:16 No Known Allergies; jd3 - Home Meds: 21:16 metaxalone 400 mg Oral tab daily [Active]; amlodipine 10 mg tab 1 tab once daily jd3 [Active]; atorvastatin 40 mg Oral tab 1 tab once daily [Active]; Bumex Oral 4 mg daily [Active]; carvedilol 3.125 mg Oral tab 1 tab 2 times per day [Active]; clonidine HCl 0.1 mg Oral tab 1 tab once daily [Active]; Eliquis 2.5 mg Oral tab 1 tab 2 times per day [Active]; Lantus 100 unit/mL Sub-Q soln 15 units daily [Active]; Lantus 10 units SQ at bedtime Sub-Q [Active]; losartan 100 mg Oral tab 1 tab once daily [Active]; omeprazole 40 mg Oral cpDR 1 cap once daily [Active]; omeprazole 40 mg Oral cpDR 1 cap once daily [Active]; Phenergan Oral 25 mg daily [Active]; promethazine 25 mg Oral tab 1 tab every 4-6 hours for as needed [Active]; PhosLo 667 mg Oral cap 2 caps 3 times per day [Active]; ropinirole 0.25 mg Oral tab 1 tab every 6 hours PRN [Active]; ropinirole 0.25 mg Oral tab 1 tab 3 times per day [Active]; - PMHx: 21:16 Diabetes - NIDDM; ESRD; Dialysis; Hypertension; CVA; jd3 - PSHx: 21:16 Cholecystectomy; Hysterectomy; dialysis port left arm; jd3 - Immunization history:: Adult Immunizations up to date. - Social history:: Smoking status: Patient/guardian denies using tobacco. - Ebola Screening: : Patient negative for fever greater than or equal to 101.5 degrees Fahrenheit, and additional compatible Ebola Virus Disease symptoms. Screenin:41 Abuse screen: Denies threats or abuse. Denies injuries from another. Nutritional rv screening: No deficits noted. Tuberculosis screening: No symptoms or risk factors identified. Fall Risk None identified. Assessment: 21:39 General: Appears in no apparent distress. uncomfortable, Behavior is calm, cooperative. rv Pain: Complains of pain in abdomen. Neuro: Level of Consciousness is awake, alert, obeys commands, Oriented to person, place, time, situation. Cardiovascular: Patient's skin is warm and dry. Respiratory: Airway is patent. GI: Bowel sounds present X 4 quads. Abd is soft and non tender X 4 quads. Parent/caregiver reports the patient having diarrhea. : No signs and/or symptoms were reported regarding the genitourinary system. EENT: No signs and/or symptoms were reported regarding the EENT system. Derm: Skin is intact. Musculoskeletal: No signs and/or symptoms reported regarding the musculoskeletal system. 23:57 Reassessment: Patient appears in no apparent distress at this time. Patient and/or ca1 family updated on plan of care and expected duration. Pain level reassessed. Patient is alert, oriented x 3, equal unlabored respirations, skin warm/dry/pink. Family at bedside. 0608 00:37 Reassessment: Patient appears in no apparent distress at this time. Patient and/or rv family updated on plan of care and expected duration. Pain level reassessed. Patient is alert, oriented x 3, equal unlabored respirations, skin warm/dry/pink. patient is asleep after giving pain medicine. awaiting result of stool exam before discharge. updated Dr Tenorio. Patient states feeling better. Patient states symptoms have improved. Vital Signs: 09/20 21:16 BP 104 / 53; Pulse 80; Resp 28 S; Temp 97.6(O); Pulse Ox 95% on R/A; Weight 58.97 kg jd3 (R); Height 4 ft. 11 in. (149.86 cm) (R); Pain 8/10; 22:06 BP 102 / 42; Pulse 83; Resp 19 S; Pulse Ox 96% on R/A; ca1 23:00 BP 105 / 56; Pulse 87; Resp 21; Pulse Ox 97% on R/A; ca1 06/08 00:00 BP 91 / 60; Pulse 84; Resp 13; Pulse Ox 97% ; rv 00:30 BP 104 / 56; Pulse 86; Resp 12; Temp 97.8; Pulse Ox 97% ; rv 01:07 BP 101 / 64; Pulse 78; Resp 15; Temp 98; Pulse Ox 97% ; rv 06 21:16 Body Mass Index 26.26 (58.97 kg, 149.86 cm) [facility] ED Course: 09/20 20:50 Patient arrived in ED. ag3 21:05 Wyatt Humphrey, VASQUEZ is Primary Nurse. rv 21:13 Triage completed. jd3 21:15 Scott Tenorio MD is Attending Physician. tw4 21:16 Inserted saline lock: 20 gauge in right antecubital area, using aseptic technique. rv Blood collected. 21:16 Arm band placed on. jd3 21:19 Radiology exam delayed due to lab results not completed at this time. (BUN/Creatinine). vm2 21:41 Patient has correct armband on for positive identification. Bed in low position. Call rv light in reach. Side rails up X 1. Adult w/ patient. Pulse ox on. NIBP on. 22:07 Notified ED physician of a critical lab result(s). potassium of 2.7. fc 23:17 Abdomen In Process Unspecified. EDMS 09/21 00:38 Alfred Luis MD is Referral Physician. tw4 01:07 No provider procedures requiring assistance completed. IV discontinued, intact, rv bleeding controlled, No redness/swelling at site. Pressure dressing applied. Administered Medications: 09/20 22:24 Drug: Potassium Chloride 40 mEq Route: PO; rv 22:54 Follow up: Response: No adverse reaction rv 22:54 Drug: Bentyl 20 mg Route: PO; rv 09/21 00:37 Follow up: Response: Marked relief of symptoms; Pain is decreased rv 09/20 22:54 Drug: morphine 2 mg Route: IVP; Site: right antecubital; rv 09/21 00:37 Follow up: Response: Marked relief of symptoms; Pain is decreased rv 09/20 22:54 Drug: NS 0.9% 500 ml Route: IV; Rate: bolus; Site: right antecubital; rv 09/21 00:37 Follow up: IV Status: Completed infusion; IV Intake: 500ml rv Intake: 00:37 IV: 500ml; Total: 500ml. rv Outcome: 00:40 Discharge ordered by . tw4 01:08 Discharged to home via wheelchair. rv 01:08 Condition: improved 01:08 Discharge instructions given to family, Instructed on discharge instructions, follow up and referral plans. medication usage, Demonstrated understanding of instructions, follow-up care, medications, Prescriptions given X 1. 01:09 Patient left the ED. rv Signatures: Dispatcher [employer] EDMS Elizabeth Moralez RN VASQUEZ Rashmi Zamora 2 Cristóbal Reardon RN RN jScott Greenwood MD MD tw4 Wyatt Humphrey RN RN Adeline Mason 3 Danya Tan RN RN ca1 Corrections: (The following items were deleted from the chart) 09/20 21:18 21:10 Initial Sepsis Screen: Does the patient meet any 2 criteria? No. Patient's jd3 initial sepsis screen is negative. Does the patient have a suspected source of infection? No. Patient's initial sepsis screen is negative. jd3 23:57 23:57 Reassessment: Patient appears in no apparent distress at this time. Patient is ca1 alert, oriented x 3, equal unlabored respirations, skin warm/dry/pink. ca1 23:58 23:57 Reassessment: Patient appears in no apparent distress at this time. Patient ca1 and/or family updated on plan of care and expected duration. Pain level reassessed. Patient is alert, oriented x 3, equal unlabored respirations, skin warm/dry/pink. ca1
[2018-09-21 01:21] VITALS: O2SAT 97
[2018-09-21 01:25] VITALS: BP 101/64; TEMP 98
--- NOTE | 2018-09-21 09:01 | EKG ---
Test Date: 2018-09-20 Test Time: 21:15:08 Student Services Coordinator: RV MEASUREMENT RESULTS: Intervals: Rate: 95 AR: QRSD: 88 QT: 404 QTc: 507 [place]: P: AR: QRS: -41 T: 183 INTERPRETIVE STATEMENTS: Atrial fibrillation Left axis deviation Marked ST abnormality, possible inferior subendocardial injury Prolonged QT Abnormal ECG Compared to ECG 08/16/2018 10:36:33 Left-axis deviation now present Prolonged QT interval now present Ventricular premature complex(es) no longer present ST (T wave) deviation still present Electronically Signed On 09-21-18 09:00:32 CDT by Esau Mensah
--- NOTE | 2018-09-23 11:55 | RAD REPORT ---
EXAM DESCRIPTION: CT - Abdomen Pelvis Wo Contrast - 09/21/2018 4:35 am CLINICAL HISTORY: 77 years Female ABD PAIN COMPARISON: September 05, 2018. TECHNIQUE: Images were obtained in axial, sagittal, and coronal planes. No intravenous contrast was administered. This exam was performed according to our departmental dose-optimization program which includes use of Automated Exposure Control, adjustment of the mA and/or kV according to patient size and/or use of i terative reconstruction technique FINDINGS: Enlarged heart with small pericardial effusion. Bilateral pleural effusions. Atelectatic c hange versus infiltrate lower lobes bilaterally. Small hiatal hernia. No abnormality involving the liver, spleen, pancreas, or adrenal glands bilaterally. Prior cholecyste ctomy. Radiopaque medication within the stomach. Appendix within normal limits. No bowel obstruction, or per foration. Possible mucosal thickening involving colon. Atrophic changes kidneys bilaterally. No obstructing renal calcifications bilaterally. No hydronephro sis bilaterally. Unremarkable bladder. Prior internal fixation left hip. Multiple compression fractures thoracic and lumbar spine unchanged. No acute osseous abnormality. Extensive vascular calcification. No dilatation abdominal aorta. No adenopathy or abnormal fluid rashard ections seen. IMPRESSION: Possible colitis. Atrophic changes involving the kidneys bilaterally unchanged. Appendix within normal limits. Electronically signed by: Yareli Jones MD 09/20/2018 11:31 PM CDT Due to temporary technical issues with the PACS/Fluency reporting system, reports are being signed by the in house radiologist as a courtesy to ensure prompt reporting. The interpreting radiologist is f ully responsible for the content of the report.
== END 2018-09-21 01:09 | disposition home or self-care (01) ==
LOC: ER 20:47
DX: A09 Infectious gastroenteritis and colitis, unspecified (principal); E11.22 Type 2 diabetes mellitus with diabetic chronic kidney disease; I63.9 Cerebral infarction, unspecified; I12.0 Hypertensive chronic kidney disease with stage 5 chronic kidney disease or end stage renal disease; N18.6 End stage renal disease; Z99.2 Dependence on renal dialysis
CPT/HCPCS: 96361; 93005; 87045; 85025; 80048; 36415; 89055; 87177; 80076; 87046; 87493; 87209; 83690; 74176; 96374; 99284; J2270

== ENCOUNTER 2018-11-04 14:55 | Inpatient (IN) | payer MEDICARE, OTHER ==
--- OUTSIDE RECORDS SUMMARY | 2018-11-04 14:58 | XMS REPORT | Clinical Summary ---
:1940 Author Organization [facility] Address [address] [place] [address] Care Team Providers Name Role Phone Unavailable [...] cerebral artery (HCC) Vanessa Fang MD after 11/03/2017 Social History Tobacco Use Types Packs/Day Years [...] procedure are in the results section. after 11/03/2017 Results EKG-SCANNED (08/22/2018 10:51 AM CDT) Narrative Performed At RHYTHM STRIP - SCAN (08/22/2018 10:51 AM CDT) Narrative Performed At CBC (hemogram only) (08/20/2018 5:28 AM CDT)Only the most recent of2 resultswithin the time period is included. WBC 10.4 3.5 - 10.5 K/L [facility] RBC 4.15 3.93 - 5.22 M/L [facility] Hemoglobin 11.8 11.2 - 15.7 GM/DL [facility] Hematocrit 39.9 34.1 - 44.9 % [facility] MCV 96.1 (H) 79.4 - 94.8 fL [facility] MCH 28.4 25.6 - 32.2 pg [facility] MCHC 29.6 (L) 32.2 - 35.5 GM/DL [facility] RDW 16.2 (H) 11.7 - 14.4 % [facility] Platelets 347 150 - 450 K/CU MM [facility] MPV 9.9 9.4 - 12.3 fL [facility] nRBC 0 0 - 0 /100 WBC [facility] Specimen Blood Performing Organization Address City/State/Zipcode Phone Number [facility] [address] [place] [address] [phone] CENTER Calcium, Ionized (08/19/2018 5:39 AM CDT)Only the most recent of2 resultswithin the time period is included. Calcium, Ion 1.00 (L) 1.12 - 1.27 mmol/L [facility] pH, Blood 7.41 [facility] Specimen Blood Performing Organization Address City/State/Zipcode Phone Number [facility] [address] [place] [address] CENTER CBC with platelet count + automated diff (08/19/2018 5:39 AM CDT)Only the most recent of2 resultswithin the time period is included. WBC 10.8 (H) 3.5 - 10.5 K/L [facility] RBC 3.53 (L) 3.93 - 5.22 M/L [facility] Hemoglobin 10.0 (L) 11.2 - 15.7 GM/DL [facility] Hematocrit 33.8 (L) 34.1 - 44.9 % [facility] MCV 95.8 (H) 79.4 - 94.8 fL [facility] MCH 28.3 25.6 - 32.2 pg [facility] MCHC 29.6 (L) 32.2 - 35.5 GM/DL [facility] RDW 16.3 (H) 11.7 - 14.4 % [facility] Platelets 338 150 - 450 K/CU MM [facility] MPV 9.7 9.4 - 12.3 fL [facility] nRBC 0 0 - 0 /100 WBC [facility] % Neutros 78 % [facility] % Lymphs 11 % [facility] % Monos 9 % [facility] % Eos 1 % [facility] % Baso 1 % [facility] # Neutros 8.36 (H) 1.56 - 6.13 K/L [facility] # Lymphs 1.22 1.18 - 3.74 K/L [facility] # Monos 0.94 (H) 0.24 - 0.36 K/L [facility] # Eos 0.10 0.04 - 0.36 K/L [facility] # Baso 0.08 0.01 - 0.08 K/L [facility] Immature Granulocytes-Relative 1 0 - 1 % [facility] Specimen Blood Performing Organization Address City/State/Zipcode Phone Number [address] [address] CENTER Phosphorus (08/19/2018 5:39 AM CDT)Only the most recent of2 resultswithin the time period is included. Phosphorus 3.7 2.3 - 4.7 mg/dL [facility] Specimen Blood Performing Organization Address City/[facility] Phone Number [address] [address] CENTER Magnesium (08/19/2018 5:39 AM CDT)Only the most recent of2 resultswithin the time period is included. Magnesium 2.1 1.6 - 2.6 mg/dL [facility] Specimen Blood Performing Organization Address City/[facility]/Zipcode Phone Number [address] [address] CENTER Comprehensive metabolic panel (08/19/2018 5:39 AM CDT) Protein, Total 8.0 6.0 - 8.3 gm/dL [facility] Albumin 3.4 (L) 3.5 - 5.0 g/dL [facility] Alkaline Phosphatase 130 40 - 150 U/L [facility] Total Bilirubin 0.5 0.2 - 1.2 mg/dL [facility] Sodium 137 136 - 145 meq/L [facility] Potassium 3.9 3.5 - 5.1 meq/L [facility] Chloride 98 98 - 107 meq/L [facility] CO2 27 22 - 29 meq/L [facility] BUN 26 (H) 7 - 21 mg/dL [facility] Creatinine 3.67 (H) 0.57 - 1.25 mg/dL [facility] Glucose 182 (H) 70 - 105 mg/dL [facility] Calcium 9.0 8.4 - 10.2 mg/dL [facility] AST 28 5 - 34 U/L [facility] ALT 50 6 - 55 U/L [facility] EGFR 12Comment: ESTIMATED GFR mL/min/1.[address] [facility] IS NOT ACCURATE [facility] CREATININE CLEARANCE IN PREDICTING GLOMERULAR FILTRATION RATE. ESTIMATED GFR IS NOT APPLICABLE FOR DIALYSIS PATIENTS. Specimen Blood Performing Organization Address City/[facility]/Zipcode Phone Number [address] [address] [phone] CENTER aPTT (08/18/2018 11:16 AM CDT) PTT 37.1 (H) 22.5 - 36.0 seconds [facility] Specimen Blood Narrative Performed At Prior to initiating heparin [facility] Performing Organization Address City/[facility] Phone Number [address] [address] [phone] CENTER Prothrombin time/INR (08/18/2018 11:16 AM CDT) Protime 15.1 (H) 11.7 - 14.7 seconds [facility] INR 1.3 <=5.9 [facility] Specimen Blood Narrative Performed At RECOMMENDED COUMADIN/WARFARIN INR THERAPY [facility] RANGES STANDARD DOSE: 2.0 - 3.0 Includes: PROPHYLAXIS for venous thrombosis, systemic embolization; TREATMENT for venous thrombosis and/or pulmonary embolus. HIGH RISK: Target INR is 2.5-3.5 for patients with mechanical heart valves. Prior to initiating heparin Performing Organization Address City/[facility] Phone Number [address] [address] CENTER Platelet count (08/18/2018 11:16 AM CDT) Platelets 353 150 - 450 K/CU MM [facility] Specimen Blood Performing Organization Address [facility] Phone Number [address] [address] [phone] CENTER Vitamin B12 and Folate (08/18/2018 3:28 AM CDT) Vitamin B12 941 (H) 213 - 816 pg/mL [facility] Folate 7.1 >=7.0 ng/mL [facility] Specimen Blood Performing Organization Address [facility] Phone Number [address] [address] CENTER TSH/Free T4 If Indicated (08/18/2018 3:28 AM CDT) TSH 1.35 0.35 - 4.94 uIU/mL [facility] Specimen Blood Performing Organization Address [facility] Phone Number [address] [address] CENTER Hepatitis B Panel (08/17/2018 10:07 PM CDT) Hep B Core Total Ab Nonreactive Nonreactive [facility] Hep B S Ab 193.7 (H) <8.0 mIU/mL [facility] hepatitis B Surface Ag Nonreactive Nonreactive [facility] Specimen Blood Performing Organization Address City/State/Zipcode Phone Number [facility] [address] [place] [address] CENTER MR brain without IV contrast (08/17/2018 5:38 PM CDT) Specimen Narrative Performed At FINAL REPORT [facility] MR, BRAIN, WITHOUT CONTRAST INDICATION: Stroke Stroke TECHNIQUE: Multiplanar, multisequence MR imaging of the brain was obtained. COMPARISON: None FINDINGS: Restricted diffusion with concomitant decreased signal on ADC and FLAIR hyperintensity corresponding to the right DISBURSING OFFICER distribution, with some MCA contribution more cranially, [...] hemangioma. IMPRESSION: Acute stroke involving the right DISBURSING OFFICER and MCA distribution. Upon review of the electronic medical record, clinical team is aware at this time and findings on MRI corresponding to findings on outside institution CT August 16, 2018. Signed: Lizzette Mendes MD Report Verified Date/Time:08/17/2018 17:17:49 Reading Location: [facility] [id number] Neuro Reading Room Procedure Note Interface, External Ris In - 08/17/2018 5:40 PM CDT FINAL REPORT MR, BRAIN, WITHOUT CONTRAST INDICATION: Stroke Stroke TECHNIQUE: Multiplanar, multisequence MR imaging of the brain was obtained. COMPARISON: None FINDINGS: Restricted diffusion with concomitant decreased signal on ADC and FLAIR hyperintensity corresponding to the right DISBURSING OFFICER distribution, with some MCA contribution more cranially, [...] hemangioma. IMPRESSION: Acute stroke involving the right DISBURSING OFFICER and MCA distribution. Upon review of the electronic medical record, clinical team is aware at this time and findings on MRI corresponding to findings on outside institution CT August 16, 2018. Signed: Lizzette Mendes MD Report Verified Date/Time: 08/17/2018 17:17:49 Reading Location: [address] Neuro Reading Room Performing Organization Address City/State/Zipcode Phone Number [place] Basic Metabolic Panel (08/17/2018 2:24 PM CDT)Only the most recent of2 resultswithin the time period is included. Sodium 136 136 - 145 meq/L [facility] Potassium 5.6 (H) 3.5 - 5.1 meq/L [facility] Chloride 105 98 - 107 meq/L [facility] CO2 19 (L) 22 - 29 meq/L [facility] BUN 24 (H) 7 - 21 mg/dL [facility] Creatinine 3.37 (H) 0.57 - 1.25 mg/dL [facility] Glucose 178 (H) 70 - 105 mg/dL [facility] Calcium 8.5 8.4 - 10.2 mg/dL [facility] EGFR 13Comment: ESTIMATED GFR IS mL/min/1.73 sq m [facility] NOT ACCURATE [facility] CLEARANCE IN PREDICTING GLOMERULAR FILTRATION RATE. ESTIMATED GFR IS NOT APPLICABLE FOR DIALYSIS PATIENTS. Specimen Blood Performing Organization Address [facility]/Zipcode Phone Number [address] [address] [place] Fasting lipid panel (08/17/2018 4:13 AM CDT) Triglycerides 124 mg/dL [facility] Cholesterol 84 mg/dL [facility] HDL 36 mg/dL [facility] LDL Calculated 23 mg/dL [facility] Specimen Blood Narrative Performed At Triglyceride Reference Range: [facility] Low Risk <150 [id number] High Risk 200-499 Very High Risk>=500 Cholesterol Reference Range: Low Risk <200 [id number] High Risk>240 HDL Cholesterol Reference Range: Low Risk >=60 High Risk <40 LDL Cholesterol Reference Range: Optimal<100 Near [id number] Very High >=190 Fasting Performing Organization Address [facility] Phone Number [address] [address] [phone] [place] Troponin I (08/17/2018 12:01 AM CDT)Only the most recent of2 resultswithin the time period is included. Troponin I 0.05 (H) 0.00 - 0.03 ng/mL [facility] Specimen Blood Narrative Performed At Troponin I (TnI) levels must be interpreted [facility] in the context of the [...] disease, and persistent tachyarrhythmia. Performing Organization Address [facility]/Zipcode Phone Number [address] [address] [place] RPR (08/16/2018 4:19 PM CDT) RPR Nonreactive Nonreactive [facility] Specimen Blood Performing Organization Address City/[facility] Phone Number [address] [address] [place] Prealbumin (08/16/2018 4:19 PM CDT) Prealbumin 17 14 - 45 mg/dL [facility] Specimen Blood Performing Organization Address City/[facility] Phone Number [address] [address] [phone] CENTER Homocysteine (08/16/2018 4:19 PM CDT) Homocysteine 21.2 (H) 5.1 - 15.4 umol/L [facility] Specimen Blood Performing Organization Address [facility] Phone Number [address] [address] [place] Hemoglobin A1c (08/16/2018 4:19 PM CDT) Hemoglobin A1C 9.0 (H) 4.3 - 6.1 % [facility] Specimen Blood Performing Organization Address [facility] Phone Number [address] [address] [phone] [place] Hepatic function panel (08/16/2018 4:19 PM CDT) Protein, Total 7.0 6.0 - 8.3 gm/dL [facility] Albumin 3.0 (L) 3.5 - 5.0 g/dL [facility] Total Bilirubin 0.3 0.2 - 1.2 mg/dL [facility] Bilirubin, Direct 0.2 0.1 - 0.5 mg/dL [facility] Alkaline Phosphatase 71 40 - 150 U/L [facility] AST 11 5 - 34 U/L [facility] ALT 8 6 - 55 U/L [facility] Specimen Blood Performing Organization Address City/State/Zipcode Phone Number [facility] [address] [place] [address] CENTER after 11/03/2017 Insurance Payer Benefit Plan / Group Subscriber ID Type Phone Address MEDICARE MEDICARE PART B xxxxxxxxxxx Medicare Advance Directives For more information, please contact:[facility] [place], [place] [phone] Code Status Date Activated Date Inactivated Comments Full Code 08/16/2018 3:43 PM 08/20/2018 10:43 PM This code status was determined by: Patient
--- OUTSIDE RECORDS SUMMARY | 2018-11-04 14:59 | XMS REPORT ---
:1940 [facility] Address [address] [place] [address] Dr. Villafana. [address] [place] [address] Care Team Providers Name Role Phone RENETTA [...] Comments WHITE BLOOD CELL COUNT (BEAKER) (test irdw=897) 10.4 K/ L 3.5-10.5 RED BLOOD CELL COUNT (BEAKER) (test hpho=952) 4.15 M/ L 3.93-5.22 HEMOGLOBIN (BEAKER) (test rloy=652) 11.8 GM/DL 11.2-15.7 HEMATOCRIT (BEAKER) (test wjyn=360) 39.9 % 34.1-44.9 MEAN CORPUSCULAR VOLUME (BEAKER) (test rltt=817) 96.1 fL 79.4-94.8 MEAN CORPUSCULAR HEMOGLOBIN (BEAKER) (test njfw=914) 28.4 pg 25.6-32.2 MEAN CORPUSCULAR HEMOGLOBIN CONC (BEAKER) (test kxmo=397) 29.6 GM/DL 32.2- 35.5 RED CELL DISTRIBUTION WIDTH (BEAKER) (test ueyq=334) 16.2 % 11.7-14.4 PLATELET COUNT (BEAKER) (test jwrd=610) 347 K/CU MM 150-450 MEAN PLATELET VOLUME (BEAKER) (test braz=386) 9.9 fL 9.4-12.3 NUCLEATED RED BLOOD CELLS (BEAKER) (test tred=630) 0 /100 WBC 0-0 CALCIUM, [id number] 07:30:00 Test Item Value Reference Range Comments CALCIUM IONIZED (BEAKER) (test jqtu=869) 1.00 mmol/L 1.12-1.27 PH, BLOOD (BEAKER) (test wutf=3162) 7.41 COMPREHENSIVE METABOLIC [id number] 06:54:00 Test Item Value Reference Range Comments TOTAL PROTEIN (BEAKER) 8.0 gm/dL 6.0-8.3 (test nlrs=782) ALBUMIN (BEAKER) (test 3.4 g/dL 3.5-5.0 hnpp=9248) ALKALINE PHOSPHATASE 130 U/L 40-150 (BEAKER) (test bnmg=674) BILIRUBIN TOTAL (BEAKER) 0.5 mg/dL 0.2-1.2 (test ppxj=577) SODIUM (BEAKER) (test 137 meq/L 136-145 pidj=534) POTASSIUM (BEAKER) (test 3.9 meq/L 3.5-5.1 qxdz=380) CHLORIDE (BEAKER) (test 98 meq/L 98-107 gxzs=288) CO2 (BEAKER) (test 27 meq/L 22-29 uijo=529) BLOOD UREA NITROGEN 26 mg/dL 7-21 (BEAKER) (test szoe=226) CREATININE (BEAKER) (test 3.67 mg/dL 0.57-1.25 kfco=123) GLUCOSE RANDOM (BEAKER) 182 mg/dL 70-105 (test xfdu=467) CALCIUM (BEAKER) (test 9.0 mg/dL 8.4-10.2 cnmw=833) AST (SGOT) (BEAKER) (test 28 U/L 5-34 khhk=559) ALT (SGPT) (BEAKER) (test 50 U/L 6-55 nzeb=290) EGFR (BEAKER) (test 12 mL/min/1.73 sq m ESTIMATED GFR IS NOT cndc=2440) ACCURATE CREATININE CLEARANCE IN PREDICTING GLOMERULAR FILTRATION RATE. ESTIMATED GFR IS NOT APPLICABLE FOR DIALYSIS PATIENTS. [id number] 06:48:00 Test Item Value Reference Range Comments PHOSPHORUS (BEAKER) (test osce=181) 3.7 mg/dL 2.3-4.7 [id number] 06:48:00 Test Item Value Reference Range Comments MAGNESIUM (BEAKER) (test exkn=951) 2.1 mg/dL 1.6-2.6 CBC W/PLT COUNT & AUTO [id number] 06:33:00 Test Item Value Reference Range Comments WHITE BLOOD CELL COUNT (BEAKER) (test jynn=564) 10.8 K/ L 3.5-10.5 RED BLOOD CELL COUNT (BEAKER) (test voyn=023) 3.53 M/ L 3.93-5.22 HEMOGLOBIN (BEAKER) (test zsff=598) 10.0 GM/DL 11.2-15.7 HEMATOCRIT (BEAKER) (test ysou=322) 33.8 % 34.1-44.9 MEAN CORPUSCULAR VOLUME (BEAKER) (test tnxe=588) 95.8 fL 79.4-94.8 MEAN CORPUSCULAR HEMOGLOBIN (BEAKER) (test 28.3 pg 25.6-32.2 bqao=053) MEAN CORPUSCULAR HEMOGLOBIN CONC (BEAKER) (test 29.6 GM/DL 32.2-35.5 thva=967) RED CELL DISTRIBUTION WIDTH (BEAKER) (test 16.3 % 11.7-14.4 yohu=240) PLATELET COUNT (BEAKER) (test vvex=990) 338 K/CU MM 150-450 MEAN PLATELET VOLUME (BEAKER) (test ylvc=905) 9.7 fL 9.4-12.3 NUCLEATED RED BLOOD CELLS (BEAKER) (test 0 /100 WBC 0-0 nbxa=460) NEUTROPHILS RELATIVE PERCENT (BEAKER) (test 78 % sgbs=019) LYMPHOCYTES RELATIVE PERCENT (BEAKER) (test 11 % hzxi=457) MONOCYTES RELATIVE PERCENT (BEAKER) (test 9 % hcqs=491) EOSINOPHILS RELATIVE PERCENT (BEAKER) (test 1 % gxvr=487) BASOPHILS RELATIVE PERCENT (BEAKER) (test 1 % joek=507) NEUTROPHILS ABSOLUTE COUNT (BEAKER) (test 8.36 K/ L 1.56-6.13 ashl=626) LYMPHOCYTES ABSOLUTE COUNT (BEAKER) (test 1.22 K/ L 1.18-3.74 ojry=834) MONOCYTES ABSOLUTE COUNT (BEAKER) (test 0.94 K/ L 0.24-0.36 bmps=976) EOSINOPHILS ABSOLUTE COUNT (BEAKER) (test 0.10 K/ L 0.04-0.36 rutc=201) BASOPHILS ABSOLUTE COUNT (BEAKER) (test 0.08 K/ L 0.01-0.08 xnvf=110) IMMATURE GRANULOCYTES-RELATIVE PERCENT (BEAKER) 1 % 0-1 (test kckv=7126) CBC (HEMOGRAM ONLY)2018-08-19 05:57:00 Test Item Value Reference Range Comments WHITE BLOOD CELL COUNT (BEAKER) (test gqez=537) 10.8 K/ L 3.5-10.5 RED BLOOD CELL COUNT (BEAKER) (test zvgs=102) 3.53 M/ L 3.93-5.22 HEMOGLOBIN (BEAKER) (test wbap=062) 10.0 GM/DL 11.2-15.7 HEMATOCRIT (BEAKER) (test tgii=411) 33.8 % 34.1-44.9 MEAN CORPUSCULAR VOLUME (BEAKER) (test yztn=443) 95.8 fL 79.4-94.8 MEAN CORPUSCULAR HEMOGLOBIN (BEAKER) (test 28.3 pg 25.6-32.2 flgm=905) MEAN CORPUSCULAR HEMOGLOBIN CONC (BEAKER) (test 29.6 GM/DL 32.2-35.5 mnnm=638) RED CELL DISTRIBUTION WIDTH (BEAKER) (test 16.3 % 11.7-14.4 kcce=464) PLATELET COUNT (BEAKER) (test hzla=451) 338 K/CU MM 150-450 MEAN PLATELET VOLUME (BEAKER) (test ifze=898) 9.7 fL 9.4-12.3 NUCLEATED RED BLOOD CELLS (BEAKER) (test 0 /100 WBC 0-0 anxz=351) [id number] 12:10:00 Test Item Value Reference Range Comments PARTIAL THROMBOPLASTIN TIME (BEAKER) (test 37.1 seconds 22.5-36.0 foit=230) Prior to initiating heparinPROTHROMBIN TIME/[id number] 12:09:00 Test Item Value Reference Range Comments PROTIME (BEAKER) (test krxc=436) 15.1 seconds 11.7-14.7 INR (BEAKER) (test kssr=004) 1.3 <=5.9 RECOMMENDED COUMADIN/WARFARIN INR THERAPY RANGESSTANDARD DOSE: 2.0 - 3.0 Includes: PROPHYLAXIS forvenous thrombosis, systemic embolization; TREATMENT for venous thrombosis and/or pulmonary embolus.HIGH RISK: Target INR is 2.5-3.5 for patients with mechanical heart valves.Prior to initiating heparinPLATELET [id number] 11:57:00 Test Item Value Reference Range Comments PLATELET COUNT (BEAKER) (test rzld=286) 353 K/CU MM 150-450 HEPATITIS B [id number] 07:31:00 Test Item Value Reference Range Comments HEPATITIS B CORE TOTAL ANTIBODY (BEAKER) (test Nonreactive Nonreactive lecy=127) HEPATITIS B SURFACE ANTIBODY (BEAKER) (test 193.7 mIU/mL <8.0 ggyq=768) HEPATITIS B SURFACE ANTIGEN (2) (BEAKER) (test Nonreactive Nonreactive lnlt=1972) TSH/FREE T4 IF [id number] 06:33:00 Test Item Value Reference Range Comments THYROID STIMULATING HORMONE (BEAKER) (test 1.35 uIU/mL 0.35-4.94 yzku=708) VITAMIN B12 AND [id number] 06:33:00 Test Item Value Reference Range Comments VITAMIN B12 (BEAKER) (test rmjm=905) 941 pg/mL 213-816 FOLATE (BEAKER) (test phis=837) 7.1 ng/mL >=7.0 MR, BRAIN, WITHOUT [id number] 17:17:00Reason for exam:->StrokeWhat is the patient's sedation requirement?->No SedationFINAL REPORT MR, BRAIN, WITHOUT CONTRAST INDICATION: StrokeStroke TECHNIQUE: Multiplanar, multisequence MR imaging of the brain was obtained. COMPARISON: None FINDINGS: Restricted diffusion with concomitant decreased signal on ADC and FLAIR hyperintensity corresponding to the right MITTEN STITCHER distribution, with some MCA contribution more cranially, [...] hemangioma. 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 Upon review of the electronic medical record, clinical team is aware at this time and findings on MRI corresponding to findings on outside institution CT August 16, 2018. Signed: Lizzette Mendes Verified Date/Time: 08/17/2018 17:17:49 Reading Location: [address] Neuro Reading Room [facility] METABOLIC [id number] 14:58:00 Test Item Value Reference Range Comments SODIUM (BEAKER) (test 136 meq/L 136-145 wwmx=288) POTASSIUM (BEAKER) (test 5.6 meq/L 3.5-5.1 bthc=920) CHLORIDE (BEAKER) (test 105 meq/L 98-107 wosz=315) CO2 (BEAKER) (test 19 meq/L 22-29 zsri=672) BLOOD UREA NITROGEN 24 mg/dL 7-21 (BEAKER) (test wehc=574) CREATININE (BEAKER) (test 3.37 mg/dL 0.57-1.25 katz=686) GLUCOSE RANDOM (BEAKER) 178 mg/dL 70-105 (test eatx=874) CALCIUM (BEAKER) (test 8.5 mg/dL 8.4-10.2 ochg=741) EGFR (BEAKER) (test 13 mL/min/1.73 sq m ESTIMATED GFR IS NOT muxp=3197) ACCURATE CREATININE CLEARANCE IN PREDICTING GLOMERULAR FILTRATION RATE. ESTIMATED GFR IS NOT APPLICABLE FOR DIALYSIS PATIENTS. [id number] 14:57:00 Test Item Value Reference Range Comments PHOSPHORUS (BEAKER) (test idon=348) 5.7 mg/dL 2.3-4.7 [id number] 14:57:00 Test Item Value Reference Range Comments MAGNESIUM (BEAKER) (test xkll=537) 2.2 mg/dL 1.6-2.6 CALCIUM, [id number] 14:48:00 Test Item Value Reference Range Comments CALCIUM IONIZED (BEAKER) (test emyn=853) 1.00 mmol/L 1.12-1.27 PH, BLOOD (BEAKER) (test gaqt=5929) 7.37 HEMOGLOBIN [id number] 08:51:00 Test Item Value Reference Range Comments HEMOGLOBIN A1C (BEAKER) (test hyyr=603) 9.0 % 4.3-6.1 LIPID [id number] 06:30:00 Test Item Value Reference Range Comments TRIGLYCERIDES (BEAKER) (test hqlp=862) 124 mg/dL CHOLESTEROL (BEAKER) (test ncsq=690) 84 mg/dL HDL CHOLESTEROL (BEAKER) (test jsvl=750) 36 mg/dL LDL CHOLESTEROL CALCULATED (BEAKER) (test 23 mg/dL pjyw=931) Triglyceride Reference Range: Low Risk <150 Borderline 150- 199 High Risk 200-499 Very High Risk >=500Cholesterol Reference Range: Low Risk <200 Borderline 200-239 High Risk > 240HDL Cholesterol Reference Range: Low Risk >=60 High Risk <40LDL Cholesterol Reference Range: Optimal <100 Near Optimal 100-129 Borderline 130-159 High 160-189 Very High >=190 FastingTROPONIN [id number] 00:45:00 Test Item Value Reference Range Comments TROPONIN I (BEAKER) (test smrv=514) 0.05 ng/mL 0.00-0.03 Troponin I (TnI) levels [...] failure, acidosis, acute neurological disease, and persistent tachyarrhythmia.[id number] 18:40:00 Test Item Value Reference Range Comments RPR SCREEN (BEAKER) (test rspo=400) Nonreactive Nonreactive [id number] 17:38:00 Test Item Value Reference Range Comments HOMOCYSTEINE (BEAKER) (test pfqh=201) 21.2 umol/L 5.1-15.4 TROPONIN [id number] 17:25:00 Test Item Value Reference Range Comments TROPONIN I (BEAKER) (test vcij=196) 0.04 ng/mL 0.00-0.03 Troponin I (TnI) levels [...] acute neurological disease, and persistent tachyarrhythmia.HEPATIC FUNCTION [id number] 17:20: 00 Test Item Value Reference Range Comments TOTAL PROTEIN (BEAKER) (test pgns=784) 7.0 gm/dL 6.0-8.3 ALBUMIN (BEAKER) (test yvzg=7304) 3.0 g/dL 3.5-5.0 BILIRUBIN TOTAL (BEAKER) (test tofk=964) 0.3 mg/dL 0.2-1.2 BILIRUBIN DIRECT (BEAKER) (test sgir=457) 0.2 mg/dL 0.1-0.5 ALKALINE PHOSPHATASE (BEAKER) (test isgo=543) 71 U/L 40-150 AST (SGOT) (BEAKER) (test arym=422) 11 U/L 5-34 ALT (SGPT) (BEAKER) (test rsiz=978) 8 U/L 6-55 [id number] 17:20:00 Test Item Value Reference Range Comments PREALBUMIN (BEAKER) (test qeyo=313) 17 mg/dL 14-45 BASIC METABOLIC [id number] 17:20:00 Test Item Value Reference Range Comments SODIUM (BEAKER) (test 138 meq/L 136-145 uhvj=408) POTASSIUM (BEAKER) (test 3.2 meq/L 3.5-5.1 rdkv=462) CHLORIDE (BEAKER) (test 104 meq/L 98-107 qsdv=848) CO2 (BEAKER) (test 25 meq/L 22-29 yeke=849) BLOOD UREA NITROGEN 11 mg/dL 7-21 (BEAKER) (test ccce=566) CREATININE (BEAKER) (test 1.92 mg/dL 0.57-1.25 kwym=297) GLUCOSE RANDOM (BEAKER) 158 mg/dL 70-105 (test cwnw=852) CALCIUM (BEAKER) (test 8.2 mg/dL 8.4-10.2 njeu=534) EGFR (BEAKER) (test 25 mL/min/1.73 sq m ESTIMATED GFR IS NOT ehrs=3013) ACCURATE CREATININE CLEARANCE IN PREDICTING GLOMERULAR FILTRATION RATE. ESTIMATED GFR IS NOT APPLICABLE FOR DIALYSIS PATIENTS. CBC W/PLT COUNT & AUTO [id number] 17:19:00 Test Item Value Reference Range Comments WHITE BLOOD CELL COUNT (BEAKER) (test cnnj=000) 11.9 K/ L 3.5-10.5 RED BLOOD CELL COUNT (BEAKER) (test tjzq=026) 3.23 M/ L 3.93-5.22 HEMOGLOBIN (BEAKER) (test gpqi=382) 9.2 GM/DL 11.2-15.7 HEMATOCRIT (BEAKER) (test ngan=856) 30.9 % 34.1-44.9 MEAN CORPUSCULAR VOLUME (BEAKER) (test ovbh=156) 95.7 fL 79.4-94.8 MEAN CORPUSCULAR HEMOGLOBIN (BEAKER) (test 28.5 pg 25.6-32.2 yypb=302) MEAN CORPUSCULAR HEMOGLOBIN CONC (BEAKER) (test 29.8 GM/DL 32.2-35.5 vhsy=703) RED CELL DISTRIBUTION WIDTH (BEAKER) (test 15.6 % 11.7-14.4 hqyb=342) PLATELET COUNT (BEAKER) (test itlp=003) 373 K/CU MM 150-450 MEAN PLATELET VOLUME (BEAKER) (test qpgh=975) 10.0 fL 9.4-12.3 NUCLEATED RED BLOOD CELLS (BEAKER) (test 0 /100 WBC 0-0 anaf=635) NEUTROPHILS RELATIVE PERCENT (BEAKER) (test 81 % iozg=351) LYMPHOCYTES RELATIVE PERCENT (BEAKER) (test 11 % aysq=779) MONOCYTES RELATIVE PERCENT (BEAKER) (test 6 % rmwi=012) EOSINOPHILS RELATIVE PERCENT (BEAKER) (test 0 % pebc=425) BASOPHILS RELATIVE PERCENT (BEAKER) (test 1 % cxiy=656) NEUTROPHILS ABSOLUTE COUNT (BEAKER) (test 9.71 K/ L 1.56-6.13 htlc=104) LYMPHOCYTES ABSOLUTE COUNT (BEAKER) (test 1.32 K/ L 1.18-3.74 orki=960) MONOCYTES ABSOLUTE COUNT (BEAKER) (test 0.74 K/ L 0.24-0.36 sbbt=420) EOSINOPHILS ABSOLUTE COUNT (BEAKER) (test 0.03 K/ L 0.04-0.36 mlni=108) BASOPHILS ABSOLUTE COUNT (BEAKER) (test 0.07 K/ L 0.01-0.08 mkhx=823) IMMATURE GRANULOCYTES-RELATIVE PERCENT (BEAKER) 1 % 0-1 (test fwqb=6750)
[2018-11-04 15:54] LABS: Basophils % 0.4 % (0-1.3); Hematocrit 40.8 % (36.0-45.0); Lymphocytes % 3.9 % (15.3-44.8); MPV 8.8 fL (7.6-11.3); RBC Red Blood Cell Count 4.47 M/uL (3.86-4.86)
--- NOTE | 2018-11-04 15:58 | RAD REPORT ---
EXAM DESCRIPTION: CT - Abdomen Pelvis Wo Contrast - 11/04/2018 3:48 pm CLINICAL HISTORY: Abdominal pain. ABD PAIN COMPARISON: Abdomen Pelvis Wo Contrast dated 09/20/2018 TECHNIQUE: CT imaging of the abdomen and pelvis was performed without contrast. Solid organ, bowel a nd vascular assessment is limited due to lack of IV and oral contrast. All CT scans are performed using dose optimization technique as appropriate and may include automated exposure control or mA/KV adjustment according to patient size. FINDINGS: Small bilateral pleural effusions are present, slightly larger on the right with atelectas is in both lung bases. Small moderate pericardial effusion also seen. Cholecystectomy clips noted. Small hiatal hernia. Noncontrast assessment of the liver, spleen, pancre as, adrenal glands are normal. Atrophic kidneys seen bilaterally. Heavy atherosclerosis is present. There is thickening of the left colon seen including the rectosigmoid suggesting a mild colitis. The appendix is normal. No bowel obstruction, free air, free fluid or abscess. Moderate lumbar degenerative changes.Hardware is present in the left hip. IMPRESSION: A mild colitis is suspected involving the left colon and rectosigmoid colon. No pneumato sis. Small bilateral pleural effusions with small to moderate pericardial effusion. Heavy atherosclerosis. Atrophic kidneys. A limited non-contrast examination was performed as detailed.
--- NOTE | 2018-11-04 16:15 | ER ---
Nurse's Notes [facility] Name: Beti Sanchez Age: 78 yrs Sex: Female : 1940 Arrival Date: 11/04/2018 Time: 14:57 Bed 7 Private MD: Diagnosis: Infectious gastroenteritis and colitis, unspecified;Dehydration;Hypotension;Weakness Presentation: 11/04 15:21 Presenting complaint: Patient states: generalized abd pain and diarrhea x 3 days ago. aa5 Pt reports last dialysis was Sunday. Transition of care: patient was not received from another setting of care. Onset of symptoms was October 2018. Risk Assessment: Do you want to hurt yourself or someone else? Patient reports no desire to harm self or others. Care prior to arrival: None. 15:21 Method Of Arrival: Wheelchair aa5 15:21 Acuity: KEANU 2 aa5 15:30 Initial Sepsis Screen: Does the patient meet any 2 criteria? Systolic BP < 90 mmHg. HR aa5 > 90 bpm. Yes Does the patient have a suspected source of infection? Yes: Other: abd pain/diarrhea. Historical: - Allergies: 15:24 No Known Allergies; aa5 - PMHx: 15:24 CVA; Diabetes - NIDDM; Dialysis; ESRD; Hypertension; aa5 - PSHx: 15:24 Cholecystectomy; dialysis port left arm; Hysterectomy; aa5 - Immunization history:: Adult Immunizations up to date. - Ebola Screening: : No symptoms or risks identified at this time. - Family history:: not pertinent. - Social history:: Smoking status: Patient/guardian denies using tobacco. - Hospitalizations: : No recent hospitalization is reported. Screenin:59 Abuse screen: Denies threats or abuse. Denies injuries from another. Nutritional ss screening: No deficits noted. Tuberculosis screening: Never had TB. Assessment: 15:24 Reassessment: last dialysis session was 2 days ago. General: Appears distressed, ss uncomfortable, Behavior is cooperative, appropriate for age. Pain: Complains of pain in abdomen Pain currently is 10 out of 10 on a pain scale. Quality of pain is described as aching, sharp, tender, Pain began x3 days, is worse after eating. Pt reports inability to sleep because of pain over the past few days. Is continuous, Noted to be grimacing, moaning. Neuro: Level of Consciousness is awake, alert, obeys commands, Oriented to person, place. Cardiovascular: Pulses are palpable in right radial artery and left radial artery. Respiratory: Airway is patent Respiratory effort is even, unlabored, Respiratory pattern is regular, symmetrical. GI: Abdomen is non-distended, Bowel sounds present X 4 quads. Abd is soft and non tender X 4 quads. Reports lower abdominal pain, upper abdominal pain, diarrhea, Patient currently denies bloody stool, nausea, vomiting. : No signs and/or symptoms were reported regarding the genitourinary system. EENT: Oral mucosa is moist. Derm: Skin is intact, is healthy with good turgor, Skin is dry, Skin is pink, warm \T\ dry. normal. Musculoskeletal: Circulation, motion, and sensation intact. Range of motion: intact in all extremities, Swelling absent. 16:00 Reassessment: Pt back from CT. ss 16:45 Reassessment: patient reports after pain medication administration that pain has ss improved to 6/10. 18:15 Reassessment: Attempted to call report, nurse unavailable at this time. ss 19:14 Reassessment: attempted to call report, nurse unavailable at this time. ss 19:34 Reassessment: Attempted to call report, nurse unavailable at this time and states she ss will call back momentarily. Vital Signs: 15:22 BP 64 / 30; Pulse 107; Resp 20 S; Temp 98.7(O); Pulse Ox 96% on R/A; aa5 15:41 BP 87 / 61; Pulse 104; ss 15:59 BP 108 / 62; ss 16:55 BP 103 / 56; Pulse 102; Resp 20; Pulse Ox 95% on R/A; Pain 7/10; ss 19:00 BP 109 / 60; Pulse 105; Resp 18; Pulse Ox 97% ; Pain 8/10; ss ED Course: 14:57 Patient arrived in ED. as 15:21 Arm band placed on. aa5 15:23 Triage completed. aa5 15:26 Ervin Cordero MD is Attending Physician. rn 15:40 Inserted saline lock: 22 gauge in right antecubital area, using aseptic technique. ss Blood collected. 15:51 CT Abd/Pelvis - Without Contrast In Process Unspecified. EDMS 15:58 Ansley Chao, VASQUEZ is Primary Nurse. ss 15:59 Patient has correct armband on for positive identification. Bed in low position. Call ss light in reach. Side rails up X2. Adult w/ patient. Placed in gown. switchboard operator helper on. Pulse ox on. NIBP on. 16:12 Yovanny Ashton MD is Hospitalizing Provider. rn 19:25 No provider procedures requiring assistance completed. Patient admitted, IV remains in ss place. Administered Medications: 16:00 Drug: NS 0.9% 500 ml Route: IV; Rate: bolus; Site: right antecubital; ss 17:00 Follow up: IV Status: Completed infusion; IV Intake: 500ml ss 16:09 Not Given (Other Intervention Used): Rocephin - (cefTRIAXone) 1 grams IVPB once over 30 ss mins; (mix in 50 mL NS) 16:22 Drug: Rocephin 1 grams Route: IV; Rate: calculated rate; Site: right antecubital; ss 16:25 Follow up: IV Status: Completed infusion ss 16:23 Drug: Flagyl 500 mg Volume: 100 ml; Route: IVPB; Rate: 200 ml/hr; Infused Over: 30 ss mins; Site: right antecubital; 17:00 Follow up: IV Status: Completed infusion ss 16:25 Drug: fentaNYL (PF) 25 mcg Route: IVP; Site: right antecubital; ss 17:00 Follow up: Response: No adverse reaction; Pain is decreased ss 19:32 Drug: fentaNYL (PF) 25 mcg Route: IVP; Site: right antecubital; ss 19:44 Follow up: Response: No adverse reaction; Pain is decreased Point of Care Testing: Blood Glucose: 15:41 Blood Glucose: 166 mg/dL; ss Ranges: Intake: 17:00 IV: 500ml; Total: 500ml. Outcome: 16:14 Decision to Hospitalize by Provider. rn 19:25 Condition: stable ss 19:25 Instructed on the need for admit. 19:46 Admitted to Med/surg accompanied by tech, family with patient, via stretcher, room 403, ss with chart, Report called to VASQUEZ Ceballos 19:47 Patient left the ED. ss Signatures: Dispatcher [employer] EDPrincess Agarwal Roman, MD MD rn Calderon, Audri RN RN aa5 Smirch, Ansley, RN RN ss
--- NOTE | 2018-11-04 16:15 | EDPHYS ---
Physician Documentation [facility] Name: Beti Sanchez Age: 78 yrs Sex: Female : 1940 Arrival Date: 11/04/2018 Time: 14:57 Bed 7 Private MD: ED Physician Ervin Cordero HPI: 11/04 15:35 This 78 yrs old Female presents to ER via Wheelchair with complaints of rn Abdominal Pain. 15:35 The patient presents with abdominal pain in the periumbilical area. Onset: The rn symptoms/episode began/occurred at an unknown time. The symptoms do not radiate. Associated signs and symptoms: Pertinent positives: diarrhea, nausea, Pertinent negatives: dysuria, fever. Modifying factors: The symptoms are alleviated by nothing, the symptoms are aggravated by nothing. Severity of pain: At its worst the pain was moderate in the emergency department the pain is unchanged. The patient has experienced similar episodes in the past. 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 Historical: - Allergies: 15:24 No Known Allergies; aa5 - PMHx: 15:24 CVA; Diabetes - NIDDM; Dialysis; ESRD; Hypertension; aa5 - PSHx: 15:24 Cholecystectomy; dialysis port left arm; Hysterectomy; aa5 - Immunization history:: Adult Immunizations up to date. - Ebola Screening: : No symptoms or risks identified at this time. - Family history:: not pertinent. - Social history:: Smoking status: Patient/guardian denies using tobacco. - Hospitalizations: : No recent hospitalization is reported. ROS: 15:35 Constitutional: Negative for fever, chills, and weight loss, Eyes: Negative for injury, rn pain, redness, and discharge, Neck: Negative for injury, pain, and swelling, Cardiovascular: Negative for chest pain, palpitations, and edema, Respiratory: Negative for shortness of breath, cough, wheezing, and pleuritic chest pain, Abdomen/GI: Negative for vomiting, and constipation, MS/Extremity: Negative for injury and deformity, Skin: Negative for injury, rash, and discoloration, Neuro: Negative for headache, numbness, tingling, and seizure. Exam: 15:35 Constitutional: This is a well developed, well nourished patient who is awake, alert rn Head/Face: Normocephalic, atraumatic. ENT: dry MM Cardiovascular: tachycardic, regular, no murmur Respiratory: Lungs have equal breath sounds bilaterally, clear to auscultation. No increased work of breathing, no retractions or nasal flaring. Abdomen/GI: soft, + mid and LLQ tenderness, no rebound Skin: Warm, dry MS/ Extremity: Pulses equal, no cyanosis. Neurovascular intact. Full, normal range of motion. Equal circumference. Neuro: Awake and alert, GCS 15, oriented to person, place, time, and situation. Cranial nerves II-XII grossly intact. Motor strength 5/5 in all extremities. Sensory grossly intact. Vital Signs: 15:22 BP 64 / 30; Pulse 107; Resp 20 S; Temp 98.7(O); Pulse Ox 96% on R/A; aa5 15:41 BP 87 / 61; Pulse 104; ss 15:59 BP 108 / 62; ss 16:55 BP 103 / 56; Pulse 102; Resp 20; Pulse Ox 95% on R/A; Pain 7/10; ss 19:00 BP 109 / 60; Pulse 105; Resp 18; Pulse Ox 97% ; Pain 8/10; ss MDM: 15:26 Patient medically screened. rn 16:10 Differential diagnosis: diverticulitis, colitis, dehydration, sepsis. Data reviewed: rn vital signs, nurses notes, lab test result(s), radiologic studies, CT scan, and as a result, I will admit patient. Counseling: I had a detailed discussion with the patient and/or guardian regarding: the historical points, exam findings, and any diagnostic results supporting the discharge/admit diagnosis, lab results, radiology results, the need for further work-up and treatment in the hospital. Response to treatment: the patient's symptoms have mildly improved after treatment, and as a result, I will admit patient. Admission orders: after a detailed discussion of the patient's condition and case, the admit orders are written by me. ED course: BP improved, + mild colitis on CT but + marked dehydration with 25k WBC, weakness, is dialysis patient, will admit for IV abx and fluid rehydration. Also, failed outpt therapy of colitis by Dr. Pretty.. 11/04 15:35 Order name: Basic Metabolic Panel; Complete Time: 17:09 rn 11/04 15:35 Order name: CBC with Diff; Complete Time: 17: rn 11/04 15:35 Order name: Hepatic Function; Complete Time: 17:09 rn 11/04 15:35 Order name: Lipase; Complete Time: 17:09 rn 11/04 15:35 Order name: Lactate; Complete Time: 17:09 rn 11/04 15:35 Order name: Blood Culture Adult (2) rn 11/04 15:35 Order name: CT Abd/Pelvis - Without Contrast; Complete Time: 16:06 rn 11/04 15:35 Order name: Procalcitonin; Complete Time: 17: rn 11/04 16:09 Order name: CBC Smear Scan; Complete Time: 17:09 EDMS 11/04 15:35 Order name: IV Saline Lock; Complete Time: 16:24 rn 11/04 15:35 Order name: Labs collected and sent; Complete Time: 16:24 rn Administered Medications: 16:00 Drug: NS 0.9% 500 ml Route: IV; Rate: bolus; Site: right antecubital; ss 17:00 Follow up: IV Status: Completed infusion; IV Intake: 500ml ss 16:09 Not Given (Other Intervention Used): Rocephin - (cefTRIAXone) 1 grams IVPB once over 30 ss mins; (mix in 50 mL NS) 16:22 Drug: Rocephin 1 grams Route: IV; Rate: calculated rate; Site: right antecubital; ss 16:25 Follow up: IV Status: Completed infusion ss 16:23 Drug: Flagyl 500 mg Volume: 100 ml; Route: IVPB; Rate: 200 ml/hr; Infused Over: 30 ss mins; Site: right antecubital; 17:00 Follow up: IV Status: Completed infusion ss 16:25 Drug: fentaNYL (PF) 25 mcg Route: IVP; Site: right antecubital; ss 17:00 Follow up: Response: No adverse reaction; Pain is decreased ss 19:32 Drug: fentaNYL (PF) 25 mcg Route: IVP; Site: right antecubital; ss 19:44 Follow up: Response: No adverse reaction; Pain is decreased ss Point of Care Testing: Blood Glucose: 15:41 Blood Glucose: 166 mg/dL; ss Ranges: Critical Glucose Levels:Adult <50 mg/dl or >400 mg/dl <40 mg/dl or >180 mg/dl Disposition: 11/04/18 16:14 Hospitalization ordered by Yovanny Ashton for Inpatient Admission. Preliminary diagnosis are Infectious gastroenteritis and colitis, unspecified, Dehydration, Hypotension, Weakness. - Bed requested for Telemetry/MedSurg (Inpatient). - Status is Inpatient Admission. ss - Condition is Stable. - Problem is an ongoing problem. - Symptoms have improved. UTI on Admission? No Signatures: Dispatcher [employer] EDNancy Brown RN RN dw Ervin Cordero MD MD rn Calderon, Audri, RN RN aa5 Ansley Chao RN RN ss Corrections: (The following items were deleted from the chart) 18:12 16:14 Hospitalization Ordered by Yovanny Ashton MD for Inpatient Admission. Preliminary dw diagnosis is Infectious gastroenteritis and colitis, unspecified; Dehydration; Hypotension; Weakness. Bed requested for Telemetry/MedSurg (Inpatient). Status is Inpatient Admission. Condition is Stable. Problem is an ongoing problem. Symptoms have improved. UTI on Admission? No. rn 19:47 18:12 11/04/2018 16:14 Hospitalization Ordered by Yovanny Ashton MD for Inpatient ss Admission. Preliminary diagnosis is Infectious gastroenteritis and colitis, unspecified; Dehydration; Hypotension; Weakness. Bed requested for Telemetry/MedSurg (Inpatient). Status is Inpatient Admission. Condition is Stable. Problem is an ongoing problem. Symptoms have improved. UTI on Admission? No. dw
[2018-11-04] MEDS ORDERED: NA CHLORIDE 0.9% 500 ML ONE (16:20)
[2018-11-04 16:26] LABS: Albumin 2.2 g/dL (3.4-5.0); Bilirubin Direct 0.2 mg/dL (0-0.2); Bilirubin Total 0.7 mg/dL (0.2-1.0); Protein, Total 7.3 g/dL (6.4-8.2)
[2018-11-04] MEDS ORDERED: FENTANYL CITR 100 MCG/2 ML ONE ×2 (16:31→19:47)
[2018-11-04] MEDS ORDERED: METRONIDAZOLE 500mg IVPB 500 MG/100 ML BAG IV ONE (16:31)
[2018-11-04] MEDS ORDERED: CEFTRIAXONE/SWI 1gm 1 GM/10 ML SYR ONE (16:31)
[2018-11-04 16:33] LABS: Potassium 2.5 mmol/L (3.5-5.1)
[2018-11-04 16:49] LABS: Blood Morphology Comment NOTED (NOT SEEN); Platelet Estimate ADEQ; Poikilocytosis 1+; Urine White Blood Cell Casts OK
[2018-11-04 16:50] LABS: Anisocytosis 1+
--- NOTE | 2018-11-04 18:41 | P.HP ---
Patient History Date of Service: 11/04/18 Reason for admission: Abdominal pain History of Present Illness: This is a 78-year-old female with history of bilateral eye blindness, CVA, diabetes, ESRD on dialysis and hypertension was admitted for abdominal pain. Per patient and family at bedside, patient with abdominal pain for the past week. She is seen in her primary care office, a trial of ciprofloxacin without any symptom improvement. Patient's symptoms of abdominal pain, nausea, vomiting and diarrhea worsening. Denies any more blood in vomitus/stool, chest pain, shortness of breath, headache, dizziness, vision changes. Therefore she which brought to the emergency room. In the ER, blood pressure will was found to be low at 64 with 30 which improved to 1 0 8/62 after 500 mL bolus. Heart rate was 107, respirations 20, afebrile and 96% on room air. Her labs remarkable for WBC count of 25.7, lactic acid of 2.2 and alk-phos of 152. Her creatinine was 3.8 and potassium of 2.5. She was given Rocephin, Flagyl and fentanyl for pain control. At the time of my exam, she was alert oriented x3, with improved blood pressures , and was in mild to moderate distress due to pain. She was admitted for colitis, failed outpatient therapy. Allergies No Known Allergies Allergy (Verified 04/30/13 00:22) Home medications list reviewed: Yes Home Medications: Carvedilol [Coreg*] 25 mg PO BID 04/29/13 Insulin Glargine Human [Lantus*] 15 unit SQ BEDTIME 04/29/13 Promethazine Tab [Phenergan*] 25 mg PO Q6HP PRN 04/29/13 Omeprazole [Prilosec] 40 mg PO DAILY 04/18/16 Amlodipine [Norvasc*] 10 mg PO DAILY #30 tab 04/19/16 Hydralazine [Apresoline*] 10 mg PO TID #90 tab 04/19/16 Lisinopril [Prinivil*] 20 mg PO BID #60 tab 04/19/16 Isosorbide Mononitrate [Isosorbide Mononitrate ER] 60 mg PO DAILY #30 tab.er.24h 04/20/16 - Past Medical/Surgical History Diabetic: Yes -: HTN -: ESRD, Hemodialysis-M/W/F -: Anemia of chronic disease -: DM Gastroparesis -: GERD -: Surgical Menopause -: Hysterectomy Psychosocial/ Personal History: - Social History Alcohol use: No CD- Drugs: No Caffeine use: No Review of Systems 10-point ROS is otherwise unremarkable Physical Examination - Physical Exam General: Alert, Oriented x3, Moderate distress HEENT: Atraumatic, PERRLA, Mucous membr. moist/pink, EOMI, Sclerae nonicteric Neck: Supple, 2+ carotid pulse no bruit, No LAD, Without JVD or thyroid abnormality Respiratory: Clear to auscultation bilaterally, Normal air movement Cardiovascular: Regular rate/rhythm, Normal S1 S2 Gastrointestinal: Normal bowel sounds, Tenderness, Guarding Musculoskeletal: No tenderness Integumentary: No rashes Neurological: Normal gait, Normal speech, Normal strength at 5/5 x4 extr, Normal tone, Normal affect Lymphatics: No axilla or inguinal lymphadenopathy - Studies Laboratory Data (last 24 hrs) 11/04/18 15:40: WBC 25.7 H*, Hgb 12.9, Hct 40.8, Plt Count 239 11/04/18 15:40: Sodium 138, Potassium 2.5 L*, BUN 12, Creatinine 3.80 H, Glucose 135 H, Total Bilirubin 0.7, AST 16, ALT 12, Alkaline Phosphatase 152 H, Lipase 64 L Assessment and Plan - Problems (Diagnosis) (1) Colitis Current Visit: Yes Status: Acute (2) Leukocytosis Current Visit: No Status: Active (3) Nausea and vomiting Current Visit: No Status: Active (4) Hypertension Current Visit: No Status: Chronic Qualifiers: Hypertension type: essential hypertension Qualified Code(s): I10 - Essential (primary) hypertension (5) ESRD (end stage renal disease) on dialysis Current Visit: Yes Status: Chronic (6) History of CVA (cerebrovascular accident) Current Visit: No Status: Chronic (7) Diabetes mellitus Current Visit: No Status: Acute Plan: Type 2 diabetes, noninsulin dependent. - Plan Admit patient to the floor with tele. - start IV antibiotics with Rocephin and Flagyl. - continue to keep NPO - will hold IV fluids at this time due to history of ESRD on hemodialysis - nephrology consulted, for a ESRD/dialysis. - continue to monitor vitals and a.m. labs DVT prophylaxis: Heparin GI prophylaxis: None Diet: NPO Disposition: Pending symptomatic improvement. - Advance Directives Does patient have a Living Will: Yes Does patient have a Durable POA for Healthcare: Yes
[2018-11-04] MEDS ORDERED: INSULIN -REGULAR HUMAN 50 UNIT/0.5 ML ML SQ SCH (21:00)
[2018-11-04] MEDS ORDERED: CEFTRIAXONE 1 GM/NS 50 ML 1 GM/50 ML BAG IV SCH (21:00)
[2018-11-04] MEDS ORDERED: NA CHLORIDE 0.9% 250 ML IV PRN (21:36)
[2018-11-04] MEDS ORDERED: NA CHLORIDE 0.9% 1,000 ML ONE (21:55)
--- NOTE | 2018-11-04 22:28 | P.PN ---
Subjective Date of Service: 11/04/18 Primary Care Provider: Nephrology-Dr. Carter Chief Complaint: Abdominal pain Subjective: Other (Patient alert. Patient stable at this time. I was called to evaluate patient's blood pressure. Patient had been given medication for pain. Patient in for colitis.) Physical Examination - Vital Signs Temperature: 98.6 F Blood Pressure: 114/63 Pulse: 100 Respirations: 16 - Physical Exam General: Alert, In no apparent distress, Other (Patient is Tunisian-speaking) Respiratory: Clear to auscultation bilaterally, Normal air movement Cardiovascular: Normal pulses, Regular rate/rhythm Gastrointestinal: Hypoactive, Non-distended, Tenderness (Pain to the abdomen.) Neurological: Normal speech, Normal strength at 5/5 x4 extr, Normal tone, Normal affect - Studies Laboratory Data (last 24 hrs) 11/04/18 15:40: WBC 25.7 H*, Hgb 12.9, Hct 40.8, Plt Count 239 11/04/18 15:40: Sodium 138, Potassium 2.5 L*, BUN 12, Creatinine 3.80 H, Glucose 135 H, Total Bilirubin 0.7, AST 16, ALT 12, Alkaline Phosphatase 152 H, Lipase 64 L Medications List Reviewed: Yes Assessment & Plan Discharge Plan: Home Plan to discharge in: Greater than 2 days Physician Review Additional Text: Impression: Abdominal pain secondary to left-sided colitis Hypotension likely volume depletion complicated with end-stage renal disease on hemodialysis Hypertension Diabetes mellitus type 2, insulin dependent 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 Patient appears stable this time. Case also discussed with nephrology. Will provide 250 normal saline bolus and continue with low-dose IV fluids at 50 cc/hour of normal saline. Will continue to monitor closely. Continue IV antibiotic therapy and pain control. Patient currently NPO at this time. Will continue to monitor and assess. Will hold blood pressure medication at this time. Will provide insulin sliding scale and Accu-Cheks. May need to adjust IV fluids if blood sugar less than 100 to prevent hypoglycemia. Will recheck chest x-ray tomorrow. Patient may require echocardiogram to assess chronic pericardial effusion. Time Spent Managing Pts Care (In Minutes): 55
[2018-11-04] MEDS ORDERED: GLUCAGON 1 MG/VIAL IM PRN (22:29)
[2018-11-04] MEDS ORDERED: D50W 25 GM/50 ML SYRINGE IV PRN (22:29)
[2018-11-04] MEDS ORDERED: NA CHLORIDE 0.9% 1,000 ML IV SCH (23:00)
[2018-11-04] MEDS: HEPARIN 5000 UNIT/ML 1 ML VIAL SQ SCH (23:08)
[2018-11-04] MEDS ORDERED: KCL 20 MEQ/100 mL IVPB 20 MEQ/100 ML BAG IV SCH (23:45)
[2018-11-05] MEDS: METRONIDAZOLE 500mg IVPB 500 MG/100 ML BAG IV SCH ×4 (00:56→20:34)
[2018-11-05] MEDS: HEPARIN 5000 UNIT/ML 1 ML VIAL SQ SCH ×2 (01:00→09:09)
[2018-11-05] MEDS: MORPHINE 2 MG/ML SYR IV PRN ×2 (04:07→11:01)
[2018-11-05 04:52] LABS: Absolute Lymphocytes (CBC) 1.2 K/uL (0.7-4.9); Basophils % 0.7 % (0-1.3); Hematocrit 36.3 % (36.0-45.0); Lymphocytes % 5.4 % (15.3-44.8); MPV 9.2 fL (7.6-11.3)
[2018-11-05 05:13] LABS: Albumin 1.9 g/dL (3.4-5.0); Bilirubin Total 0.4 mg/dL (0.2-1.0); Magnesium 1.7 mg/dL (1.8-2.4); Potassium 2.8 mmol/L (3.5-5.1); Protein, Total 6.2 g/dL (6.4-8.2)
[2018-11-05] MEDS: INSULIN -REGULAR HUMAN 50 UNIT/0.5 ML ML SQ SCH ×4 (05:37→18:00)
[2018-11-05] MEDS ORDERED: KCL 20 MEQ/100 mL IVPB 20 MEQ/100 ML BAG IV SCH (06:00)
[2018-11-05] MEDS ORDERED: PNEUMOCOCCAL VACCINE 0.5 ML IMVAC ONE (07:00)
[2018-11-05] MEDS ORDERED: MAGNESIUM SULFATE 1 gm IVPB 1 GM/100 ML BAG IV ONE (07:20)
--- NOTE | 2018-11-05 08:32 | RAD REPORT ---
EXAM DESCRIPTION: RAD - Chest Single View - 11/05/2018 6:58 am CLINICAL HISTORY: pleural effusions Chest pain. COMPARISON: Chest Single View dated 08/16/2018; Chest Single View dated 12/15/2016; Chest Single View da kayleen 04/19/2016; Chest Single View dated 04/17/2016 FINDINGS: Portable technique limits examination quality. Mild to moderate interstitial pulmonary edema is seen with trace pleural fluid. The heart is signific antly enlarged. No displaced fractures. IMPRESSION: Moderate CHF pattern is noted.
[2018-11-05] MEDS ORDERED: CEFTRIAXONE 1 GM/NS 50 ML 1 GM/50 ML BAG IV SCH (09:00)
[2018-11-05] MEDS: CEFTRIAXONE/SWI 1gm 1 GM/10 ML SYR IV SCH ×2 (09:00→20:33)
[2018-11-05] MEDS: FAMOTIDINE 20 MG/2 ML VIAL IV SCH (09:09)
--- NOTE | 2018-11-05 11:23 | ECHO ---
HEIGHT: 0 ft 0 in WEIGHT: 115 lb 0 oz DATE OF STUDY: 11/05/[address]: Rafal Tillman DO 2-DIMENSIONAL: YES M.MODE: YES DOPPLER: YES COLOR FLOW: YES TDS: NO PORTABLE: NO DEFINITY: NO BUBBLE STUDY: NO DIAGNOSIS: ASSESS PERICARDIAL EFFUSION CARDIAC HISTORY: CATHERIZATION: YES SURGERY: NO PROSTHETIC VALVE: NO PACEMAKER: NO MEASUREMENTS (cm) DIASTOLIC (NORMALS) SYSTOLIC (NORMALS) IVSd 1.3 (0.6-1.2) LA Diam 4.7 (1.9-4.0) LVEF 62% LVIDd 3.7 (3.5-5.7) LVIDs 2.5 (2.0-3.5) %FS 33% LVPWd 1.3 (0.6-1.2) Ao Diam 2.7 (2.0-3.7) 2 DIMENSIONAL ASSESSMENT: RIGHT ATRIUM: NORMAL LEFT ATRIUM: DILATED RIGHT VENTRICLE: NORMAL LEFT VENTRICLE: NORMAL TRICUSPID VALVE: NORMAL MITRAL VALVE: MITRAL ANNULAR CALCIFICATION PULMONIC VALVE: NORMAL AORTIC VALVE: SCLEROSIS PERICARDIAL EFFUSION: SMALL AORTIC ROOT: NORMAL LEFT VENTRICULAR WALL MOTION: NORMAL. DOPPLER/COLOR FLOW: MILD TRICUSPID REGURGITATION. COMMENTS: SMALL PERICARDIAL EFFUSION. NO TAMPONADE. NORMAL LEFT VENTRICULAR EJECTION FRACTION AND SIZE. MITRAL ANNULAR CALCIFICATION. LEFT ATRIAL ENLARGEMENT. AORTIC SCLEROSIS. TECHNOLOGIST: ANTHONY SOUZA RDCS
[2018-11-05] MEDS ORDERED: POTASSIUM CL SA 10 MEQ TAB PO ONE (11:49)
[2018-11-05] MEDS: ROPINIROLE HCL 0.25 MG TAB PO SCH ×2 (15:05→20:32)
--- NOTE | 2018-11-05 16:27 | PN ---
Date of Progress Note: 11/05/2018 Subjective: Patient seen and examined. Chart reviewed and case discussed with RN. [employer] services were used due to patient being primarily Belarusian speaking. No family at the bedside . Medications: List reviewed. Code Status: Full. Physical Examination: Vital Signs: Temperature 97.6, heart rate 87, blood pressure 100/58, respirations 18, O2 97% on room air. General: Awake, alert, oriented x3. Elderly female, some mild distress. CV: S1, S2. Irregularly irregular. Peripheral pulses present. Respiratory: Moving air well bilaterally, no wheezing. Gastrointestinal: Abdomen is soft. Tenderness to palpation in the suprapubic region. No rebound or guarding. No rigidity. Extremities: No clubbing, cyanosis, or edema neuro cranial nerves 2-12 intact grossly. No focal nitza rological deficit. Speech is normal. Laboratory Data: Sodium 138, potassium 2.8, repeat potassium is 3.2, chloride 106, CO2 24, BUN 16, c reatinine 3.87, glucose 98. Lactic acid 1.3, calcium 7.5, magnesium 1.7. WBC 22,000, hemoglobin and hematocrit are 11.8 and 36.3, platelets 177, neutrophils 88%. Blood cultures pending. Stool occult blood is positive. Echocardiogram shows ejection fraction of 62%. Small pericardial effusion. No tamponade in normal left ventricular ejection fraction and size. Mitral annular calcification. Left atrial enlargement. Aortic sclerosis. Chest x-ray shows moderate CHF pattern. Assessment: A 78-year-old female with: 1.Acute colitis with failed outpatient treatment. We will continue with IV antibiotics follow up on culture results. 2.Non-intractable nausea and vomiting, improved. Continue antiemetics. We will start on clear liqu id diet. 3.Leukocytosis. 4.Essential hypertension. 5.End-stage renal disease, on hemodialysis. Nephrology has been consulted. We will continue dialys is as scheduled. 6.History of cerebrovascular accident. We will resume home medications as appropriate. 7.Diabetes mellitus type 2 [id number] with hyperglycemia. We will continue with sliding scale insulin. 8.Hypokalemia replace and monitor. 9.Hypomagnesemia we will replace and monitor. 10.Chronic effusion pericardial effusion. Echocardiogram confirms effusion which is small. There i s no tamponade. Cardiology on board. No need for drainage at this time. Plan: We will continue to replace electrolytes. Resume home medications as appropriate. The patien t does have Hemoccult-positive stool. We will obtain stool culture and fecal leukocyte. The patient was on vancomycin at home oral vancomycin at home. We will confirm with family members regarding hi story of C diff is. We will obtain PT, OT consultation, social work consultation for discharge plann ing, acute. SA/MODL Voice ID: [id number] Report ID: [id number]
[2018-11-05] MEDS: VANCOMYCIN ORAL SOLN 250 MG/5 ML OSYR PO SCH (17:25)
[2018-11-05] MEDS ORDERED: ALBUMIN HUMAN 25% 50 ML IV ONE (18:00)
--- NOTE | 2018-11-05 19:39 | CON ---
Date of Consultation: 11/05/2018 Reason For Consultation: End-stage renal disease, electrolyte imbalance, hypokalemia. History Of Present Illness: This is a pleasant 78-year-old female well known to me from dialysis wit h significant past medical history of end-stage renal disease, on hemodialysis TTS at [facility] modialysis Unit through the left arm AV fistula; hypertension; diabetes, complicated with neuropathy and nephropathy; GERD; recent CVA. Patient has been having diarrhea for the last couple of weeks. A t that time, we sent her from the dialysis unit, requesting for C difficile. Unfortunately, patient did not do it. Patient was started by us on Flagyl a few days ago. Apparently, her condition did no t improve. For that reason, patient came to the hospital complaining of abdominal pain and diarrhea. Lab workup showed significant colitis and hypokalemia. For that reason, we have been consulted. Jannette villa had a marginal fever and she was tachycardic. Past Medical History: 1.Hypertension. 2.Hyperlipidemia. 3.End-stage renal disease, on hemodialysis TTS through the left arm AV fistula. 4.CVA. Home Medications: Insulin, amlodipine, hydralazine, lisinopril, isosorbide. Social History: Lives with family. Denies smoking. Denies drinking. Denies drug abuse. Past Surgical History: AV fistula creation. Review of Systems: Head and Neck: No red eye. No ear pain. GI: Has nausea, decreased intake. Has diarrhea. : No polyuria, anuric. [employer] MANAGER: No vaginal discharge. Respiratory: No shortness of breath. Cardiovascular: No chest pain. Endocrine: No polydipsia. Skin: No rash. Neuro: Confused. Musculoskeletal: No joint pain. Physical Examination: Vital Signs: Blood pressure down to 80 yesterday. Patient was started on normal saline at 50 per ho ur. Pulse of 89. Chest: Clear to auscultation. Heart: S1, S2. Systolic murmur. Abdomen: Mild tenderness. No guarding. Extremities: No edema. Laboratory Data: WBC 22, H and H 11.8/36.3, platelets 177. Sodium 138, potassium 2.8, bicarb 24, BU N 16, creatinine 3.8, calcium 7.5. Magnesium 1.7, albumin 1.9. Current Medications: 1.Ceftriaxone. 2.Metronidazole. 3.Vancomycin. 4.Amlodipine. 5.Atorvastatin. 6.Carvedilol. 7.Pepcid. 8.Pantoprazole. Assessment And Plan: 1.End-stage renal disease. Normal to dry side. I am going to go ahead and arrange for the dialysis today as the patient is due for the dialysis. We will dialyze on low blood flow as the patient does not need significant clearance and we will follow up the patient. 2.Hypertension, currently hypotension. I am going to go ahead and discontinue all blood pressure me dications. We will start the patient on normal saline and we will follow up the patient. 3.Hypokalemia. We will supplement cautiously. Patient is going to be dialyzed on 4 potassium bath to correct the potassium. 4.Colitis, as by primary. 5.Diabetes, as by primary. Thank you, Dr. Hale, for allowing us to participate in the care of your patient. ANTONI Voice ID: [id number] Report ID: [id number]
[2018-11-05] MEDS: D5 0.9 NS 1,000 ML IV SCH (20:28)
[2018-11-05] MEDS: INSULIN GLARGINE 100 UNITS/ML SQ SCH (20:29)
[2018-11-05] MEDS: ATORVASTATIN 40 MG TAB PO SCH (20:32)
[2018-11-05] MEDS: ONDANSETRON 4 MG/2 ML VIAL IV PRN (20:32)
[2018-11-05] MEDS: APIXABAN 2.5 MG TABLET PO SCH (20:32)
[2018-11-05] MEDS ORDERED: CARVEDILOL 3.125 MG TAB PO SCH (21:00)
[2018-11-06] MEDS: METRONIDAZOLE 500mg IVPB 500 MG/100 ML BAG IV SCH ×5 (01:35→23:45)
[2018-11-06 04:42] LABS: Absolute Lymphocytes (CBC) 0.9 K/uL (0.7-4.9); Basophils % 0.7 % (0-1.3); Hematocrit 32.2 % (36.0-45.0); Lymphocytes % 8.3 % (15.3-44.8); MPV 9.2 fL (7.6-11.3); RBC Red Blood Cell Count 3.52 M/uL (3.86-4.86)
[2018-11-06 04:54] LABS: AST/SGOT 13 U/L (15-37); Alkaline Phosphatase 101 U/L (45-117); BUN Blood Urea Nitrogen 7 mg/dL (7-18); Bicarbonate 26 mmol/L (21-32); Bilirubin Total 0.3 mg/dL (0.2-1.0); Glucose Level 79 mg/dL (74-106); Potassium 3.4 mmol/L (3.5-5.1); Protein, Total 5.8 g/dL (6.4-8.2); Sodium Level 140 mmol/L (136-145)
[2018-11-06 05:22] LABS: ALT/SGPT < 6 U/L (12-78)
[2018-11-06] MEDS: INSULIN -REGULAR HUMAN 50 UNIT/0.5 ML ML SQ SCH ×5 (06:00→21:00)
[2018-11-06] MEDS: MORPHINE 2 MG/ML SYR IV PRN ×2 (06:38→13:46)
[2018-11-06] MEDS: VANCOMYCIN ORAL SOLN 250 MG/5 ML OSYR PO SCH ×5 (06:39→23:44)
[2018-11-06] MEDS: PANTOPRAZOLE 40MG TABLET PO SCH (06:51)
[2018-11-06] MEDS: ONDANSETRON 4 MG/2 ML VIAL IV PRN ×2 (06:51→11:01)
[2018-11-06] MEDS: CEFTRIAXONE/SWI 1gm 1 GM/10 ML SYR IV SCH ×2 (08:07→21:29)
[2018-11-06] MEDS: FAMOTIDINE 20 MG/2 ML VIAL IV SCH (08:07)
[2018-11-06] MEDS: APIXABAN 2.5 MG TABLET PO SCH ×2 (08:08→21:17)
[2018-11-06] MEDS: ROPINIROLE HCL 0.25 MG TAB PO SCH ×3 (08:08→21:16)
[2018-11-06] MEDS ORDERED: AMLODIPINE 10 MG TAB PO SCH (09:00)
--- NOTE | 2018-11-06 10:42 | EKG ---
Test Date: 2018-11-04 Test Time: 22:53:56 Contact Officer: RT MEASUREMENT RESULTS: Intervals: Rate: 92 ME: QRSD: 96 QT: 410 QTc: 507 [place]: P: ME: QRS: -48 T: 194 INTERPRETIVE STATEMENTS: Atrial fibrillation Left axis deviation ST & T wave abnormality, consider inferolateral ischemia or digitalis effect Prolonged QT Abnormal ECG Compared to ECG 09/20/2018 21:15:08 Possible ischemia now present ST (T wave) deviation still present Electronically Signed On 11-06-18 10:41:44 CDT by Haroldo Arizmendi
[2018-11-06] MEDS: D5 0.9 NS 1,000 ML IV SCH ×2 (15:00→23:45)
--- NOTE | 2018-11-06 15:11 | PN ---
Subjective: Patient was admitted with colitis. Patient is status post dialysis yesterday. Physical Examination: Vital Signs: Blood pressure 101/51, pulse of 110. Chest: Clear to auscultation. Heart: S1, S2. Systolic murmur. Abdomen: Soft, nontender. Extremities: No edema. Laboratory Data: WBC 11, H and H 10.5/32.2, platelets 172. Sodium of 140, potassium 3.4, bicarb 26, BUN 7, creatinine 2.4, calcium 7.6. Current Medications: The patient on its include; 1.Ceftriaxone. 2.Metronidazole. 3.Vancomycin oral. 4.Eliquis. 5.Heparin. 6.Atorvastatin. 7.Requip. Assessment And Plan: 1.End-stage renal disease. Normal volume. I am going to continue the patient on dialysis. Patient is going to be due for dialysis tomorrow. We will dialyze the patient on high potassium bath. 2.Hypertension, controlled, optimal. Continue to monitor the patient. 3.Secondary hyperparathyroidism, stable. 4.Colitis. Continue current antibiotic. ANTONI Voice ID: [id number] Report ID: [id number]
--- NOTE | 2018-11-06 16:23 | PN ---
Date of Progress Note: 11/06/2018 Subjective: Patient seen and examined. Chart reviewed and case discussed with RN and Dr. Meek. Patient continues to have abdominal pain, nausea, and vomiting. Unable to tolerate any liquids. Cypriot core machine tender was used to communicate. Medications: List reviewed. Physical Examination: Vital Signs: Temperature 97, heart rate 110, blood pressure 101/51, respirations 16, O2 of 95% on room air. General: Awake, alert, and oriented x3. Elderly female, ill appearing. No family at the bedside. CV: S1, S2. Irregularly irregular rhythm. Peripheral pulses present. Respiratory: Moving air well bilaterally. No wheezing. Gastrointestinal: Abdomen is soft. Mild tenderness to palpation. No rebound or guarding. Bowel sounds positive. Extremities: No clubbing, cyanosis, or edema. Neurologic: Nonfocal. Laboratory Data: Sodium 140, potassium 3.4, chloride 109, CO2 of 26, BUN 7, creatinine 2.24, glucose 79, calcium 7.5, magnesium 2, albumin 2. WBC 11, H and H 10.5 and 32.2, platelets 172, neutrophils 82%. Fecal occult blood is positive. No fecal leukocytes. Blood cultures, no growth to date. Assessment And Plan: A 78-year-old female with: 1. Acute colitis with failed outpatient treatment. We will continue with IV antibiotics. Blood cultures are negative to date. Patient apparently was taking oral vancomycin at home, possibly secondary to C diff. WBC count has improved. We will recheck procalcitonin in a.m. 2. Intractable nausea and vomiting, not able to tolerate any liquids. Patient continues to have multiple episodes of nausea and vomiting. We will consult GI. Patient may benefit from EGD. 3. End-stage renal disease, on hemodialysis. We will continue dialysis as scheduled. Appreciate Dr. Carter's input. 4. Hypokalemia. Replace and monitor cautiously due to end-stage renal disease. 5. History of cerebrovascular accident. Patient was able to ambulate with PT with assist. 6. Diabetes mellitus type 2, kyb-qugvbfq-ndjfhiuqj with hyperglycemia. We will continue sliding scale insulin and monitor blood glucose levels. 7. Hypomagnesemia, replace and monitor. 8. Chronic pericardial effusion. No tamponade on echocardiogram. No drainage or pericardiocentesis indicated at this time. 9. Atrial fibrillation chronic. Patient is on Eliquis. H and H are stable. We will continue to monitor. Plan: Continue IV antibiotics. GI consultation. Likely discharge in the next 24-48 hours. Recommend group home facility placement. Patient states that she is usually home alone, unable to take care of herself, and requires assistance with ambulation. /SARAH Voice ID: [id number] Report ID: [id number] ORLY
[2018-11-06] MEDS: PROMETHAZINE 25 MG/ML VIAL IV PRN (18:07)
[2018-11-06] MEDS: INSULIN GLARGINE 100 UNITS/ML SQ SCH (21:00)
[2018-11-06] MEDS: ATORVASTATIN 40 MG TAB PO SCH (21:17)
[2018-11-07] MEDS: PROMETHAZINE 25 MG/ML VIAL IV PRN (01:19)
[2018-11-07] MEDS: METRONIDAZOLE 500mg IVPB 500 MG/100 ML BAG IV SCH ×4 (05:11→23:06)
[2018-11-07] MEDS: VANCOMYCIN ORAL SOLN 250 MG/5 ML OSYR PO SCH ×4 (05:11→23:06)
[2018-11-07] MEDS: PANTOPRAZOLE 40MG TABLET PO SCH (05:12)
[2018-11-07 07:09] LABS: Absolute Lymphocytes (CBC) 1.1 K/uL (0.7-4.9); Basophils % 0.6 % (0-1.3); Hematocrit 33.4 % (36.0-45.0); Lymphocytes % 12.1 % (15.3-44.8); MPV 9.5 fL (7.6-11.3); RBC Red Blood Cell Count 3.63 M/uL (3.86-4.86)
[2018-11-07] MEDS: INSULIN -REGULAR HUMAN 50 UNIT/0.5 ML ML SQ SCH ×4 (07:30→21:00)
[2018-11-07 07:47] LABS: Albumin 1.9 g/dL (3.4-5.0); Bilirubin Total 0.2 mg/dL (0.2-1.0); Potassium 3.2 mmol/L (3.5-5.1); Protein, Total 5.7 g/dL (6.4-8.2)
[2018-11-07 08:03] LABS: Blood Morphology Comment NOT SEEN (NOT SEEN); Platelet Estimate ADEQ
[2018-11-07] MEDS ORDERED: POTASSIUM PHOS IN 0.9 % NACL 15 MMOL/250 ML BAG IV ONE (09:00)
[2018-11-07] MEDS: CEFTRIAXONE/SWI 1gm 1 GM/10 ML SYR IV SCH ×2 (09:53→21:00)
[2018-11-07] MEDS: APIXABAN 2.5 MG TABLET PO SCH ×2 (09:53→21:00)
[2018-11-07] MEDS: FAMOTIDINE 20 MG/2 ML VIAL IV SCH (09:53)
[2018-11-07] MEDS: ROPINIROLE HCL 0.25 MG TAB PO SCH ×3 (09:53→22:24)
[2018-11-07] MEDS: D5 0.9 NS 1,000 ML IV SCH (11:00)
--- NOTE | 2018-11-07 15:03 | PN ---
Date of Progress Note: 11/07/2018 Subjective: Patient seen and examined. Chart reviewed and case discussed with RN and Dr. Garcia. Patient seems to have improved today. Family at the bedside. Still complaining of significant akira sea and vomiting. Pain has subsided and was unable to tolerate her clear liquid diet. Medications: List reviewed. Physical Examination: Vital Signs: Temperature 97.9, heart rate 106, blood pressure 120/64, respirations 18, O2 of 95% on room air. General: Awake, alert, and oriented x3. Elderly female, not in any acute distress. CV: S1, S2. Irregularly irregular rhythm. Peripheral pulses present. Respiratory: Moving air well bilaterally. No wheezing. Gastrointestinal: Abdomen is soft, nontender, nondistended. Positive bowel sounds. No guarding or rigidity. Extremities: No clubbing, cyanosis, or edema. Neurologic: Nonfocal. Laboratory Data: Sodium 146, potassium 3.2, chloride 114, CO2 of 22, BUN 10, creatinine 3.21, glucos e 122, calcium 7.1, phosphorus 2.5, albumin 1.9. WBC 9.1, H and H 10.8 and 33.4, platelets 172, neut rophils 78%. Stool culture no Salmonella Shigella, or Campylobacter does show 2+ yeast. Blood cultu res, no growth to date. Assessment And Plan: A 78-year-old female with: 1.Acute colitis with failed outpatient treatment. Continue with IV antibiotics. WBC count trending down, now normalized. Pain has improved, however, still nauseated. 2.Intractable nausea and vomiting. Not able to tolerate liquids, improved with Phenergan. GI has paula mojica consulted. May need EGD. 3.Hypernatremia. We will continue to monitor, adjust fluids. 4.End-stage renal disease, on hemodialysis. We will continue dialysis as scheduled. Nephrology on board. 5.Hypokalemia, replaced. We will continue to monitor. 6.History of cerebrovascular accident, MCA territory back in August, was treated at [facility] . No significant deficits. Continue PT. 7.Diabetes mellitus type 2, xlu-bryqmnb-aagerazqo with hyperglycemia. We will continue sliding scal e insulin. Monitor blood glucose levels. 8.Hypomagnesemia. We will replace and monitor. 9.Chronic pericardial effusion, stable. There is no tamponade. No need for aggressive pericardioce ntesis at this time. 10.Atrial fibrillation, chronic, on Eliquis, rate controlled. Plan: GI evaluation, possible EGD, if not improving. /SARAH Voice ID: [id number] Report ID: [id number]
[2018-11-07] MEDS ORDERED: EPOETIN ALFA 10,000 UNIT/ML VIAL IV SCH (16:30)
[2018-11-07] MEDS: MORPHINE 2 MG/ML SYR IV PRN (17:29)
--- NOTE | 2018-11-07 20:03 | PN ---
Date of Progress Note: 11/07/2018 Subjective: The patient was admitted with colitis. The patient still complaining of nausea and vomi ting, not tolerating any food. Physical Examination: Vital Signs: When I saw the patient, blood pressure 97/65, pulse of 104. Chest: Clear to auscultation. Heart: S1, S2. Regular. Abdomen: Mild tenderness. No guarding or rebound. Extremities: No edema. Laboratory Data: WBC 9.1, H and H 10.8/33.4, platelets 172. Sodium 146, potassium 3.2, bicarb 22, B UN 10, creatinine 3.2, calcium 7.1. Current Medications: The patient is on include: 1.Ceftriaxone. 2.Metronidazole. 3.Vancomycin 125 q.6 hours. 4.Promethazine. 5.Eliquis. 6.Atorvastatin. 7.Requip. 8.Pepcid. 9.Pantoprazole. Assessment And Plan: 1.End-stage renal disease. Normal volume. We will go ahead and arrange for the dialysis tomorrow. Patient is going to be dialyzed on high potassium bath given the persistent hypokalemia. 2.Hypertension, currently hypotension. Keep holding all blood pressure medications. 3.Anemia of chronic kidney disease, stable. We will continue the patient on Epogen. 4.Colitis. Continue current antibiotic. We will follow up with Primary. ANTONI Voice ID: [id number] Report ID: [id number]
[2018-11-07] MEDS: INSULIN GLARGINE 100 UNITS/ML SQ SCH ×2 (21:00→23:06)
[2018-11-07] MEDS: ATORVASTATIN 40 MG TAB PO SCH (22:24)
[2018-11-08] MEDS: D5 0.9 NS 1,000 ML IV SCH (02:52)
[2018-11-08] MEDS: PANTOPRAZOLE 40MG TABLET PO SCH ×2 (05:12→16:37)
[2018-11-08] MEDS: METRONIDAZOLE 500mg IVPB 500 MG/100 ML BAG IV SCH ×4 (05:12→23:28)
[2018-11-08] MEDS: VANCOMYCIN ORAL SOLN 250 MG/5 ML OSYR PO SCH ×4 (05:12→23:28)
[2018-11-08] MEDS: MORPHINE 2 MG/ML SYR IV PRN ×2 (05:13→16:40)
[2018-11-08 06:18] VITALS: BMI 3562.8
[2018-11-08] MEDS: INSULIN -REGULAR HUMAN 50 UNIT/0.5 ML ML SQ SCH ×4 (07:30→20:23)
[2018-11-08 07:44] LABS: Absolute Lymphocytes (CBC) 0.9 K/uL (0.7-4.9); Basophils % 2.1 % (0-1.3); Hematocrit 33.9 % (36.0-45.0); Lymphocytes % 13.7 % (15.3-44.8); MPV 8.9 fL (7.6-11.3); RBC Red Blood Cell Count 3.68 M/uL (3.86-4.86)
[2018-11-08 07:49] LABS: Phosphorus 1.3 mg/dL (2.5-4.9); Potassium 3.2 mmol/L (3.5-5.1)
[2018-11-08] MEDS ORDERED: POTASSIUM PHOS IN 0.9 % NACL 15 MMOL/250 ML BAG IV ONE (08:01)
[2018-11-08] MEDS: APIXABAN 2.5 MG TABLET PO SCH ×3 (08:37→20:38)
[2018-11-08] MEDS: CEFTRIAXONE/SWI 1gm 1 GM/10 ML SYR IV SCH ×2 (08:40→20:23)
[2018-11-08] MEDS: ROPINIROLE HCL 0.25 MG TAB PO SCH ×3 (08:40→20:21)
[2018-11-08] MEDS: FAMOTIDINE 20 MG/2 ML VIAL IV SCH (08:40)
[2018-11-08] MEDS ORDERED: NA CHLORIDE 0.9% 500 ML ONE (12:15)
[2018-11-08] MEDS ORDERED: PROPOFOL 200 MG/20 ML VIAL IV ONE (12:32)
[2018-11-08] MEDS ORDERED: NS 0.9% VIAL 10 ML ONE (12:32)
[2018-11-08] MEDS ORDERED: Phenylephrine HCl 10 MG/ML 1 ML VIAL ONE (12:32)
[2018-11-08] MEDS ORDERED: LIDOCAINE 1% MPF 5 ML VIAL ONE (12:33)
[2018-11-08] MEDS ORDERED: ETOMIDATE 20 MG/10 ML VIAL IV ONE (12:33)
[2018-11-08] MEDS ORDERED: EPOETIN ALFA 10,000 UNIT/ML VIAL IV SCH ×2 (12:45)
--- NOTE | 2018-11-08 13:30 | P.PN ---
Subjective Date of Service: 11/08/18 Primary Care Provider: Nephrology-Dr. Carter Chief Complaint: Abdominal pain Subjective: Improving Pt with ESRD , presented for Abd pain, WBC 22 Today no new complaints WBC normalized plan for EGD today HD TTsa Physical Examination - Vital Signs Temperature: 98.4 F Blood Pressure: 91/43 Pulse: 110 Respirations: 16 Pulse Ox (%): 96 - Physical Exam General: Alert, In no apparent distress HEENT: Atraumatic Neck: Supple, Without JVD or thyroid abnormality Respiratory: Clear to auscultation bilaterally Cardiovascular: No edema, Regular rate/rhythm, No gallops, No rubs, No murmurs Gastrointestinal: Normal bowel sounds, Soft and benign - Studies Medications List Reviewed: Yes Assessment And Plan - Plan ESRD on HD ttsat Hd TTsat renal dose meds Anemia on MALACHI MBD cont binders collitis on cipro, flagyl and PO vancoo F/U stool culture hypokalemia HD with 3K bath
--- NOTE | 2018-11-08 13:39 | PN ---
Date of Progress Note: 11/08/2018 Subjective: Patient seen and examined. Chart reviewed and case discussed with RN and Dr. Meek. Patient going for EGD today. Medications: List reviewed. Physical Examination: Vital Signs: Temperature 97.4, heart rate 97 blood pressure 110/59, respirations 16, O2 of 96% on ro om air. General: Awake, alert, and oriented x3. Elderly female. CV: S1, S2, irregularly irregular. Peripheral pulses present. Respiratory: Moving air well bilaterally, no wheezing. Gastrointestinal: Abdomen is soft. Mild tenderness to palpation. No rebound or guarding. Positive bowel sounds. Extremities: No clubbing, cyanosis, or edema. Neurologic: Nonfocal. Laboratory Data: Sodium 141, potassium 3.2, chloride 109, CO2 of 27, BUN 4, creatinine 2.15. Glucos e 120, calcium 7.7, phosphorus 1.3. WBC 6.2, H and H 11.1 and 33.9, platelets 196, neutrophils 75%. Blood cultures, no growth to date. Assessment And Plan: A 78-year-old female with: 1.Acute colitis with failed outpatient treatment. We will continue with IV antibiotics. Patient wa s also being treated apparently for C diff as an outpatient with oral vancomycin. We will continue f or now. WBC count is normalized. 2.Intractable nausea and vomiting. Patient going for EGD today. Continue antiemetics, unclear etio logy. 3.Hypernatremia, improved. 4.Hypomagnesemia. We will replace and monitor. 5.Hypokalemia. We will replace and monitor. 6.End-stage renal disease, on hemodialysis. Patient was dialyzed yesterday and we will continue rosa lysis as scheduled. Appreciate Nephrology input. 7.History of CVA, MCA territory, and no residual deficits. We will continue with PT. 8.Diabetes mellitus type 2 zmd-rcsrqik-ubnwbfzdd with hyperglycemia. Continue sliding scale insulin , monitor Accu-Cheks. 9.Chronic pericardial effusion, stable. No intervention required at this time. 10.Atrial fibrillation chronic on Eliquis, rate controlled. Plan: EGD today. Likely discharge to home with home health. The patient does not have any [facility] facility benefits once the patient is able to tolerate p.o. diet. /MODL Voice ID: [id number] Report ID: [id number]
[2018-11-08] MEDS: SUCRALFATE 1 GM TABLET PO SCH ×2 (16:37→20:21)
[2018-11-08] MEDS: ATORVASTATIN 40 MG TAB PO SCH (20:21)
[2018-11-08] MEDS: INSULIN GLARGINE 100 UNITS/ML SQ SCH (20:22)
[2018-11-08] MEDS: ALPRAZOLAM 0.25 MG TABLET PO PRN (21:25)
--- NOTE | 2018-11-09 01:04 | OP ---
Surgeon: David Meek MD Procedure Performed: Esophagogastroduodenoscopy. Performing Physician: David Meek MD. Indication For Procedure: Persistent nausea, vomiting. Plan For Anesthesia: Monitored anesthesia care. Complexity: Average. Technique: After obtaining informed consent from the patient explaining risks and complications whic h include, but are not limited to bleeding, infection, perforation, and anesthesia complication, cadence ent was placed in the left lateral position and sedation was given. From then on, the scope was adva nced through the mouth and carefully guided up to the second portion of the duodenum. After the comp letion of examination, scope and equipment were withdrawn and procedure terminated in a safe manner. Findings: Esophagus: No gross lesion seen in the upper and mid esophagus. In the distal esophagus, a small hiatal hernia was seen. There was evidence of LA grade B esophagitis as well as tongues of salmon mucosa which was around 2 cm suspicious of Post's. Biopsies were taken. Stomach: Moderat e patchy erythema seen in the body and antrum. Biopsies taken. In the antrum, 2 to 2.5 cm mass lesi on was seen. This did not appear malignant; however, adenomatous or dysplastic tissue cannot be rule d out. Biopsies taken from this area. In the pre-pyloric region, other 2 cm masslike lesions seen. This had a central depression and probably represents a pancreatic rest. Biopsies taken. Duodenum in the bulb, a superficial ulcer was visualized. Biopsies taken. The second portion of the duodenum appeared normal. Complications: None. Tolerance To Anesthesia: Excellent. Postoperative Diagnoses: Esophagitis, rule out Post's, hiatal hernia, gastric mass, rule out dysp lasia, duodenal ulceration. Plan: 1.Await pathology results. 2.Oral PPI b.i.d. 3.Carafate 4 times a day. 4.Follow up in the GI clinic in 1 week post discharge for results of the biopsies and further manage ment. US/MODL Voice ID: [id number] Report ID: [id number]
[2018-11-09] MEDS: VANCOMYCIN ORAL SOLN 250 MG/5 ML OSYR PO SCH ×3 (05:25→17:03)
[2018-11-09] MEDS: METRONIDAZOLE 500mg IVPB 500 MG/100 ML BAG IV SCH ×3 (05:25→18:00)
[2018-11-09] MEDS: D5 0.9 NS 1,000 ML IV SCH (05:26)
[2018-11-09 06:04] LABS: HBsAG Nonreactive (Nonreactive)
[2018-11-09 06:30] LABS: Phosphorus 2.7 mg/dL (2.5-4.9); Potassium 3.5 mmol/L (3.5-5.1)
[2018-11-09] MEDS: INSULIN -REGULAR HUMAN 50 UNIT/0.5 ML ML SQ SCH ×4 (07:30→20:33)
[2018-11-09] MEDS: FAMOTIDINE 20 MG/2 ML VIAL IV SCH (08:19)
[2018-11-09] MEDS: ROPINIROLE HCL 0.25 MG TAB PO SCH ×3 (08:19→20:29)
[2018-11-09] MEDS: APIXABAN 2.5 MG TABLET PO SCH ×2 (08:20→20:29)
[2018-11-09] MEDS: PANTOPRAZOLE 40MG TABLET PO SCH ×2 (08:21→16:30)
[2018-11-09] MEDS: CEFTRIAXONE/SWI 1gm 1 GM/10 ML SYR IV SCH (08:22)
[2018-11-09] MEDS: SUCRALFATE 1 GM TABLET PO SCH ×4 (09:52→20:29)
--- NOTE | 2018-11-09 13:23 | PN ---
Date of Progress Note: 11/09/2018 Subjective: Patient is seen and examined. Chart reviewed and case discussed with Dr. Meek and Oanh Lopez. The patient continues to report abdominal discomfort. States that she has absolutely no desire t o eat. No appetite. The patient had EGD done yesterday with multiple findings including esophagitis , gastric polyp mass, which appeared benign and ulcers. Medications: List reviewed. Physical Examination: Vital Signs: Temperature 97.5, heart rate 87, blood pressure 123/83, respirations 18, O2 96% on room air. General: Awake, alert, and oriented x3. Elderly female, in some mild distress, ill-appearing. CV: S1, S2. Irregularly irregular. Peripheral pulses present. Respiratory: Moving air well bilaterally. No wheezing. Gastrointestinal: Abdomen is soft. Minimal tenderness to palpation. No rebound or guarding. Posit remberto bowel sounds. Extremities: No clubbing, cyanosis, or edema. Neuro: Nonfocal. Laboratory Data: Sodium 143, potassium 3.5, chloride 113, CO2 22, BUN 5, creatinine 2.78, glucose 11 8, calcium 7.6, phosphorus 2.7. Hepatitis B antibody is reactive with immunity to hepatitis B. Bloo d cultures, no growth to date. Assessment: A 78-year-old female with: 1.Acute colitis with failed outpatient treatment. Continue IV antibiotics. Was apparently being tr eated for Clostridium difficile with oral vancomycin. WBC count normalized. 2.Intractable nausea and vomiting, status post esophagogastroduodenoscopy. 3.Esophagitis. 4.Duodenal ulcer. Continue with PPI p.o. b.i.d. 5.Gastric mass, likely benign sent for pathology. Appreciate Dr. Meek's input. 6.Hypernatremia, improved. 7.Hypomagnesemia, replaced. 8.Hypokalemia, corrected. Continue to monitor. 9.End-stage renal disease, on hemodialysis. Appreciate Nephrology input. We will continue dialysis as scheduled. 10.History of cerebrovascular accident. No residual deficits. 11.Diabetes mellitus type 2 zex-jgwapkm-xpmlhwdpf with hyperglycemia. We will continue Accu-Cheks a nd sliding scale insulin. 12.Chronic pericardial effusion. No intervention required at this time. 13.Atrial fibrillation chronic continue Eliquis and rate control. Plan: Encourage p.o. intake. If the patient is unable to tolerate any liquids, may need to place NG tube for nutrition. We will discuss further with GI and update family. /SARAH Voice ID: [id number] Report ID: [id number]
[2018-11-09] MEDS: ATORVASTATIN 40 MG TAB PO SCH (20:29)
[2018-11-09] MEDS ORDERED: HYDROCODONE/APAP 5/325 MG TAB PO PRN (21:18)
--- NOTE | 2018-11-09 21:46 | PN ---
Date of Progress Note: 11/09/2018 Chief Complaint: End-stage renal disease, on dialysis. Subjective: Patient has multiple medical problems including history of diabetes mellitus, diabetic kidney disease, hypertension. She presented to the hospital because of abdominal pain. She was found to have severe leukocytosis. Patient is scheduled to have EGD. Review of Systems: Patient denies new complaints. Physical Examination: Lungs: Few crackles at bases. Heart: S1, S2. Abdomen: Soft, benign. Extremities: No edema. Impression And Plan: 1. End-stage renal disease. Continue dialysis 3 times per week. 2. Anemia due to end-stage renal disease. Continue MALACHI. 3. Colitis. Patient is on Cipro, Flagyl and p.o. vancomycin. Patient had a stool culture. Monitor culture results. 4. Hypokalemia. Patient will have dialysis with 3 potassium dialysate. Monitor electrolytes. 5. Colitis. Continue treatment as started. CHRISTINE/SARAH Voice ID: [id number] Report ID: [id number] MTDD
[2018-11-09] MEDS: TRAMADOL HCL 50 MG TAB PO PRN (23:01)
[2018-11-09] MEDS: ALPRAZOLAM 0.25 MG TABLET PO PRN (23:01)
[2018-11-10] MEDS: INSULIN GLARGINE 100 UNITS/ML SQ SCH (00:43)
[2018-11-10] MEDS: METRONIDAZOLE 500mg IVPB 500 MG/100 ML BAG IV SCH ×3 (00:43→11:16)
[2018-11-10] MEDS: VANCOMYCIN ORAL SOLN 250 MG/5 ML OSYR PO SCH ×3 (00:46→11:17)
[2018-11-10] MEDS: TRAMADOL HCL 50 MG TAB PO PRN (06:14)
[2018-11-10] MEDS: INSULIN -REGULAR HUMAN 50 UNIT/0.5 ML ML SQ SCH ×2 (07:30→11:17)
[2018-11-10] MEDS: ROPINIROLE HCL 0.25 MG TAB PO SCH ×2 (07:46→13:01)
[2018-11-10] MEDS: SUCRALFATE 1 GM TABLET PO SCH ×2 (07:47→11:16)
[2018-11-10] MEDS: PANTOPRAZOLE 40MG TABLET PO SCH (07:47)
[2018-11-10] MEDS: FAMOTIDINE 20 MG/2 ML VIAL IV SCH (07:47)
[2018-11-10] MEDS: APIXABAN 2.5 MG TABLET PO SCH (07:47)
[2018-11-10 07:59] VITALS: O2SAT 95
[2018-11-10] MEDS: D5 0.9 NS 1,000 ML IV SCH (11:31)
[2018-11-10 12:29] VITALS: BP 123/66; TEMP 97.7
--- NOTE | 2018-11-11 00:53 | DS ---
Date of Discharge: 11/10/2018 Consultants: Dr. Mejia and Dr. Carter with Nephrology; Dr. Meek with GI. Procedures: On 11/08/2018, EGD, which showed esophagitis, rule out Post's; hiatal hernia; gastric mass, rule out dysphagia; duodenal ulceration. Admitting Diagnoses: 1.Colitis. 2.Leukocytosis. 3.Nausea, vomiting. 4.Hypertension. 5.End-stage renal disease, on hemodialysis. 6.History of cerebrovascular accident. 7.Diabetes mellitus type 2. Discharge Diagnoses: 1.Acute colitis with failed outpatient treatment, improving. 2.Intractable nausea and vomiting, resolved. 3.Esophagitis. 4.Duodenal ulcer. 5.Gastric mass, status post biopsy. Pathology pending. 6.Hypernatremia, improved. 7.Hypomagnesemia, replaced. 8.Hyperkalemia, corrected. 9.End-stage renal disease, on hemodialysis. 10.History of cerebrovascular accident. 11.Diabetes mellitus type 2, mus-owhybum-sugwujoqj with hyperglycemia. 12.Essential hypertension. 13.Chronic pericardial effusion. 14.Atrial fibrillation, chronic. Hospital Course: The patient is a 78-year-old female with history of bilateral eye blindness; CVA; d iabetes; end-stage renal disease, on dialysis; hypertension, admitted for abdominal pain. The patien t apparently was on trial of Cipro and oral vancomycin without significant improvement. The patient was started on IV medications and oral vancomycin was continued. It is unclear for how long she was on the oral vancomycin. The patient's white blood cell count improved and normalized, was initially 25.7. She did have intractable nausea and vomiting, unable to tolerate any diet. GI was consulted. The patient had EGD done, which showed duodenitis, esophagitis, hiatal hernia, showed gastric mass w hich was taken for biopsy, appeared to be benign per report. The patient was started on PPI b.i.d., was also started on Carafate. The patient did well. She was slowly able to tolerate clear liquid di et and was advanced to solids, which she was able to keep down. She was then cleared for discharge. She was unable to be set up for [facility] facility as she does not have any benefits. Therefo re, home health will be set up. Medications: As per medication reconciliation list. Followup: Follow up with primary care physician in 2-3 days. Follow up with GI in 1 week for biopsy results. Return to ER for worsening condition. Diet: Renal. Activity: Fall precautions, ambulate with assist. Physical Examination: General: Awake, alert, oriented, no acute distress. CV: S1, S2. Respiratory: Moving air well bilaterally. Abdomen: Soft, nontender, nondistended. Positive bowel sounds. Extremities: No clubbing, cyanosis, edema. Neurologic: Nonfocal. Total time spent discharging the patient was 33 minutes. /SARAH Voice ID: [id number] Report ID: [id number]
--- NOTE | 2018-11-11 02:16 | PN ---
Date of Progress Note: 11/10/2018 Chief Complaint: End-stage renal disease, on dialysis. Subjective: The patient has history of end-stage renal disease secondary to diabetes and hypertensio n. She has been dialyzed 3 times per week. She came to the hospital because of abdominal pain. She was found to have severe leukocytosis. The patient received antibiotics for colitis. She was treat ed with Cipro and Flagyl as well as vancomycin. The patient came to the hospital because of severe a ltered mental status, encephalopathy due to sepsis. Mental status is improving. Review of Systems: Denies fever or chills. Physical Examination: Lungs: Clear to auscultation bilaterally. Heart: S1, S2. Abdomen: Soft, benign. Extremities: No edema. Impression And Plan: 1.End-stage renal disease. Continue dialysis 3 times per week. Next dialysis tomorrow. 2.Anemia due to chronic kidney disease. Continue MALACHI. 3.Colitis. The patient is on Cipro, Flagyl, vancomycin; improving with current medication. Monitor cultures. 4.Hypokalemia. The patient will have dialysis with 3 potassium dialysate. Monitor electrolytes. 5.Colitis. Treatment started. CHRISTINE/MODL Voice ID: [id number] Report ID: [id number]
== END 2018-11-10 13:52 | disposition home health service (06) | DRG 391 ==
LOC: ER 14:55 → ERHOLD 16:41 → 4TH 19:13
PROVIDERS: ADMIT Family Medicine; ATTEND Family Medicine
PROC: 5A1D70Z Performance of Urinary Filtration, Intermittent, Less than 6 Hours Per Day (ICD-10-PCS; 2018-11-05)
PROC: 0DB78ZX Excision of Stomach, Pylorus, Via Natural or Artificial Opening Endoscopic, Diagnostic (ICD-10-PCS; 2018-11-08)
PROC: 0DB58ZX Excision of Esophagus, Via Natural or Artificial Opening Endoscopic, Diagnostic (ICD-10-PCS; 2018-11-08)
PROC: 0DB98ZX Excision of Duodenum, Via Natural or Artificial Opening Endoscopic, Diagnostic (ICD-10-PCS; principal; 2018-11-08 11:30)
DX: K52.9 Noninfective gastroenteritis and colitis, unspecified (principal); N18.6 End stage renal disease; I12.0 Hypertensive chronic kidney disease with stage 5 chronic kidney disease or end stage renal disease; J90 Pleural effusion, not elsewhere classified; I31.3 Pericardial effusion (noninflammatory); E87.0 Hyperosmolality and hypernatremia; E83.42 Hypomagnesemia; E87.6 Hypokalemia; D72.829 Elevated white blood cell count, unspecified; E11.22 Type 2 diabetes mellitus with diabetic chronic kidney disease; E11.43 Type 2 diabetes mellitus with diabetic autonomic (poly)neuropathy; K31.84 Gastroparesis; E11.65 Type 2 diabetes mellitus with hyperglycemia; I95.9 Hypotension, unspecified; E86.9 Volume depletion, unspecified; I48.2 Chronic atrial fibrillation; K20.9 Esophagitis, unspecified; D63.1 Anemia in chronic kidney disease; K26.9 Duodenal ulcer, unspecified as acute or chronic, without hemorrhage or perforation; K31.9 Disease of stomach and duodenum, unspecified; K44.9 Diaphragmatic hernia without obstruction or gangrene; K21.9 Gastro-esophageal reflux disease without esophagitis; H54.8 Legal blindness, as defined in USA; Z23 Encounter for immunization; Z79.01 Long term (current) use of anticoagulants; Z99.2 Dependence on renal dialysis; Z79.4 Long term (current) use of insulin; Z86.73 Personal history of transient ischemic attack (TIA), and cerebral infarction without residual deficits
CPT/HCPCS: 36415; 71045; 74176; 80048; 80053; 80076; 82274; 82962; 83605; 83690; 83735; 84100; 84132; 84145; 85025; 86317; 86704; 86706; 87040; 87045; 87046; 87340; 88305; 88312; 89055; 90935; 93005; 93306; 94760; 96365; 96375; 97110; 97163; 97166; 97530; 99285; J0696; J1644; J2250; J2270; J2370; J2405; J2550; J2704; J3010; J3475; J7030; P9047; Q4081